=== PATIENT | male | born 1950 | race Two or more races ===

== ENCOUNTER 2020-05-22 21:46 | Inpatient (IN) | payer OTHER ==
[~2020-05-22] VITALS: Ht 167.6 cm; Wt 91.6 kg
[2020-05-22 22:03] VITALS: BP 259/193
[2020-05-22 22:15] VITALS: BP 153/94
[2020-05-22] MEDS ORDERED: cefTRIAXone 1 GM in NS 55 ML IVPB ONE (22:15)
[2020-05-22] MEDS ORDERED: Enoxaparin 80mg Inj SUBQ ONE (22:15)
[2020-05-22] MEDS ORDERED: Azithromycin 500 MG in NS 275 ML IV ONE (22:15)
[2020-05-22] MEDS ORDERED: dexAMETHasone 10mg/ml Inj IV ONE (22:15)
--- NOTE | 2020-05-22 22:18 | Emergency Room Report ---
History of Present Illness General Chief Complaint: Dyspnea/Respdistress Source: Patient Present Illness HPI This is a 69-year-old male with a history of high blood pressure, diabetes and renal failure on hemodialysis. He presents with chief complaint of shortness of breath. He has been sick for the last 4 to 5 days. He has cough and congestion. Also fever and chills and body pain. Cough is nonproductive in nature. Symptom got worse today with increasing shortness of breath. Per EMS he was hypoxic on room air. His pulse ox was mid 80 percentile. He was placed on oxygen and sent here. Exertion and lying flat made it worse. Rest made it better. Denies any nausea vomiting or diarrhea. No sick contact. 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 COVID-19 Screening: Positive COVID-19 COVID-19 Testing Source: outside source Patient History Past Medical History: see triage record, old chart reviewed, DM, HTN, renal disease, dialysis Past Surgical History: none Pertinent Family History: none Social History: Denies: smoking Immunizations: other Reviewed Nursing Documentation: PMH: Agreed; PSxH: Agreed Nursing Documentation-PMH Hx Hypertension: Yes Review of Systems Constitutional: Reports: chills, fever, weakness Eye: Denies: eye pain, blurred vision ENT: Denies: ear pain, nose congestion, throat swelling Respiratory: Reports: cough, shortness of breath, CHAPA Cardiovascular: Denies: chest pain, palpitations Gastrointestinal: Denies: abdominal pain, diarrhea, nausea, vomiting Musculoskeletal: Denies: back pain, joint pain Skin: Denies: rash Neurological: Denies: headache, numbness Endocrine: Denies: increased thirst, increased urine Hematologic/Lymphatic: Denies: easy bruising All Other Systems: negative except mentioned in HPI Physical Exam Vital Signs Date Time Temp Pulse Resp B/P (MAP) Pulse Ox O2 Delivery O2 Flow Rate FiO2 05/22/20 21:53 101.1 110 22 259/193 (215) 90 Non-Rebreather 15.0 Vitals with high blood pressure, fever and hypoxia Sp02 EP Interpretation: reviewed, abnormal General Appearance: alert, moderate distress, other - Ill-appearing Head: normocephalic, atraumatic Eyes: bilateral eye PERRL, bilateral eye EOMI ENT: hearing grossly normal, normal pharynx Neck: full range of motion, supple, no meningismus Respiratory: chest non-tender, respiratory distress, decreased breath sounds, accessory muscle use, rhonchi, wheezing Cardiovascular #1: regular rate, rhythm, no murmur Gastrointestinal: normal bowel sounds, non tender, no mass, no organomegaly, no bruit, non-distended Musculoskeletal: back normal, normal range of motion, gait/station normal Psychiatric: mood/affect normal Procedures Critical Care Time Critical Care Time Critical care is mandated in this patient who presented with acute respiratory failure secondary to Covid pneumonia. Patient require my urgent intervention to attenuate the risks of respiratory collapse which may lead to cardiovascular collapse and . Critical care time is 35 minutes excluding any reportable procedure. Critical care time included evaluation, multiple reevaluation, looking at old charts, interpreting laboratory and diagnostic data, discussing case with patient and family and consultants, and charting. Medical Decision Making Diagnostic Impression: Primary Impression: Pneumonia due to COVID-19 virus Additional Impressions: Acute respiratory failure with hypoxia ACS (acute coronary syndrome) Anemia, chronic renal failure Qualified Codes: N18.5 - Chronic kidney disease, stage 5; D63.1 - Anemia in chronic kidney disease Hyperglycemia due to type 2 diabetes mellitus Qualified Codes: E11.65 - Type 2 diabetes mellitus with hyperglycemia Pancreatitis, acute Qualified Codes: K85.90 - Acute pancreatitis without necrosis or infection, unspecified ER Course This patient presents with hypoxia secondary to Covid pneumonia. Better on oxygen. Antibiotics, steroid and Lovenox given here. Prognosis is guarded because of his medical problem and diabetes. Patient will be admitted to the hospital. I contacted Dr. Seals for admission. EKG Diagnostic Results Troponin ordered: Yes Rate: normal Rhythm: NSR ST Segments: no acute changes Rhythm Strip Diag. Results EP Interpretation: yes Rate: 94 Rhythm: NSR, no PVC's, no ectopy Chest X-Ray Diagnostic Results Chest X-Ray Diagnostic Results : Chest X-Ray Ordered: Yes # of Views/Limited/Complete: 1 View Indication: Shortness of Breath EP Interpretation: Yes Interpretation: no effusion, no pneumothorax, other - Bilateral infiltrates Impression: Other - b/l infiltrates Last Vital Signs Date Time Temp Pulse Resp B/P (MAP) Pulse Ox O2 Delivery O2 Flow Rate FiO2 05/22/20 21:53 101.1 110 22 259/193 (215) 90 Non-Rebreather 15.0 Status: improved Disposition: ADMITTED INPATIENT Condition: Serious Referrals: NON PHYSICIAN (PCP) Forrest Bedolla MD May 22, 2020 22:18
[2020-05-22] MEDS: Albuterol ud Inhalation HHN PRN ×2 (22:28→22:59)
--- NOTE | 2020-05-22 22:41 | Diagnostic Imaging Report ---
EXAM: XR Chest, 1 View CLINICAL HISTORY: SOB TECHNIQUE: Frontal view of the chest. COMPARISON: None FINDINGS: Lungs: There are patchy bilateral infiltrates. Pleural space: There may be trace pleural effusions. There is no evidence of pneumothorax. Heart: The heart size at the upper limits of normal. Mediastinum: Unremarkable. Bones/joints: Unremarkable. IMPRESSION: Patchy bilateral infiltrate, worrisome for atypical pneumonia such as Covid 19.
[2020-05-22 23:35] LABS: CREATININE 22.9 MG/DL (0.55-1.30); POTASSIUM 4.8 MMOL/L (3.5-5.1)
[2020-05-22 23:55] LABS: ALBUMIN/GLOBULIN RATIO 0.7 (1.0-2.7); BILIRUBIN,TOTAL 0.6 MG/DL (0.2-1.0); CKMB 15.2 NG/ML (0.0-3.6)
[2020-05-22 23:57] LABS: BASOPHILS % (AUTO) 0.2 % (0.0-2.0); EOSINOPHILS % (AUTO) 0.1 % (0.0-3.0); HEMATOCRIT 27.6 % (42.0-52.0); HEMOGLOBIN 10.5 G/DL (14.2-18.0); LYMPHOCYTES % (AUTO) 10.5 % (20.0-45.0); MEAN CORPUSCULAR VOLUME 87 FL (80-99); MONOCYTES % (AUTO) 5.5 % (1.0-10.0); NEUTROPHILS % (AUTO) 83.7 % (45.0-75.0); PLATELET COUNT 197 K/UL (150-450); RED BLOOD COUNT 3.19 M/UL (4.70-6.10); RED CELL DISTRIBUTION WIDTH 12.8 % (11.6-14.8); WHITE BLOOD COUNT 7.5 K/UL (4.8-10.8)
[2020-05-23] VITALS (8 sets, daily range): BP systolic 93–161; BP diastolic 55–71
[2020-05-23 00:01] LABS: INR 1.2 (0.9-1.1)
[2020-05-23 00:23] LABS: APPEARANCE,URINE SLIGHTLY CLOUDY; BILIRUBIN, URINE NEGATIVE (NEGATIVE); COLOR,URINE PALE YELLOW; GLUCOSE, URINE (UA) 3+ (NEGATIVE); KETONES,URINE NEGATIVE (NEGATIVE); LEUKOCYTE ESTERASE ,URINE NEGATIVE (NEGATIVE); NITRITE,URINE NEGATIVE (NEGATIVE); PH,URINE 7 (4.5-8.0); PROTEIN,URINE 4+ (NEGATIVE); UROBILINOGEN,URINE NORMAL MG/DL (0.0-1.0)
[2020-05-23] MEDS ORDERED: Albuterol ud Inhalation HHN SCH (03:00)
--- NOTE | 2020-05-23 09:26 | Consultation ---
Consult Note Consult Note I am asked to eval and arrange for dialysis for the patient at the request of Dr Warner Chief Complaint: Dyspnea/Respdistress This is a 69-year-old male with a history of high blood pressure, diabetes and renal failure on hemodialysis. He presents with chief complaint of shortness of breath. He has been sick for the last 4 to 5 days. He has cough and congestion. Also fever and chills and body pain. Cough is nonproductive in nature. Symptom got worse today with increasing shortness of breath. Per EMS he was hypoxic on room air. His pulse ox was mid 80 percentile. He was placed on oxygen and sent here. Exertion and lying flat made it worse. Rest made it better. Denies any nausea vomiting or diarrhea. No sick contact. 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 COVID-19 Screening: Positive COVID-19 COVID-19 Testing Source: outside source Past Medical History: see triage record, old chart reviewed, DM, HTN, renal disease, dialysis Past Surgical History: none Pertinent Family History: none Social History: Denies: smoking Immunizations: other Reviewed Nursing Documentation: PMH: Agreed; PSxH: Agreed Hx Hypertension: Yes Vital Signs Date Time Temp Pulse Resp B/P (MAP) Pulse Ox O2 Delivery O2 Flow Rate FiO2 05/22/20 21:53 101.1 110 22 259/193 (215) 90 Non-Rebreather 15.0 Vitals with high blood pressure, fever and hypoxia PHYSICAL EXAMINATION: VITAL SIGNS: Temperature 98.9, pulse 62, blood pressure 131/65. Oxygen by nonrebreathing mask 15 L/min. HEART: Normal rate. LUNGS: Slightly decreased sounds. ABDOMEN: Soft, nontender. EXTREMITIES: No edema. Has AV graft in the left arm. NEUROLOGIC: He is awake, responsive. LABORATORY AND DIAGNOSTIC DATA: WBC 7.5, hemoglobin 10.5, hematocrit 27.6, platelets are 197. Lymphocyte is low, 10.5%. Troponin is 0.138. Sodium 131, potassium 4.8, chloride 89, bicarb 21, BUN 134, creatinine 22.9, glucose is 226, bilirubin 0.6, LDH 851, CK-MB 2143. Albumin is 3. Chest x-ray showed bilateral infiltrates may indicate atypical pneumonia such as COVID. COVID-19 test assay was positive. . Assessment/Plan Imp: Patient is being admitted with COVID-19 pneumonia Has acute respiratory distress and hypoxia End-stage renal disease missed last 2 dialysis Anemia of chronic kidney disease Pancreatitis Hyperglycemia Sugg: Hemodialysis today Renal diet Protonix, Renvela Nitropaste, aspirin Sliding scale insulin, Starlix Per orders Per consultants Taran Spears MD May 23, 2020 09:26
[2020-05-23] MEDS ORDERED: Acetaminophen 500mg (ES) tab ORAL PRN ×2 (10:15→23:45)
[2020-05-23 11:09] LABS: HEMATOCRIT 29.4 % (42.0-52.0); HEMOGLOBIN 10.7 G/DL (14.2-18.0); MEAN CORPUSCULAR VOLUME 88 FL (80-99); PLATELET COUNT 201 K/UL (150-450); RED BLOOD COUNT 3.33 M/UL (4.70-6.10); RED CELL DISTRIBUTION WIDTH 13.7 % (11.6-14.8); WHITE BLOOD COUNT 7.9 K/UL (4.8-10.8)
[2020-05-23 11:27] LABS: ALANINE AMINOTRANSFERASE 72 U/L (12-78); ALBUMIN 2.9 G/DL (3.4-5.0); ALBUMIN/GLOBULIN RATIO 0.6 (1.0-2.7); ALKALINE PHOSPHATASE 76 U/L (46-116); ANION GAP 22 mmol/L (5-15); ASPARTATE AMINO TRANSFERASE 112 U/L (15-37); BILIRUBIN,TOTAL 0.6 MG/DL (0.2-1.0); BLOOD UREA NITROGEN 146 mg/dL (7-18); CALCIUM 8.1 MG/DL (8.5-10.1); CARBON DIOXIDE 19 MMOL/L (21-32); CHLORIDE 88 MMOL/L (98-107); CHOLESTEROL 167 MG/DL (< 200); CREATININE 23.6 MG/DL (0.55-1.30); GAMMA GLUTAMYL TRANSPEPTIDASE 67 U/L (5-85); HDL CHOLESTEROL 21 MG/DL (40-60); PHOSPHORUS 10.3 MG/DL (2.5-4.9); POTASSIUM 5.5 MMOL/L (3.5-5.1); SODIUM 129 MMOL/L (136-145); TRIGLYCERIDES 437 MG/DL (30-150)
[2020-05-23 12:50] LABS: % IRON SATURATION 21 % (15-50); IRON 31 ug/dL (50-175); TOTAL IRON BINDING CAPACITY 148 ug/dL (250-450)
[2020-05-23] MEDS ORDERED: dexAMETHasone 10mg/ml Inj IV SCH (14:00)
[2020-05-23] MEDS ORDERED: HydrALAZINE 25mg tab ORAL PRN (14:23)
[2020-05-23] MEDS ORDERED: Metoclopramide 10mg/2ml Inj IVP PRN (14:24)
[2020-05-23] MEDS ORDERED: Sodium Polystyrene Sulfonate 15gm Powder ORAL SCH (14:30)
[2020-05-23] MEDS ORDERED: Varibar Nectar 240ml MC PRN (14:45)
[2020-05-23] MEDS ORDERED: Varibar Honey 250ml MC PRN (14:45)
[2020-05-23] MEDS ORDERED: Varibar Thin Liquid powder 148gm MC PRN (14:45)
[2020-05-23] MEDS ORDERED: Varibar Pudding 230ml MC PRN (14:45)
[2020-05-23] MEDS: Nitroglycerin Patch 0.4mg TDERMAL SCH (15:01)
[2020-05-23] MEDS: Aspirin Baby 81mg ORAL SCH (15:01)
--- NOTE | 2020-05-23 16:00 | Consultation ---
DATE OF CONSULTATION: 05/23/2020 INFECTIOUS DISEASE CONSULT PRIMARY ATTENDING PHYSICIAN: Estela Seals MD REASON FOR CONSULT: Sepsis, COVID-19 pneumonia. HISTORY OF PRESENT ILLNESS: This is a 69-year-old male admitted last night from home. The patient has shortness of breath, cough, congestion for 4 to 5 days, subjective fever, body pain, had decrease in O2 saturation to 80s, had fever of 101 in the ER, heart rate of 110 and was tachypneic. PAST MEDICAL HISTORY: Significant for diabetes mellitus, hypertension, anemia, end-stage renal disease, on hemodialysis. PAST SURGICAL HISTORY: Left arm AV graft. ALLERGIES: No known drug allergies. MEDICATIONS: Tylenol and albuterol. Got a dose of ceftriaxone and azithromycin and dexamethasone in the ER. SOCIAL HISTORY: Single. No history of smoking. The patient is a relatively poor historian. PHYSICAL EXAMINATION: VITAL SIGNS: Temperature 98.9, pulse 62, blood pressure 131/65. Oxygen by nonrebreathing mask 15 L/min. HEART: Normal rate. LUNGS: Slightly decreased sounds. ABDOMEN: Soft, nontender. EXTREMITIES: No edema. Has AV graft in the left arm. NEUROLOGIC: He is awake, responsive. LABORATORY AND DIAGNOSTIC DATA: WBC 7.5, hemoglobin 10.5, hematocrit 27.6, platelets are 197. Lymphocyte is low, 10.5%. Troponin is 0.138. Sodium 131, potassium 4.8, chloride 89, bicarb 21, BUN 134, creatinine 22.9, glucose is 226, bilirubin 0.6, LDH 851, CK-MB 2143. Albumin is 3. Chest x-ray showed bilateral infiltrates may indicate atypical pneumonia such as COVID. COVID-19 test assay was positive. IMPRESSION: Sepsis with tachycardia, tachypnea, and fever. Had COVID-19 disease, hypoxemic respiratory failure, end-stage renal disease, on hemodialysis, diabetes, hyperglycemia, anemia, lymphocytopenia, hypertension. RECOMMENDATION: Continue with dexamethasone. The patient is not eligible for remdesivir because of renal failure. Seems also to have pancreatitis. Lipase level is 1362. At the end of my exam, I thank Dr. Seals for involving me in the care of this patient. Kyaw Andrews M.D. DR: SOM JOB#: [id number] CC: STEFFI
[2020-05-23] MEDS: NovoLOG Insulin Flexpen SUBQ SCH ×2 (16:52→20:27)
[2020-05-23] MEDS: Docusate 100mg cap ORAL SCH (17:33)
--- NOTE | 2020-05-23 18:15 | Consultation ---
DATE OF CONSULTATION: 05/23/2020 PULMONARY CONSULTATION CONSULTING PHYSICIAN: Clyde Griffin MD HISTORY OF PRESENT ILLNESS: This is a 69-year-old male with a history of ESRD, on dialysis. He has missed dialysis for approximately 5 days. He is known hypertensive and is also diabetic. The patient came to the hospital with cough and shortness of breath. He was found to be markedly hypoxic and he was placed on supplemental oxygen. Currently on my assessment, he is on non-rebreather mask. Upon review of his additional testing, he has also tested positive for COVID-19 pneumonia. PAST MEDICAL HISTORY: 1. ESRD, on dialysis. 2. Hypertension. 3. Diabetes mellitus. HOME MEDICATIONS: Reviewed and reconciled in the chart. REVIEW OF SYSTEMS: Denies any headaches, hematemesis, melena, hematochezia, night sweats, or weight loss. PHYSICAL EXAMINATION: GENERAL: Reveals a 69-year-old male. VITAL SIGNS: Blood pressure 130/60, heart rate 64, respirations 20, O2 saturation 97% on non-rebreather mask. HEENT: Unremarkable. CHEST: Showed decreased breath sounds bilaterally with normal heart sounds. ABDOMEN: Soft. EXTREMITIES: There is no edema. LABORATORY AND DIAGNOSTIC DATA: Lab testing shows hemoglobin 10.7. Creatinine is noted to be 22. Ferritin 1062. AST 127. LDH 851. Lipase 1362. ABG, pH 7.34, pCO2 of 30, and pO2 of 88. Coags show D-dimer of 0.97. Urinalysis is negative. Imaging study of chest was obtained, which shows patchy bilateral infiltrates. IMPRESSION: 1. COVID pneumonia. 2. Pulmonary edema. 3. ESRD, on dialysis. 4. Hypertension. 5. Diabetes mellitus. 6. Elevated inflammatory markers. 7. Pancreatitis. DISCUSSION: Admit to the hospital. The patient needs dialysis, which is being arranged. He will benefit from Decadron, which I will order. Defer use of remdesivir to ID specialist. Agree with broad-spectrum antibiotics. DVT prophylaxis with Lovenox/subcu heparin. Keep NPO due to elevated lipase. We will follow carefully. Clyde Griffin M.D. DR: Soila JOB#: [id number] CC:
[2020-05-23] MEDS: Heparin 5000 units/ml inj SUBQ SCH (20:47)
--- NOTE | 2020-05-23 21:20 | Cardiac Electrophysiology PN ---
Subjective Subjective [id number] Objective Last 24 Hour Vital Signs Date Time Temp Pulse Resp B/P (MAP) Pulse Ox O2 Delivery O2 Flow Rate FiO2 05/23/20 16:00 78 05/23/20 16:00 97.7 60 22 132/71 (91) 96 05/23/20 15:01 130/68 05/23/20 12:00 72 05/23/20 12:00 96.8 81 26 130/68 (88) 96 05/23/20 09:00 Non-Rebreather 15.0 05/23/20 08:49 Non-Rebreather 15.0 05/23/20 07:56 98.9 62 23 131/65 97 Non-Rebreather 15.0 100 05/23/20 07:17 98.9 62 23 131/65 97 Non-Rebreather 15.0 100 05/23/20 05:01 98.9 88 31 132/55 100 Non-Rebreather 15.0 100 05/23/20 03:14 98.9 106 28 148/66 98 Non-Rebreather 15.0 100 05/23/20 01:30 89 25 138/64 98 Non-Rebreather 15.0 05/23/20 00:15 99.1 94 29 118/65 100 Non-Rebreather 15.0 100 05/22/20 22:59 99.1 05/22/20 22:43 95 3 97 Non-Rebreather 15.0 100 94 29 96 05/22/20 22:37 97 34 100 Non-Rebreather 15.0 100 93 31 97 05/22/20 22:29 97 34 100 Non-Rebreather 15.0 100 91 30 100 05/22/20 22:15 101.1 69 28 153/94 99 Non-Rebreather 15.0 05/22/20 22:03 110 22 Non-Rebreather 15.0 05/22/20 22:03 101.1 112 22 259/193 90 Non-Rebreather 15.0 05/22/20 21:53 101.1 110 22 259/193 (215) 90 Non-Rebreather 15.0 Intake and Output 05/22/20 05/23/20 19:00 07:00 Intake Total 0 ml Balance 0 ml Intake Oral 0 ml Laboratory Tests Test 05/22/20 22:30 05/22/20 23:50 12/26/20 10:10 05/23/20 10:35 White Blood Count 7.5 K/UL (4.8-10.8) 7.9 K/UL (4.8-10.8) Red Blood Count 3.19 M/UL (4.70-6.10) L 3.33 M/UL (4.70-6.10) L Hemoglobin 10.5 G/DL (14.2-18.0) L 10.7 G/DL (14.2-18.0) L Hematocrit 27.6 % (42.0-52.0) L 29.4 % (42.0-52.0) L Mean Corpuscular Volume 87 FL (80-99) 88 FL (80-99) Mean Corpuscular Hemoglobin 32.8 PG (27.0-31.0) H 32.2 PG (27.0-31.0) H Mean Corpuscular Hemoglobin Concent 37.9 G/DL (32.0-36.0) H 36.5 G/DL (32.0-36.0) H Red Cell Distribution Width 12.8 % (11.6-14.8) 13.7 % (11.6-14.8) Platelet Count 197 K/UL (150-450) 201 K/UL (150-450) Mean Platelet Volume 7.5 FL (6.5-10.1) 7.6 FL (6.5-10.1) Neutrophils (%) (Auto) 83.7 % (45.0-75.0) H % (45.0-75.0) Lymphocytes (%) (Auto) 10.5 % (20.0-45.0) L % (20.0-45.0) Monocytes (%) (Auto) 5.5 % (1.0-10.0) % (1.0-10.0) Eosinophils (%) (Auto) 0.1 % (0.0-3.0) % (0.0-3.0) Basophils (%) (Auto) 0.2 % (0.0-2.0) % (0.0-2.0) Prothrombin Time 13.2 SEC (9.30-11.50) H Prothromb Time International Ratio 1.2 (0.9-1.1) H Activated Partial Thromboplast Time 34 SEC (23-33) H D-Dimer 0.97 mg/L FEU (0.00-0.49) H Sodium Level 131 MMOL/L (136-145) L 129 MMOL/L (136-145) L Potassium Level 4.8 MMOL/L (3.5-5.1) 5.5 MMOL/L (3.5-5.1) H Chloride Level 89 MMOL/L (98-107) L 88 MMOL/L (98-107) L Carbon Dioxide Level 21 MMOL/L (21-32) 19 MMOL/L (21-32) L Anion Gap 21 mmol/L (5-15) H 22 mmol/L (5-15) H Blood Urea Nitrogen 134 mg/dL (7-18) H 146 mg/dL (7-18) H Creatinine 22.9 MG/DL (0.55-1.30) H 23.6 MG/DL (0.55-1.30) H Estimat Glomerular Filtration Rate 2.0 mL/min (>60) 1.9 mL/min (>60) Glucose Level 226 MG/DL (74-106) H 449 MG/DL (74-106) #H Lactic Acid Level < 0.30 mmol/L (0.4-2.0) L 1.90 mmol/L (0.4-2.0) Calcium Level 8.0 MG/DL (8.5-10.1) L 8.1 MG/DL (8.5-10.1) L Ferritin 1062 NG/ML (8-388) H Total Bilirubin 0.6 MG/DL (0.2-1.0) 0.6 MG/DL (0.2-1.0) Aspartate Amino Transf (AST/SGOT) 127 U/L (15-37) H 112 U/L (15-37) H Alanine Aminotransferase (ALT/SGPT) 72 U/L (12-78) 72 U/L (12-78) Alkaline Phosphatase 71 U/L (46-116) 76 U/L (46-116) Lactate Dehydrogenase 851 U/L (81-234) H Total Creatine Kinase 2143 U/L (26-308) H Creatine Kinase MB 15.2 NG/ML (0.0-3.6) H Creatine Kinase MB Relative Index 0.7 Troponin I 0.138 ng/mL (0.000-0.056) 0.469 ng/mL (0.000-0.056) C-Reactive Protein, Quantitative 29.1 mg/dL (0.00-0.90) H 36.9 mg/dL (0.00-0.90) H Pro-B-Type Natriuretic Peptide 1804 pg/mL (0-125) H 3172 pg/mL (0-125) H Total Protein 7.2 G/DL (6.4-8.2) 7.6 G/DL (6.4-8.2) Albumin 3.0 G/DL (3.4-5.0) L 2.9 G/DL (3.4-5.0) L Globulin 4.2 g/dL 4.7 g/dL Albumin/Globulin Ratio 0.7 (1.0-2.7) L 0.6 (1.0-2.7) L Lipase 1362 U/L (73-393) H 992 U/L (73-393) H Urine Color Pale yellow Urine Appearance Slightly cloudy Urine pH 7 (4.5-8.0) Urine Specific [place] 1.010 (1.005-1.035) Urine Protein 4+ (NEGATIVE) H Urine Glucose (UA) 3+ (NEGATIVE) H Urine Ketones Negative (NEGATIVE) Urine Blood 4+ (NEGATIVE) H Urine Nitrite Negative (NEGATIVE) Urine Bilirubin Negative (NEGATIVE) Urine Urobilinogen Normal MG/DL (0.0-1.0) Urine Leukocyte Esterase Negative (NEGATIVE) Urine RBC 0-2 /HPF (0 - 0) H Urine WBC 0-2 /HPF (0 - 0) Urine Squamous Epithelial Cells Occasional /LPF Urine Bacteria Occasional /HPF (NONE) Arterial Blood pH 7.341 (7.350-7.450) Arterial Blood Partial Pressure CO2 30.5 mmHg (35.0-45.0) L Arterial Blood Partial Pressure O2 88.5 mmHg (75.0-100.0) Arterial Blood HCO3 16.1 mmol/L (22.0-26.0) *L Arterial Blood Oxygen Saturation 94.7 % (95-100) L Arterial Blood Base Excess -8.5 (-2-2) L Micheal Test Positive Differential Total Cells Counted 100 Neutrophils % (Manual) 88 % (45-75) H Lymphocytes % (Manual) 7 % (20-45) L Monocytes % (Manual) 5 % (1-10) Eosinophils % (Manual) 0 % (0-3) Basophils % (Manual) 0 % (0-2) Band Neutrophils 0 % (0-8) Platelet Estimate Adequate Platelet Morphology Normal Red Blood Cell Morphology Normal Uric Acid 10.0 MG/DL (2.6-7.2) H Phosphorus Level 10.3 MG/DL (2.5-4.9) H Magnesium Level 2.7 MG/DL (1.8-2.4) H Iron Level 31 ug/dL (50-175) L Total Iron Binding Capacity 148 ug/dL (250-450) L Percent Iron Saturation 21 % (15-50) Unsaturated Iron Binding 117 ug/dL (112-346) Gamma Glutamyl Transpeptidase 67 U/L (5-85) Triglycerides Level 437 MG/DL (30-150) H Cholesterol Level 167 MG/DL (< 200) LDL Cholesterol 75 mg/dL (<100) HDL Cholesterol 21 MG/DL (40-60) L Cholesterol/HDL Ratio 8.0 (3.3-4.4) H Vitamin B12 Level > 2000 PG/ML (193-986) H Folate 12.4 NG/ML (8.6-58.9) Thyroid Stimulating Hormone (TSH) 0.389 uiU/mL (0.358-3.740) Hepatitis B Surface Antigen Pending Test 05/23/20 16:45 POC Whole Blood Glucose 414 MG/DL (74-106) H Microbiology Date/Time Source Procedure Growth Status 05/23/20 02:40 Rectum Received 05/22/20 22:30 Nasopharynx SARS-CoV-2 RdRp Gene Assay - Final Complete Rhett Nayak MD May 23, 2020 21:20
--- NOTE | 2020-05-23 22:15 | Consultation ---
DATE OF CONSULTATION: 05/23/2020 CARDIOLOGY CONSULTATION REFERRING PHYSICIAN: Estela Seals M.D. REASON FOR CONSULTATION: Shortness of breath and tachycardia, and the patient is with COVID pneumonia. HISTORY OF PRESENT ILLNESS: The patient is a 69-year-old man with history of hypertension and end-stage renal disease, on hemodialysis, missed dialysis for about 5 days. The patient is also diabetic and hypertensive and came to the emergency room with shortness of breath and cough and was found to be profoundly hypoxic. The patient was found to be tested positive for COVID-19 and was admitted. Cardiology consultation was obtained for further evaluation. REVIEW OF SYSTEMS: Negative other than what is mentioned in history of present illness. PAST MEDICAL HISTORY: As mentioned above. FAMILY HISTORY: Noncontributory MEDICATION: Per reconciliation. SOCIAL HISTORY: He lives at home. Does not smoke or drink alcohol. PHYSICAL EXAMINATION: VITAL SIGNS: Blood pressure 130/60, pulse 64, respirations 20, temperature 98, and saturation 97%on nonrebreather facemask. HEAD AND NECK: No JVD. LUNGS: Coarse rhonchi. CARDIOVASCULAR: Regular S1 and S2 with no gallop. ABDOMEN: Soft. EXTREMITIES: No pitting edema. LABORATORY AND DIAGNOSTIC DATA: His labs show white count of 7.9, hematocrit 10.7, hematocrit 29.5, platelet count of 201. Sodium 129, potassium 5.5, BUN 146, creatinine , and glucose of 449. Lactic acid less than 0.38. Troponin is 0.469. ASSESSMENT AND PLAN: 1. Troponin elevation, likely due to renal failure in this patient who is on hemodialysis. The EKG shows sinus rhythm at a rate of [address]-T wave abnormalities. The patient is already on aspirin and low-dose beta-rafael to his medical regimen. 2. Hypertension. Add low-dose beta-rafael. The patient is already on hemodialysis. 3. End-stage renal disease, on hemodialysis. 4. Diabetes, on insulin. Blood glucose is not controlled, in the 400. 5. COVID pneumonia, on dexamethasone. Thank you very much for allowing me to participate in the care of this patient. Please do not hesitate to contact me for any questions regarding my evaluation. Rhett Nayak M.D. DR: TAMELA JOB#: [id number] CC:
[2020-05-24] VITALS: BP_SYST 114; BP_SYST 125; BP_DIAS 62; BP_DIAS 73
[2020-05-24] MEDS ORDERED: Levemir Flexpen SUBQ SCH
--- NOTE | 2020-05-24 01:30 | History and Physical Report ---
DATE OF ADMISSION: 05/22/2020 HISTORY OF PRESENT ILLNESS: Patient comes in with end-stage renal disease, history of diabetes, and hypertension with hypoxia. He was on 100% non-rebreather. Troponin was also borderline elevated. Chest x-ray showed bilateral infiltrate. Patient is admitted for COVID positive pneumonia, hypoxia. Patient basically had shortness of breath for the past 5 days, was complaining of cough, congestion. Patient also had fever, chills, and myalgias as well. Patient's shortness of breath became worse and came in with hypoxia, was placed on oxygen. Patient denies nausea, vomiting, or diarrhea. Denies loss of taste. PAST MEDICAL HISTORY: Diabetes, hypertension, end-stage renal disease, on hemodialysis. PAST SURGICAL HISTORY: Related to hemodialysis. FAMILY HISTORY: Does have history of diabetes, hypertension. SOCIAL HISTORY: Denies history of smoking. Denies history of alcohol or illicit drugs. REVIEW OF SYSTEMS: HEENT: Denies headaches. RESPIRATORY: Reports shortness of breath and cough for 5 days. CARDIOVASCULAR: Denies chest pain. GASTROINTESTINAL: Denies nausea, vomiting, or diarrhea. EXTREMITIES: Denies pain. CENTRAL NERVOUS SYSTEM: Denies change in speech pattern. Feels weak. ALLERGIES: No known allergies. MEDICATIONS: Protonix, , docusate. PHYSICAL EXAMINATION: VITAL SIGNS: Temperature is 98.9, pulse is 62, blood pressure is 131/65. HEENT: PERRLA. NECK: Supple. No lymphadenopathy. CHEST: Clear to auscultation. CARDIOVASCULAR: Regular rate and rhythm. No murmurs or extra sounds. GASTROINTESTINAL: Soft, nontender, nondistended. No organomegaly. CHEST: Bibasilar rhonchi. ABDOMEN: Soft, nontender. No organomegaly. EXTREMITIES: No edema. NEUROLOGIC: Has generalized weakness. Reflexes in both sides. LABORATORY AND DIAGNOSTIC DATA: Chest x-ray shows bilateral infiltrates. WBC of 7.5, hemoglobin 10.5, platelets of 197. Sodium 129, potassium 5.5, BUN of 146, creatinine of 23.6, glucose of 449. Troponin of 0.469. Lipase is 992. ASSESSMENT AND PLAN: COVID positive pneumonia, hypoxia, end-stage renal disease on hemodialysis, hypertension, diabetes. Patient has also hyperglycemia, elevated troponin, part of it could be renal leak. I have asked Dr. Griffin, Dr. Spears, Dr. Nayak, Dr. Kyaw Andrews, Dr. Feliciano Lee to see the patient to help with the above-mentioned abnormalities and abnormal findings and abnormal laboratory findings as well as abnormal imaging. Antibiotics per Dr. Kyaw Andrews. Estela Seals M.D. DR: ELANA JOB#: [id number] CC:
--- NOTE | 2020-05-24 01:44 | Consultation ---
DATE OF CONSULTATION: 05/23/2020 ENDOCRINOLOGY CONSULTATION CONSULTING PHYSICIAN: Dez Willard MD REFERRING PHYSICIAN: Estela Seals MD REASON FOR CONSULTATION: I was asked to see this 69-year-old male by Dr. Estela Seals in Endocrinology consultation for management of type 2 diabetes mellitus out of control. Patient has history of end-stage renal disease on dialysis . FAMILY HISTORY: Unremarkable. PERSONAL HISTORY: Negative for tobacco, alcohol, or drug abuse. REVIEW OF SYSTEMS: A 14-point review unremarkable. PHYSICAL EXAMINATION: GENERAL: Patient is in no acute distress. VITAL SIGNS: Blood pressure is 114/62, pulse 92, respirations . HEAD AND NECK: Unremarkable. LUNGS: breath sounds. HEART: Distant. ABDOMEN: Soft. Bowel sounds present. EXTREMITIES: No edema. NEUROLOGICAL: Cranial nerves II through XII are intact. Toes are downgoing to plantar stimulation. LABORATORY DATA: Glucose . BNP . ASSESSMENT: 1. Diabetes mellitus, type 2, out of control. 2. End-stage renal disease, on dialysis. 3. . Dr. Nayak per Nephrology. The patient is started on Levemir insulin 10 units q.12h., sliding scale, NovoLog q.i.d. before meals and at bedtime. Hemoglobin A1c will be drawn in the a.m. Renal failure will be followed by Nephrology it security consultant. Dez Willard M.D. DR: JAYDEN JOB#: [id number] CC:
[2020-05-24 04:00] VITALS: BP 130/70
[2020-05-24] MEDS: NovoLOG Insulin Flexpen SUBQ SCH ×4 (06:07→22:12)
[2020-05-24 08:06] VITALS: BP 128/73
[2020-05-24] MEDS: Docusate 100mg cap ORAL SCH ×3 (08:29→17:16)
[2020-05-24] MEDS: Aspirin Baby 81mg ORAL SCH (08:29)
[2020-05-24] MEDS: Levemir Flexpen SUBQ SCH ×2 (08:31→21:56)
[2020-05-24] MEDS: Heparin 5000 units/ml inj SUBQ SCH ×2 (08:31→21:55)
[2020-05-24] MEDS: dexAMETHasone 10mg/ml Inj IV SCH (08:59)
[2020-05-24 09:04] LABS: HEMATOCRIT 28.7 % (42.0-52.0); HEMOGLOBIN 10.5 G/DL (14.2-18.0); MEAN CORPUSCULAR VOLUME 87 FL (80-99); PLATELET COUNT 250 K/UL (150-450); RED BLOOD COUNT 3.28 M/UL (4.70-6.10); RED CELL DISTRIBUTION WIDTH 13.5 % (11.6-14.8); WHITE BLOOD COUNT 13.2 K/UL (4.8-10.8)
[2020-05-24 09:29] LABS: PHOSPHORUS 8.4 MG/DL (2.5-4.9)
[2020-05-24 09:56] LABS: ALANINE AMINOTRANSFERASE 70 U/L (12-78); ASPARTATE AMINO TRANSFERASE 106 U/L (15-37); BILIRUBIN,TOTAL 0.7 MG/DL (0.2-1.0); BLOOD UREA NITROGEN 97 mg/dL (7-18); CALCIUM 8.7 MG/DL (8.5-10.1); CARBON DIOXIDE 23 MMOL/L (21-32); CHLORIDE 96 MMOL/L (98-107); CREATININE 16.1 MG/DL (0.55-1.30); POTASSIUM 4.3 MMOL/L (3.5-5.1); SODIUM 141 MMOL/L (136-145)
[2020-05-24 09:57] LABS: ALKALINE PHOSPHATASE 82 U/L (46-116)
--- NOTE | 2020-05-24 10:00 | Pulmonology Progress Note ---
Subjective Interval Events: None new; S/p HD Constitutional: Reports: no symptoms HEENT: Repors: no symptoms Respiratory: Reports: no symptoms Cardiovascular: Reports: no symptoms Gastrointestinal/Abdominal: Reports: no symptoms Genitourinary: Reports: no symptoms Neurologic: Reports: no symptoms Allergies: Coded Allergies: No Known Allergies (Unverified , 05/22/20) Objective Last 24 Hour Vital Signs Date Time Temp Pulse Resp B/P (MAP) Pulse Ox O2 Delivery O2 Flow Rate FiO2 05/24/20 08:35 116 05/24/20 08:29 118 128/73 05/24/20 08:10 Non-Rebreather 15.0 05/24/20 08:06 96.7 118 20 128/73 (91) 96 05/24/20 04:00 115 05/24/20 04:00 97.6 90 20 130/70 (90) 97 05/24/20 00:00 97.0 100 20 125/73 (90) 95 05/24/20 00:00 109 05/23/20 23:52 Non-Rebreather 15.0 05/23/20 20:00 90 05/23/20 20:00 97.7 92 20 114/62 (79) 95 05/23/20 16:00 78 05/23/20 16:00 97.7 60 22 132/71 (91) 96 05/23/20 15:01 130/68 05/23/20 12:00 72 05/23/20 12:00 96.8 81 26 130/68 (88) 96 Intake and Output 05/23/20 05/24/20 19:00 07:00 Intake Total 120 ml Output Total 2000 ml Balance 120 ml -2000 ml Intake Oral 120 ml Output Hemodialysis UF 2000 ml General Appearance: no acute distress HEENT: normocephalic Respiratory: chest wall non-tender, decreased breath sounds Cardiovascular: normal peripheral pulses, normal rate Abdomen: normal bowel sounds Microbiology Date/Time Source Procedure Growth Status 05/23/20 02:40 Rectum Received 05/22/20 22:30 Nasopharynx SARS-CoV-2 RdRp Gene Assay - Final Complete 05/22/20 22:30 Blood Blood Culture - Preliminary NO GROWTH AFTER 24 HOURS Resulted 05/22/20 22:30 Blood Blood Culture - Preliminary NO GROWTH AFTER 24 HOURS Resulted Laboratory Tests 12/26/20 10:10: Arterial Blood pH 7.341L, Arterial Blood Partial Pressure CO2 30.5L, Arterial Blood Partial Pressure O2 88.5, Arterial Blood HCO3 16.1*L, Arterial Blood Oxygen Saturation 94.7L, Arterial Blood Base Excess -8.5L, Micheal Test Positive 05/23/20 10:35: White Blood Count 7.9, Red Blood Count 3.33L, Hemoglobin 10.7L, Hematocrit 29.4L , Mean Corpuscular Volume 88, Mean Corpuscular Hemoglobin 32.2H, Mean Corpuscular Hemoglobin Concent 36.5H, Red Cell Distribution Width 13.7, Platelet Count 201, Mean Platelet Volume 7.6, Neutrophils (%) (Auto) , Lymphocytes (%) (Auto) , Monocytes (%) (Auto) , Eosinophils (%) (Auto) , Basophils (%) (Auto) , Differential Total Cells Counted 100, Neutrophils % (Manual) 88H, Lymphocytes % (Manual) 7L, Monocytes % (Manual) 5, Eosinophils % (Manual) 0, Basophils % (Manual) 0, Band Neutrophils 0, Platelet Estimate Adequate, Platelet Morphology Normal, Red Blood Cell Morphology Normal, Sodium Level 129L, Potassium Level 5.5H, Chloride Level 88L, Carbon Dioxide Level 19L, Anion Gap 22H, Blood Urea Nitrogen 146H, Creatinine 23.6H, Estimat Glomerular Filtration Rate 1.9, Glucose Level 449#H, Lactic Acid Level 1.90, Uric Acid 10.0H, Calcium Level 8.1L, Phosphorus Level 10.3H, Magnesium Level 2.7H, Iron Level 31L, Total Iron Binding Capacity 148L, Percent Iron Saturation 21, Unsaturated Iron Binding 117, Total Bilirubin 0.6, Gamma Glutamyl Transpeptidase 67, Aspartate Amino Transf (AST/SGOT) 112H, Alanine Aminotransferase (ALT/SGPT) 72, Alkaline Phosphatase 76, Troponin I 0.469H, C-Reactive Protein, Quantitative 36.9H, Pro-B-Type Natriuretic Peptide 3172H, Total Protein 7.6, Albumin 2.9L, Globulin 4.7, Albumin/Globulin Ratio 0.6L, Triglycerides Level 437H, Cholesterol Level 167, LDL Cholesterol 75, HDL Cholesterol 21L, Cholesterol/HDL Ratio 8.0H, Lipase 992H , Vitamin B12 Level > 2000H, Folate 12.4, Thyroid Stimulating Hormone (TSH) 0.389, Hepatitis B Surface Antigen [Pending] 05/23/20 16:45: POC Whole Blood Glucose 414H 05/24/20 06:55: White Blood Count 13.2#H, Red Blood Count 3.28L, Hemoglobin 10.5L, Hematocrit 28.7L, Mean Corpuscular Volume 87, Mean Corpuscular Hemoglobin 32.0H, Mean Corpuscular Hemoglobin Concent 36.5H, Red Cell Distribution Width 13.5, Platelet Count 250, Mean Platelet Volume 7.5, Neutrophils (%) (Auto) , Lymphocytes (%) (Auto) , Monocytes (%) (Auto) , Eosinophils (%) (Auto) , Basophils (%) (Auto) , Neutrophils % (Manual) [Pending], Lymphocytes % (Manual) [Pending], Platelet Estimate [Pending], Platelet Morphology [Pending], Sodium Level 141#, Potassium Level 4.3, Chloride Level 96L, Carbon Dioxide Level 23, Blood Urea Nitrogen 97H, Creatinine 16.1H, Estimat Glomerular Filtration Rate 3.0, Glucose Level 284#H, Calcium Level 8.7, Phosphorus Level 8.4H, Magnesium Level 2.4, Total Bilirubin 0.7, Aspartate Amino Transf (AST/SGOT) 106H, Alanine Aminotransferase (ALT/SGPT) 70, Alkaline Phosphatase 82, Troponin I 0.684H, Total Protein 6.7, Albumin 3.0L , Globulin 3.7, Hemoglobin A1c 7.1H Current Medications Medications (Trade) Dose Ordered Sig/Claude Route PRN Reason Start Time Stop Time Status Last Admin Dose Admin Acetaminophen (Tylenol) 500 mg Q4H PRN ORAL Mild Pain (Pain Scale 1-3) 05/23/20 23:45 06/22/20 23:44 Aspirin (ASA) 81 mg DAILY ORAL 05/23/20 15:00 07/07/20 14:59 05/24/20 08:29 Barium Sulfate (Varibar Honey) 250 ml NOW PRN MC RAD 05/23/20 14:45 05/26/20 14:37 Barium Sulfate (Varibar [place]) 240 ml NOW PRN MC RAD 05/23/20 14:45 05/26/20 14:37 Barium Sulfate (Varibar Pudding) 230 ml NOW PRN MC RAD 05/23/20 14:45 05/26/20 14:37 Barium Sulfate (Varibar Thin Liquid powder) 148 gm NOW PRN MC RAD 05/23/20 14:45 05/26/20 14:37 Dexamethasone Sodium Phosphate (Decadron 10mg/ ml Inj) 6 mg DAILY IV 05/24/20 09:00 08/22/20 08:59 05/24/20 08:59 Dextrose (Dextrose 50%) 25 ml Q30M PRN IV Hypoglycemia 05/24/20 00:15 08/22/20 00:14 Dextrose (Dextrose 50%) 50 ml Q30M PRN IV Hypoglycemia 05/24/20 00:15 08/22/20 00:14 Docusate Sodium (Colace) 100 mg THREE TIMES A DAY ORAL 05/23/20 18:00 06/22/20 17:59 05/24/20 08:29 Heparin Sodium (Porcine) (Heparin 5000 units/ml) 5,000 units EVERY 12 HOURS SUBQ 05/23/20 21:00 07/07/20 20:59 05/24/20 08:31 Hydralazine HCl (Apresoline) 25 mg Q4H PRN ORAL BP over 160 systolic 05/23/20 14:23 08/21/20 14:22 Insulin Aspart (NovoLOG) BEFORE MEALS AND HS SUBQ 05/24/20 06:30 08/22/20 06:29 05/24/20 06:07 Insulin Detemir (Levemir) 10 units EVERY 12 HOURS SUBQ 05/24/20 09:00 08/22/20 09:00 05/24/20 08:31 Metoclopramide HCl (Reglan) 10 mg Q6H PRN IVP Nausea & Vomiting 05/23/20 14:24 06/22/20 14:23 Metoprolol Tartrate (Lopressor) 25 mg EVERY 12 HOURS ORAL 05/24/20 09:00 08/22/20 08:59 05/24/20 08:29 Nateglinide (Starlix) 120 mg TIAC ORAL 05/23/20 16:30 06/22/20 16:29 05/24/20 06:06 Nitroglycerin (Ntg) 1 patch Q24H TDERMAL 05/23/20 15:00 06/22/20 14:59 05/23/20 15:01 Pantoprazole (Protonix) 40 mg EVERY 12 HOURS ORAL 05/23/20 21:00 06/22/20 20:59 05/24/20 08:29 Pioglitazone HCl (Actos) 15 mg ACBREAKFAST ORAL 05/24/20 06:30 06/23/20 06:29 05/24/20 06:06 Sevelamer Carbonate (Renvela) 1,600 mg THREE TIMES A DAY ORAL 05/23/20 18:00 08/21/20 17:59 05/24/20 08:29 Assessment/Plan Assessment/Plan IMPRESSION: 1. COVID pneumonia. 2. Pulmonary edema. 3. ESRD, on dialysis. 4. Hypertension. 5. Diabetes mellitus. 6. Elevated inflammatory markers. 7. Pancreatitis. DISCUSSION: S/p HD Continue Decadron Agree with broad-spectrum antibiotics. DVT prophylaxis with Lovenox/subcu heparin. Keep NPO due to elevated lipase. We will follow carefully. Jocelyn Gonzales Omar Syed MD May 24, 2020 10:00
[2020-05-24 12:08] VITALS: BP 127/61
[2020-05-24] MEDS: Nitroglycerin Patch 0.4mg TDERMAL SCH (14:24)
--- NOTE | 2020-05-24 14:39 | Nephrology Progress Note ---
Assessment/Plan Problem List: (1) ESRD (end stage renal disease) on dialysis (2) Pneumonia due to COVID-19 virus (3) Acute respiratory failure with hypoxia (4) Hyperglycemia due to type 2 diabetes mellitus (5) Anemia, chronic renal failure (6) Pancreatitis, acute Assessment Patient is being admitted with COVID-19 pneumonia Has acute respiratory distress and hypoxia End-stage renal disease missed last 2 dialysis Anemia of chronic kidney disease Pancreatitis Hyperglycemia Plan May 24: Patient dialyzed yesterday. We will order dialysis tomorrow. Will adjust phosphate binders. Medication list and labs reviewed. Continue per consultants. Monitor lipase level and check vitamin D level Previously: Hemodialysis today Renal diet Protonix, Renvela Nitropaste, aspirin Sliding scale insulin, Starlix Per orders Per consultants Subjective ROS Limited/Unobtainable: No Constitutional: Reports: malaise, weakness Objective Objective Last 24 Hour Vital Signs Date Time Temp Pulse Resp B/P (MAP) Pulse Ox O2 Delivery O2 Flow Rate FiO2 05/24/20 14:24 127/61 05/24/20 12:08 98.1 108 19 127/61 (83) 98 05/24/20 12:00 106 05/24/20 08:35 116 05/24/20 08:29 118 128/73 05/24/20 08:10 Non-Rebreather 15.0 05/24/20 08:06 96.7 118 20 128/73 (91) 96 05/24/20 04:00 115 05/24/20 04:00 97.6 90 20 130/70 (90) 97 05/24/20 00:00 97.0 100 20 125/73 (90) 95 05/24/20 00:00 109 05/23/20 23:52 Non-Rebreather 15.0 05/23/20 20:00 90 05/23/20 20:00 97.7 92 20 114/62 (79) 95 05/23/20 16:00 78 05/23/20 16:00 97.7 60 22 132/71 (91) 96 05/23/20 15:01 130/68 Intake and Output 05/23/20 05/24/20 19:00 07:00 Intake Total 120 ml Output Total 2000 ml Balance 120 ml -2000 ml Intake Oral 120 ml Output Hemodialysis UF 2000 ml Current Medications Medications (Trade) Dose Ordered Sig/Claude Route PRN Reason Start Time Stop Time Status Last Admin Dose Admin Acetaminophen (Tylenol) 500 mg Q4H PRN ORAL Mild Pain (Pain Scale 1-3) 05/23/20 23:45 06/22/20 23:44 Aspirin (ASA) 81 mg DAILY ORAL 05/23/20 15:00 07/07/20 14:59 05/24/20 08:29 Barium Sulfate (Varibar Honey) 250 ml NOW PRN RAD 05/23/20 14:45 05/26/20 14:37 Barium Sulfate (Varibar [place]) 240 ml NOW PRN RAD 05/23/20 14:45 05/26/20 14:37 Barium Sulfate (Varibar Pudding) 230 ml NOW PRN RAD 05/23/20 14:45 05/26/20 14:37 Barium Sulfate (Varibar Thin Liquid powder) 148 gm NOW PRN RAD 05/23/20 14:45 05/26/20 14:37 Dexamethasone Sodium Phosphate (Decadron 10mg/ ml Inj) 6 mg DAILY IV 05/24/20 09:00 08/22/20 08:59 05/24/20 08:59 Dextrose (Dextrose 50%) 25 ml Q30M PRN IV Hypoglycemia 05/24/20 00:15 08/22/20 00:14 Dextrose (Dextrose 50%) 50 ml Q30M PRN IV Hypoglycemia 05/24/20 00:15 08/22/20 00:14 Docusate Sodium (Colace) 100 mg THREE TIMES A DAY ORAL 05/23/20 18:00 06/22/20 17:59 05/24/20 14:23 Heparin Sodium (Porcine) (Heparin 5000 units/ml) 5,000 units EVERY 12 HOURS SUBQ 05/23/20 21:00 07/07/20 20:59 05/24/20 08:31 Hydralazine HCl (Apresoline) 25 mg Q4H PRN ORAL BP over 160 systolic 05/23/20 14:23 08/21/20 14:22 Insulin Aspart (NovoLOG) BEFORE MEALS AND HS SUBQ 05/24/20 06:30 08/22/20 06:29 05/24/20 12:01 Insulin Detemir (Levemir) 10 units EVERY 12 HOURS SUBQ 05/24/20 09:00 08/22/20 09:00 05/24/20 08:31 Metoclopramide HCl (Reglan) 10 mg Q6H PRN IVP Nausea & Vomiting 05/23/20 14:24 06/22/20 14:23 Metoprolol Tartrate (Lopressor) 25 mg EVERY 12 HOURS ORAL 05/24/20 09:00 08/22/20 08:59 05/24/20 08:29 Nateglinide (Starlix) 120 mg TIAC ORAL 05/23/20 16:30 06/22/20 16:29 05/24/20 11:56 Nitroglycerin (Ntg) 1 patch Q24H TDERMAL 05/23/20 15:00 06/22/20 14:59 05/24/20 14:24 Pantoprazole (Protonix) 40 mg EVERY 12 HOURS ORAL 05/23/20 21:00 06/22/20 20:59 05/24/20 08:29 Pioglitazone HCl (Actos) 15 mg ACBREAKFAST ORAL 05/24/20 06:30 06/23/20 06:29 05/24/20 06:06 Sevelamer Carbonate (Renvela) 2,400 mg THREE TIMES A DAY ORAL 05/24/20 18:00 08/21/20 17:59 Laboratory Tests 05/23/20 16:45: POC Whole Blood Glucose 414H 05/24/20 06:55: White Blood Count 13.2#H, Red Blood Count 3.28L, Hemoglobin 10.5L, Hematocrit 28.7L, Mean Corpuscular Volume 87, Mean Corpuscular Hemoglobin 32.0H, Mean Corpuscular Hemoglobin Concent 36.5H, Red Cell Distribution Width 13.5, Platelet Count 250, Mean Platelet Volume 7.5, Neutrophils (%) (Auto) , Lymphocytes (%) (Auto) , Monocytes (%) (Auto) , Eosinophils (%) (Auto) , Basophils (%) (Auto) , Differential Total Cells Counted 100, Neutrophils % (Manual) 93H, Lymphocytes % (Manual) 5L, Monocytes % (Manual) 2, Eosinophils % (Manual) 0, Basophils % (Manual) 0, Band Neutrophils 0, Platelet Estimate Adequate, Platelet Morphology Normal, Hypochromasia 1+, Sodium Level 141#, Potassium Level 4.3, Chloride Level 96L, Carbon Dioxide Level 23, Blood Urea Nitrogen 97H, Creatinine 16.1H, Estimat Glomerular Filtration Rate 3.0, Glucose Level 284#H, Hemoglobin A1c 7.1H, Calcium Level 8.7, Phosphorus Level 8.4H, Magnesium Level 2.4, Total Bilirubin 0.7, Aspartate Amino Transf (AST/SGOT) 106H, Alanine Aminotransferase (ALT/SGPT) 70, Alkaline Phosphatase 82, Troponin I 0.684H, Total Protein 6.7, Albumin 3.0L, Globulin 3.7 05/24/20 11:59: POC Whole Blood Glucose 270H Height (Feet): 5 Height (Inches): 6.00 Weight (Pounds): 202 General Appearance: no apparent distress, lethargic Cardiovascular: tachycardia Respiratory/Chest: decreased breath sounds Abdomen: distended Taran Spears MD May 24, 2020 14:39
[2020-05-24 16:00] VITALS: BP 128/80
[2020-05-24 20:00] VITALS: BP 121/71
--- NOTE | 2020-05-24 22:02 | General Progress Note ---
Subjective ROS Limited/Unobtainable: Yes Allergies: Coded Allergies: No Known Allergies (Unverified , 05/22/20) Objective Last 24 Hour Vital Signs Date Time Temp Pulse Resp B/P (MAP) Pulse Ox O2 Delivery O2 Flow Rate FiO2 05/24/20 21:50 110 132/78 05/24/20 20:00 102 05/24/20 16:00 97.8 107 18 128/80 (96) 97 05/24/20 16:00 112 05/24/20 14:24 127/61 05/24/20 12:08 98.1 108 19 127/61 (83) 98 05/24/20 12:00 106 05/24/20 08:35 116 05/24/20 08:29 118 128/73 05/24/20 08:10 Non-Rebreather 15.0 05/24/20 08:06 96.7 118 20 128/73 (91) 96 05/24/20 04:00 115 05/24/20 04:00 97.6 90 20 130/70 (90) 97 05/24/20 00:00 97.0 100 20 125/73 (90) 95 05/24/20 00:00 109 05/23/20 23:52 Non-Rebreather 15.0 Intake and Output 05/23/20 05/24/20 19:00 07:00 Intake Total 120 ml Output Total 2000 ml Balance 120 ml -2000 ml Intake Oral 120 ml Hemodialysis UF 2000 ml Laboratory Tests 05/24/20 06:55: White Blood Count 13.2#H, Red Blood Count 3.28L, Hemoglobin 10.5L, Hematocrit 28.7L, Mean Corpuscular Volume 87, Mean Corpuscular Hemoglobin 32.0H, Mean Corpuscular Hemoglobin Concent 36.5H, Red Cell Distribution Width 13.5, Platelet Count 250, Mean Platelet Volume 7.5, Neutrophils (%) (Auto) , Lymphocytes (%) (Auto) , Monocytes (%) (Auto) , Eosinophils (%) (Auto) , Basophils (%) (Auto) , Differential Total Cells Counted 100, Neutrophils % (Manual) 93H, Lymphocytes % (Manual) 5L, Monocytes % (Manual) 2, Eosinophils % (Manual) 0, Basophils % (Manual) 0, Band Neutrophils 0, Platelet Estimate Adequate, Platelet Morphology Normal, Hypochromasia 1+, Sodium Level 141#, Potassium Level 4.3, Chloride Level 96L, Carbon Dioxide Level 23, Blood Urea Nitrogen 97H, Creatinine 16.1H, Estimat Glomerular Filtration Rate 3.0, Glucose Level 284#H, Hemoglobin A1c 7.1H, Calcium Level 8.7, Phosphorus Level 8.4H, Magnesium Level 2.4, Total Bilirubin 0.7, Aspartate Amino Transf (AST/SGOT) 106H, Alanine Aminotransferase (ALT/SGPT) 70, Alkaline Phosphatase 82, Troponin I 0.684H, Total Protein 6.7, Albumin 3.0L, Globulin 3.7 05/24/20 11:59: POC Whole Blood Glucose 270H 05/24/20 17:22: POC Whole Blood Glucose 297H Height (Feet): 5 Height (Inches): 6.00 Weight (Pounds): 202 Assessment/Plan Problem List: (1) Anemia, chronic renal failure ICD Codes: N18.9 - Chronic kidney disease, unspecified; D63.1 - Anemia in chronic kidney disease SNOMED: 61025174, [id number] Qualifiers: Qualified Codes: N18.5 - Chronic kidney disease, stage 5; D63.1 - Anemia in chronic kidney disease (2) Hyperglycemia due to type 2 diabetes mellitus ICD Codes: E11.65 - Type 2 diabetes mellitus with hyperglycemia SNOMED: 839382851157682, [id number] Qualifiers: Qualified Codes: E11.65 - Type 2 diabetes mellitus with hyperglycemia (3) ESRD (end stage renal disease) on dialysis ICD Codes: N18.6 - End stage renal disease; Z99.2 - Dependence on renal dialysis SNOMED: 861736119 (4) Acute respiratory failure with hypoxia ICD Codes: J96.01 - Acute respiratory failure with hypoxia; J12.89 - Other viral pneumonia SNOMED: 86399563, 930883593 (5) Pneumonia due to COVID-19 virus ICD Codes: U07.1 - COVID-19; J12.89 - Other viral pneumonia SNOMED: 677854345888815769 Status: progressing Assessment/Plan: covid pneumonia afebril supportive care oxygen Estela Seals MD May 24, 2020 22:02
[2020-05-25] VITALS: BP 117/67
[2020-05-25 04:00] VITALS: BP 143/68
[2020-05-25] MEDS: NovoLOG Insulin Flexpen SUBQ SCH ×4 (06:26→21:30)
[2020-05-25 07:45] LABS: HEMATOCRIT 31.2 % (42.0-52.0); HEMOGLOBIN 10.5 G/DL (14.2-18.0); MEAN CORPUSCULAR VOLUME 95 FL (80-99); PLATELET COUNT 244 K/UL (150-450); RED CELL DISTRIBUTION WIDTH 12.9 % (11.6-14.8)
[2020-05-25 07:55] VITALS: BP 127/81
[2020-05-25] MEDS: Heparin 5000 units/ml inj SUBQ SCH ×2 (09:00→21:27)
[2020-05-25] MEDS: Docusate 100mg cap ORAL SCH ×3 (09:29→17:28)
[2020-05-25] MEDS: Aspirin Baby 81mg ORAL SCH (09:29)
[2020-05-25] MEDS: dexAMETHasone 10mg/ml Inj IV SCH (09:29)
[2020-05-25] MEDS: Levemir Flexpen SUBQ SCH ×2 (09:30→21:31)
[2020-05-25 09:37] LABS: ALBUMIN 2.9 G/DL (3.4-5.0); ALBUMIN/GLOBULIN RATIO 0.6 (1.0-2.7); BILIRUBIN,TOTAL 0.6 MG/DL (0.2-1.0); CALCIUM 9.7 MG/DL (8.5-10.1); CREATININE 18.9 MG/DL (0.55-1.30); PHOSPHORUS 10.2 MG/DL (2.5-4.9); POTASSIUM 4.7 MMOL/L (3.5-5.1)
--- NOTE | 2020-05-25 11:43 | Nephrology Progress Note ---
Assessment/Plan Problem List: (1) ESRD (end stage renal disease) on dialysis (2) Pneumonia due to COVID-19 virus (3) Acute respiratory failure with hypoxia (4) Hyperglycemia due to type 2 diabetes mellitus (5) Anemia, chronic renal failure (6) Pancreatitis, acute Assessment Patient is being admitted with COVID-19 pneumonia Has acute respiratory distress and hypoxia End-stage renal disease missed last 2 dialysis Anemia of chronic kidney disease Pancreatitis Hyperglycemia Plan May 25: Patient due for dialysis today. Labs reviewed. Medication list re viewed continue per consultants. Vitamin D level pending. May 24: Patient dialyzed yesterday. We will order dialysis tomorrow. Will adjust phosphate binders. Medication list and labs reviewed. Continue per consultants. Monitor lipase level and check vitamin D level Previously: Hemodialysis today Renal diet Protonix, Renvela Nitropaste, aspirin Sliding scale insulin, Starlix Per orders Per consultants Subjective ROS Limited/Unobtainable: No Constitutional: Reports: malaise, weakness Objective Objective Last 24 Hour Vital Signs Date Time Temp Pulse Resp B/P (MAP) Pulse Ox O2 Delivery O2 Flow Rate FiO2 05/25/20 08:00 99 05/25/20 07:55 98.7 101 19 127/81 (96) 95 05/25/20 07:32 Non-Rebreather 15.0 05/25/20 04:00 98.7 103 22 143/68 (93) 93 05/25/20 04:00 100 05/25/20 00:00 98.4 92 20 117/67 (84) 05/24/20 23:56 100 05/24/20 21:50 110 132/78 05/24/20 21:00 Non-Rebreather 15.0 05/24/20 20:00 102 05/24/20 20:00 97.9 101 20 121/71 (88) 94 05/24/20 16:00 97.8 107 18 128/80 (96) 97 05/24/20 16:00 112 05/24/20 14:24 127/61 05/24/20 12:08 98.1 108 19 127/61 (83) 98 05/24/20 12:00 106 Intake and Output 05/24/20 05/25/20 19:00 07:00 Intake Total 120 ml Output Total 1200 ml Balance -1080 ml Intake Oral 120 ml Output Urine Total 1200 ml # Voids 3 1 Laboratory Tests 05/24/20 11:59: POC Whole Blood Glucose 270H 05/24/20 17:22: POC Whole Blood Glucose 297H 05/24/20 21:53: POC Whole Blood Glucose [Pending] 05/25/20 06:01: White Blood Count 11.0H, Red Blood Count 3.30L, Hemoglobin 10.5L, Hematocrit 31.2L, Mean Corpuscular Volume 95#, Mean Corpuscular Hemoglobin 31.8H, Mean C orpuscular Hemoglobin Concent 33.6, Red Cell Distribution Width 12.9, Platelet Count 244, Mean Platelet Volume 7.1, Neutrophils (%) (Auto) , Lymphocytes (%) (Auto) , Monocytes (%) (Auto) , Eosinophils (%) (Auto) , Basophils (%) (Auto) , Differential Total Cells Counted 100, Neutrophils % (Manual) 88H, Lymphocytes % (Manual) 8L, Monocytes % (Manual) 4, Eosinophils % (Manual) 0, Basophils % (Manual) 0, Band Neutrophils 0, Nucleated Red Blood Cells 1, Platelet Estimate Adequate, Platelet Morphology Normal, Hypochromasia 1+, Sodium Level 143, Potassium Level 4.7, Chloride Level 96L, Carbon Dioxide Level 24, Anion Gap 23H, Blood Urea Nitrogen 145H, Creatinine 18.9H, Estimat Glomerular Filtration Rate 2.5, Glucose Level 324H, Calcium Level 9.7, Phosphorus Level 10.2H, Magnesium Level 3.0H, Total Bilirubin 0.6, Aspartate Amino Transf (AST/SGOT) 89H, Alanine Aminotransferase (ALT/SGPT) 71, Alkaline Phosphatase 99, Troponin I 0.401H, C- Reactive Protein, Quantitative 25.6H, Pro-B-Type Natriuretic Peptide 9023H, Total Protein 7.4, Albumin 2.9L, Globulin 4.5, Albumin/Globulin Ratio 0.6L, Lipase 947H, Vitamin D 25-Hydroxy [Pending], 25-Hydroxy Vitamin D2 [Pending], 25-Hydroxy Vitamin D3 [Pending] 05/25/20 06:17: POC Whole Blood Glucose [Pending] 05/25/20 11:22: POC Whole Blood Glucose 279H Height (Feet): 5 Height (Inches): 6.00 Weight (Pounds): 202 General Appearance: no apparent distress Cardiovascular: tachycardia Respiratory/Chest: decreased breath sounds Abdomen: distended Taran Spears MD May 25, 2020 11:43
--- NOTE | 2020-05-25 11:57 | Infectious Diseases Prog Note ---
Assessment/Plan Assessment/Plan IMPRESSION: Sepsis with tachycardia, tachypnea, and fever. COVID-19 pneumonia Hypoxemic respiratory failure, End-stage renal disease, on hemodialysis, Diabetes with hyperglycemia, Anemia, l Lymphocytopenia, Hypertension. Pancreatitis RECOMMENDATION: Continue with dexamethasone. Supportive care f/u lipase level Subjective ROS Limited/Unobtainable: Yes Constitutional: Denies: fever Allergies: Coded Allergies: No Known Allergies (Unverified , 05/22/20) Objective Last 24 Hour Vital Signs Date Time Temp Pulse Resp B/P (MAP) Pulse Ox O2 Delivery O2 Flow Rate FiO2 05/25/20 08:00 99 05/25/20 07:55 98.7 101 19 127/81 (96) 95 05/25/20 07:32 Non-Rebreather 15.0 05/25/20 04:00 98.7 103 22 143/68 (93) 93 05/25/20 04:00 100 05/25/20 00:00 98.4 92 20 117/67 (84) 05/24/20 23:56 100 05/24/20 21:50 110 132/78 05/24/20 21:00 Non-Rebreather 15.0 05/24/20 20:00 102 05/24/20 20:00 97.9 101 20 121/71 (88) 94 05/24/20 16:00 97.8 107 18 128/80 (96) 97 05/24/20 16:00 112 05/24/20 14:24 127/61 05/24/20 12:08 98.1 108 19 127/61 (83) 98 05/24/20 12:00 106 Height (Feet): 5 Height (Inches): 6.00 Weight (Pounds): 202 HEENT: mucous membranes moist Respiratory/Chest: other - oxygen by NRB mask Cardiovascular: tachycardia Abdomen: soft, non tender Extremities: no edema Neurologic/Psychiatric: alert Microbiology Date/Time Source Procedure Growth Status 05/23/20 02:40 Rectum VRE Culture - Final NO VANCOMYCIN RESISTANT ENTEROCOCCUS ... Complete 05/22/20 22:30 Nasopharynx SARS-CoV-2 RdRp Gene Assay - Final Complete 05/22/20 22:30 Blood Blood Culture - Preliminary NO GROWTH AFTER 24 HOURS Resulted 05/22/20 22:30 Blood Blood Culture - Preliminary NO GROWTH AFTER 24 HOURS Resulted Laboratory Tests Test 05/24/20 11:59 05/24/20 17:22 05/24/20 21:53 05/25/20 06:01 POC Whole Blood Glucose 270 MG/DL (74-106) H 297 MG/DL (74-106) H Pending White Blood Count 11.0 K/UL (4.8-10.8) H Red Blood Count 3.30 M/UL (4.70-6.10) L Hemoglobin 10.5 G/DL (14.2-18.0) L Hematocrit 31.2 % (42.0-52.0) L Mean Corpuscular Volume 95 FL (80-99) # Mean Corpuscular Hemoglobin 31.8 PG (27.0-31.0) H Mean Corpuscular Hemoglobin Concent 33.6 G/DL (32.0-36.0) Red Cell Distribution Width 12.9 % (11.6-14.8) Platelet Count 244 K/UL (150-450) Mean Platelet Volume 7.1 FL (6.5-10.1) Neutrophils (%) (Auto) % (45.0-75.0) Lymphocytes (%) (Auto) % (20.0-45.0) Monocytes (%) (Auto) % (1.0-10.0) Eosinophils (%) (Auto) % (0.0-3.0) Basophils (%) (Auto) % (0.0-2.0) Differential Total Cells Counted 100 Neutrophils % (Manual) 88 % (45-75) H Lymphocytes % (Manual) 8 % (20-45) L Monocytes % (Manual) 4 % (1-10) Eosinophils % (Manual) 0 % (0-3) Basophils % (Manual) 0 % (0-2) Band Neutrophils 0 % (0-8) Nucleated Red Blood Cells 1 /100 WBC Platelet Estimate Adequate Platelet Morphology Normal Hypochromasia 1+ Sodium Level 143 MMOL/L (136-145) Potassium Level 4.7 MMOL/L (3.5-5.1) Chloride Level 96 MMOL/L (98-107) L Carbon Dioxide Level 24 MMOL/L (21-32) Anion Gap 23 mmol/L (5-15) H Blood Urea Nitrogen 145 mg/dL (7-18) H Creatinine 18.9 MG/DL (0.55-1.30) H Estimat Glomerular Filtration Rate 2.5 mL/min (>60) Glucose Level 324 MG/DL (74-106) H Calcium Level 9.7 MG/DL (8.5-10.1) Phosphorus Level 10.2 MG/DL (2.5-4.9) H Magnesium Level 3.0 MG/DL (1.8-2.4) H Total Bilirubin 0.6 MG/DL (0.2-1.0) Aspartate Amino Transf (AST/SGOT) 89 U/L (15-37) H Alanine Aminotransferase (ALT/SGPT) 71 U/L (12-78) Alkaline Phosphatase 99 U/L (46-116) Troponin I 0.401 ng/mL (0.000-0.056) C-Reactive Protein, Quantitative 25.6 mg/dL (0.00-0.90) H Pro-B-Type Natriuretic Peptide 9023 pg/mL (0-125) H Total Protein 7.4 G/DL (6.4-8.2) Albumin 2.9 G/DL (3.4-5.0) L Globulin 4.5 g/dL Albumin/Globulin Ratio 0.6 (1.0-2.7) L Lipase 947 U/L (73-393) H Vitamin D 25-Hydroxy Pending 25-Hydroxy Vitamin D2 Pending 25-Hydroxy Vitamin D3 Pending Test 05/25/20 06:17 05/25/20 11:22 POC Whole Blood Glucose Pending 279 MG/DL (74-106) H Current Medications Medications (Trade) Dose Ordered Sig/Claude Route PRN Reason Start Time Stop Time Status Last Admin Dose Admin Acetaminophen (Tylenol) 500 mg Q4H PRN ORAL Mild Pain (Pain Scale 1-3) 05/23/20 23:45 06/22/20 23:44 Aspirin (ASA) 81 mg DAILY ORAL 05/23/20 15:00 07/07/20 14:59 05/25/20 09:29 Barium Sulfate (Varibar Honey) 250 ml NOW PRN RAD 05/23/20 14:45 05/26/20 14:37 Barium Sulfate (Varibar [place]) 240 ml NOW PRN RAD 05/23/20 14:45 05/26/20 14:37 Barium Sulfate (Varibar [place]ud[place]) 230 ml NOW PRN RAD 05/23/20 14:45 05/26/20 14:37 Barium Sulfate (Varibar Thin Liquid powder) 148 gm NOW PRN RAD 05/23/20 14:45 05/26/20 14:37 Dexamethasone Sodium Phosphate (Decadron 10mg/ ml Inj) 6 mg DAILY IV 05/24/20 09:00 08/22/20 08:59 05/25/20 09:29 Dextrose (Dextrose 50%) 25 ml Q30M PRN IV Hypoglycemia 05/24/20 00:15 08/22/20 00:14 Dextrose (Dextrose 50%) 50 ml Q30M PRN IV Hypoglycemia 05/24/20 00:15 08/22/20 00:14 Docusate Sodium (Colace) 100 mg THREE TIMES A DAY ORAL 05/23/20 18:00 06/22/20 17:59 05/25/20 09:29 Ergocalciferol (Drisdol) 50,000 intlu QWEEK ORAL 05/25/20 13:00 06/24/20 12:59 Heparin Sodium (Porcine) (Heparin 5000 units/ml) 5,000 units EVERY 12 HOURS SUBQ 05/23/20 21:00 07/07/20 20:59 05/24/20 21:55 Hydralazine HCl (Apresoline) 25 mg Q4H PRN ORAL BP over 160 systolic 05/23/20 14:23 08/21/20 14:22 Insulin Aspart (NovoLOG) BEFORE MEALS AND HS SUBQ 05/24/20 06:30 08/22/20 06:29 05/25/20 06:26 Insulin Detemir (Levemir) 10 units EVERY 12 HOURS SUBQ 05/24/20 09:00 08/22/20 09:00 05/25/20 09:30 Metoclopramide HCl (Reglan) 10 mg Q6H PRN IVP Nausea & Vomiting 05/23/20 14:24 06/22/20 14:23 Metoprolol Tartrate (Lopressor) 25 mg EVERY 12 HOURS ORAL 05/24/20 09:00 08/22/20 08:59 05/24/20 21:50 Nateglinide (Starlix) 120 mg TIAC ORAL 05/23/20 16:30 06/22/20 16:29 05/25/20 06:17 Nitroglycerin (Ntg) 1 patch Q24H TDERMAL 05/23/20 15:00 06/22/20 14:59 05/24/20 14:24 Pantoprazole (Protonix) 40 mg EVERY 12 HOURS ORAL 05/23/20 21:00 06/22/20 20:59 05/25/20 09:29 Pioglitazone HCl (Actos) 15 mg ACBREAKFAST ORAL 05/24/20 06:30 06/23/20 06:29 05/25/20 06:17 Sevelamer Carbonate (Renvela) 2,400 mg THREE TIMES A DAY ORAL 05/24/20 18:00 08/21/20 17:59 05/25/20 09:29 Kyaw Andrews MD May 25, 2020 11:56
[2020-05-25 12:00] VITALS: BP 129/61
--- NOTE | 2020-05-25 12:00 | Pulmonology Progress Note ---
Subjective ROS Limited/Unobtainable: Yes Interval Events: due for dialysis today HEENT: Repors: no symptoms Respiratory: Reports: no symptoms Cardiovascular: Reports: no symptoms Gastrointestinal/Abdominal: Reports: no symptoms Genitourinary: Reports: no symptoms Neurologic: Reports: no symptoms Allergies: Coded Allergies: No Known Allergies (Unverified , 05/22/20) Objective Last 24 Hour Vital Signs Date Time Temp Pulse Resp B/P (MAP) Pulse Ox O2 Delivery O2 Flow Rate FiO2 05/25/20 08:00 99 05/25/20 07:55 98.7 101 19 127/81 (96) 95 05/25/20 07:32 Non-Rebreather 15.0 05/25/20 04:00 98.7 103 22 143/68 (93) 93 05/25/20 04:00 100 05/25/20 00:00 98.4 92 20 117/67 (84) 05/24/20 23:56 100 05/24/20 21:50 110 132/78 05/24/20 21:00 Non-Rebreather 15.0 05/24/20 20:00 102 05/24/20 20:00 97.9 101 20 121/71 (88) 94 05/24/20 16:00 97.8 107 18 128/80 (96) 97 05/24/20 16:00 112 05/24/20 14:24 127/61 05/24/20 12:08 98.1 108 19 127/61 (83) 98 05/24/20 12:00 106 Intake and Output 05/24/20 05/25/20 19:00 07:00 Intake Total 120 ml Output Total 1200 ml Balance -1080 ml Intake Oral 120 ml Output Urine Total 1200 ml # Voids 3 1 Objective 05/25 saturating 88-93% on 15L NRB; pt appears agitated General Appearance: no acute distress HEENT: normocephalic Respiratory: chest wall non-tender, decreased breath sounds Cardiovascular: normal peripheral pulses, normal rate Abdomen: normal bowel sounds Microbiology Date/Time Source Procedure Growth Status 05/23/20 02:40 Rectum VRE Culture - Final NO VANCOMYCIN RESISTANT ENTEROCOCCUS ... Complete 05/22/20 22:30 Nasopharynx SARS-CoV-2 RdRp Gene Assay - Final Complete 05/22/20 22:30 Blood Blood Culture - Preliminary NO GROWTH AFTER 24 HOURS Resulted 05/22/20 22:30 Blood Blood Culture - Preliminary NO GROWTH AFTER 24 HOURS Resulted Laboratory Tests 05/24/20 11:59: POC Whole Blood Glucose 270H 05/24/20 17:22: POC Whole Blood Glucose 297H 05/24/20 21:53: POC Whole Blood Glucose [Pending] 05/25/20 06:01: White Blood Count 11.0H, Red Blood Count 3.30L, Hemoglobin 10.5L, Hematocrit 31.2L, Mean Corpuscular Volume 95#, Mean Corpuscular Hemoglobin 31.8H, Mean Corpuscular Hemoglobin Concent 33.6, Red Cell Distribution Width 12.9, Platelet Count 244, Mean Platelet Volume 7.1, Neutrophils (%) (Auto) , Lymphocytes (%) (Auto) , Monocytes (%) (Auto) , Eosinophils (%) (Auto) , Basophils (%) (Auto) , Differential Total Cells Counted 100, Neutrophils % (Manual) 88H, Lymphocytes % (Manual) 8L, Monocytes % (Manual) 4, Eosinophils % (Manual) 0, Basophils % (Manual) 0, Band Neutrophils 0, Nucleated Red Blood Cells 1, Platelet Estimate Adequate, Platelet Morphology Normal, Hypochromasia 1+, Sodium Level 143, Potassium Level 4.7, Chloride Level 96L, Carbon Dioxide Level 24, Anion Gap 23H, Blood Urea Nitrogen 145H, Creatinine 18.9H, Estimat Glomerular Filtration Rate 2.5, Glucose Level 324H, Calcium Level 9.7, Phosphorus Level 10.2H, Magnesium Level 3.0H, Total Bilirubin 0.6, Aspartate Amino Transf (AST/SGOT) 89H, Alanine Aminotransferase (ALT/SGPT) 71, Alkaline Phosphatase 99, Troponin I 0.401H, C- Reactive Protein, Quantitative 25.6H, Pro-B-Type Natriuretic Peptide 9023H, Total Protein 7.4, Albumin 2.9L, Globulin 4.5, Albumin/Globulin Ratio 0.6L, Lipase 947H, Vitamin D 25-Hydroxy [Pending], 25-Hydroxy Vitamin D2 [Pending], 25-Hydroxy Vitamin D3 [Pending] 05/25/20 06:17: POC Whole Blood Glucose [Pending] 05/25/20 11:22: POC Whole Blood Glucose 279H Current Medications Medications (Trade) Dose Ordered Sig/Claude Route PRN Reason Start Time Stop Time Status Last Admin Dose Admin Acetaminophen (Tylenol) 500 mg Q4H PRN ORAL Mild Pain (Pain Scale 1-3) 05/23/20 23:45 06/22/20 23:44 Aspirin (ASA) 81 mg DAILY ORAL 05/23/20 15:00 07/07/20 14:59 05/25/20 09:29 Barium Sulfate (Varibar Honey) 250 ml NOW PRN RAD 05/23/20 14:45 05/26/20 14:37 Barium Sulfate (Varibar [place]) 240 ml NOW PRN RAD 05/23/20 14:45 05/26/20 14:37 Barium Sulfate (Varibar Pudding) 230 ml NOW PRN RAD 05/23/20 14:45 05/26/20 14:37 Barium Sulfate (Varibar Thin Liquid powder) 148 gm NOW PRN RAD 05/23/20 14:45 05/26/20 14:37 Dexamethasone Sodium Phosphate (Decadron 10mg/ ml Inj) 6 mg DAILY IV 05/24/20 09:00 08/22/20 08:59 05/25/20 09:29 Dextrose (Dextrose 50%) 25 ml Q30M PRN IV Hypoglycemia 05/24/20 00:15 08/22/20 00:14 Dextrose (Dextrose 50%) 50 ml Q30M PRN IV Hypoglycemia 05/24/20 00:15 08/22/20 00:14 Docusate Sodium (Colace) 100 mg THREE TIMES A DAY ORAL 05/23/20 18:00 06/22/20 17:59 05/25/20 09:29 Ergocalciferol (Drisdol) 50,000 intlu QWEEK ORAL 05/25/20 13:00 06/24/20 12:59 Heparin Sodium (Porcine) (Heparin 5000 units/ml) 5,000 units EVERY 12 HOURS SUBQ 05/23/20 21:00 07/07/20 20:59 05/24/20 21:55 Hydralazine HCl (Apresoline) 25 mg Q4H PRN ORAL BP over 160 systolic 05/23/20 14:23 08/21/20 14:22 Insulin Aspart (NovoLOG) BEFORE MEALS AND HS SUBQ 05/24/20 06:30 08/22/20 06:29 05/25/20 06:26 Insulin Detemir (Levemir) 10 units EVERY 12 HOURS SUBQ 05/24/20 09:00 08/22/20 09:00 05/25/20 09:30 Metoclopramide HCl (Reglan) 10 mg Q6H PRN IVP Nausea & Vomiting 05/23/20 14:24 06/22/20 14:23 Metoprolol Tartrate (Lopressor) 25 mg EVERY 12 HOURS ORAL 05/24/20 09:00 08/22/20 08:59 05/24/20 21:50 Nateglinide (Starlix) 120 mg TIAC ORAL 05/23/20 16:30 06/22/20 16:29 05/25/20 06:17 Nitroglycerin (Ntg) 1 patch Q24H TDERMAL 05/23/20 15:00 06/22/20 14:59 05/24/20 14:24 Pantoprazole (Protonix) 40 mg EVERY 12 HOURS ORAL 05/23/20 21:00 06/22/20 20:59 05/25/20 09:29 Pioglitazone HCl (Actos) 15 mg ACBREAKFAST ORAL 05/24/20 06:30 06/23/20 06:29 05/25/20 06:17 Sevelamer Carbonate (Renvela) 2,400 mg THREE TIMES A DAY ORAL 05/24/20 18:00 08/21/20 17:59 05/25/20 09:29 Assessment/Plan Assessment/Plan 1. COVID pneumonia. - Continue Decadron - On broad-spectrum antibiotics. - currently saturating at 88-93% on 15L NRB - keep saO2 >92% 2. Pulmonary edema. 3. ESRD, on dialysis. 4. Hypertension. 5. Diabetes mellitus. - on glucose-lowering agents - monitor BGs 6. Elevated inflammatory markers. - DVT prophylaxis with Lovenox/subcu heparin. 7. Pancreatitis. - Keep NPO due to elevated lipase. We will follow carefully. The care for this patient was discussed with my supervising physician Time spent for this case was approximately 31 minutes Mario Gutierrez May 25, 2020 12:00
[2020-05-25] MEDS: cefTRIAXone 1 GM in D5W 55 ML IVPB SCH (12:28)
[2020-05-25] MEDS ORDERED: Vitamin D 50,000 units cap ORAL SCH (13:00)
--- NOTE | 2020-05-25 13:18 | Cardiac Electrophysiology PN ---
Assessment/Plan Assessment/Plan 1. Troponin elevation due to renal failure in this patient who is on hemodialysis. The EKG shows sinus rhythm at a rate of [address]-T wave abnormalities. The patient is already on aspirin and metoprolol 25 bid 2. Hypertension. On Lopressor, HD and prn hydralazine 3. End-stage renal disease, on hemodialysis. 4. Diabetes, on insulin. Blood glucose is not controlled, in the 400. 5. COVID pneumonia, on dexamethasone. Subjective Subjective Alert in NAD in covid isolation. HD pending today on 15 liter NRB FM Objective Last 24 Hour Vital Signs Date Time Temp Pulse Resp B/P (MAP) Pulse Ox O2 Delivery O2 Flow Rate FiO2 05/25/20 12:00 104 05/25/20 08:00 99 05/25/20 07:55 98.7 101 19 127/81 (96) 95 05/25/20 07:32 Non-Rebreather 15.0 05/25/20 04:00 98.7 103 22 143/68 (93) 93 05/25/20 04:00 100 05/25/20 00:00 98.4 92 20 117/67 (84) 05/24/20 23:56 100 05/24/20 21:50 110 132/78 05/24/20 21:00 Non-Rebreather 15.0 05/24/20 20:00 102 05/24/20 20:00 97.9 101 20 121/71 (88) 94 05/24/20 16:00 97.8 107 18 128/80 (96) 97 05/24/20 16:00 112 05/24/20 14:24 127/61 Intake and Output 05/24/20 05/25/20 19:00 07:00 Intake Total 120 ml Output Total 1200 ml Balance -1080 ml Intake Oral 120 ml Output Urine Total 1200 ml # Voids 3 1 Laboratory Tests Test 05/24/20 17:22 05/24/20 21:53 05/25/20 06:01 05/25/20 06:17 POC Whole Blood Glucose 297 MG/DL (74-106) H Pending Pending White Blood Count 11.0 K/UL (4.8-10.8) H Red Blood Count 3.30 M/UL (4.70-6.10) L Hemoglobin 10.5 G/DL (14.2-18.0) L Hematocrit 31.2 % (42.0-52.0) L Mean Corpuscular Volume 95 FL (80-99) # Mean Corpuscular Hemoglobin 31.8 PG (27.0-31.0) H Mean Corpuscular Hemoglobin Concent 33.6 G/DL (32.0-36.0) Red Cell Distribution Width 12.9 % (11.6-14.8) Platelet Count 244 K/UL (150-450) Mean Platelet Volume 7.1 FL (6.5-10.1) Neutrophils (%) (Auto) % (45.0-75.0) Lymphocytes (%) (Auto) % (20.0-45.0) Monocytes (%) (Auto) % (1.0-10.0) Eosinophils (%) (Auto) % (0.0-3.0) Basophils (%) (Auto) % (0.0-2.0) Differential Total Cells Counted 100 Neutrophils % (Manual) 88 % (45-75) H Lymphocytes % (Manual) 8 % (20-45) L Monocytes % (Manual) 4 % (1-10) Eosinophils % (Manual) 0 % (0-3) Basophils % (Manual) 0 % (0-2) Band Neutrophils 0 % (0-8) Nucleated Red Blood Cells 1 /100 WBC Platelet Estimate Adequate Platelet Morphology Normal Hypochromasia 1+ Sodium Level 143 MMOL/L (136-145) Potassium Level 4.7 MMOL/L (3.5-5.1) Chloride Level 96 MMOL/L (98-107) L Carbon Dioxide Level 24 MMOL/L (21-32) Anion Gap 23 mmol/L (5-15) H Blood Urea Nitrogen 145 mg/dL (7-18) H Creatinine 18.9 MG/DL (0.55-1.30) H Estimat Glomerular Filtration Rate 2.5 mL/min (>60) Glucose Level 324 MG/DL (74-106) H Calcium Level 9.7 MG/DL (8.5-10.1) Phosphorus Level 10.2 MG/DL (2.5-4.9) H Magnesium Level 3.0 MG/DL (1.8-2.4) H Total Bilirubin 0.6 MG/DL (0.2-1.0) Aspartate Amino Transf (AST/SGOT) 89 U/L (15-37) H Alanine Aminotransferase (ALT/SGPT) 71 U/L (12-78) Alkaline Phosphatase 99 U/L (46-116) Troponin I 0.401 ng/mL (0.000-0.056) C-Reactive Protein, Quantitative 25.6 mg/dL (0.00-0.90) H Pro-B-Type Natriuretic Peptide 9023 pg/mL (0-125) H Total Protein 7.4 G/DL (6.4-8.2) Albumin 2.9 G/DL (3.4-5.0) L Globulin 4.5 g/dL Albumin/Globulin Ratio 0.6 (1.0-2.7) L Lipase 947 U/L (73-393) H Vitamin D 25-Hydroxy Pending 25-Hydroxy Vitamin D2 Pending 25-Hydroxy Vitamin D3 Pending Test 05/25/20 11:22 POC Whole Blood Glucose 279 MG/DL (74-106) H Microbiology Date/Time Source Procedure Growth Status 05/23/20 02:40 Rectum VRE Culture - Final NO VANCOMYCIN RESISTANT ENTEROCOCCUS ... Complete 05/22/20 22:30 Nasopharynx SARS-CoV-2 RdRp Gene Assay - Final Complete 05/22/20 22:30 Blood Blood Culture - Preliminary NO GROWTH AFTER 24 HOURS Resulted 05/22/20 22:30 Blood Blood Culture - Preliminary NO GROWTH AFTER 24 HOURS Resulted Objective HEAD AND NECK: No JVD. LUNGS: Coarse rhonchi. CARDIOVASCULAR: Regular S1 and S2 with no gallop. ABDOMEN: Soft. EXTREMITIES: No pitting edema. Rhett Nayak MD May 25, 2020 13:18
[2020-05-25] MEDS: Nitroglycerin Patch 0.4mg TDERMAL SCH (14:31)
[2020-05-25 16:00] VITALS: BP 131/71
[2020-05-25 20:00] VITALS: BP 124/65
--- NOTE | 2020-05-25 21:23 | General Progress Note ---
Subjective ROS Limited/Unobtainable: Yes Allergies: Coded Allergies: No Known Allergies (Unverified , 05/22/20) Objective Last 24 Hour Vital Signs Date Time Temp Pulse Resp B/P (MAP) Pulse Ox O2 Delivery O2 Flow Rate FiO2 05/25/20 16:00 80 05/25/20 16:00 98.4 100 20 131/71 (91) 95 05/25/20 14:31 129/61 05/25/20 12:00 98.6 101 20 129/61 (83) 95 05/25/20 12:00 104 05/25/20 08:00 99 05/25/20 07:55 98.7 101 19 127/81 (96) 95 05/25/20 07:32 Non-Rebreather 15.0 05/25/20 04:00 98.7 103 22 143/68 (93) 93 05/25/20 04:00 100 05/25/20 00:00 98.4 92 20 117/67 (84) 05/24/20 23:56 100 05/24/20 21:50 110 132/78 Intake and Output 05/24/20 05/25/20 19:00 07:00 Intake Total 120 ml Output Total 1200 ml Balance -1080 ml Intake Oral 120 ml Output Urine Total 1200 ml # Voids 3 1 Laboratory Tests 05/24/20 21:53: POC Whole Blood Glucose [Pending] 05/25/20 06:01: White Blood Count 11.0H, Red Blood Count 3.30L, Hemoglobin 10.5L, Hematocrit 31.2L, Mean Corpuscular Volume 95#, Mean Corpuscular Hemoglobin 31.8H, Mean Liz[place] uscular Hemoglobin Concent 33.6, Red Cell Distribution Width 12.9, Platelet Count 244, Mean Platelet Volume 7.1, Neutrophils (%) (Auto) , Lymphocytes (%) (Auto) , Monocytes (%) (Auto) , Eosinophils (%) (Auto) , Basophils (%) (Auto) , Differential Total Cells Counted 100, Neutrophils % (Manual) 88H, Lymphocytes % (Manual) 8L, Monocytes % (Manual) 4, Eosinophils % (Manual) 0, Basophils % (Manual) 0, Band Neutrophils 0, Nucleated Red Blood Cells 1, Platelet Estimate Adequate, Platelet Morphology Normal, Hypochromasia 1+, Sodium Level 143, Potassium Level 4.7, Chloride Level 96L, Carbon Dioxide Level 24, Anion Gap 23H, Blood Urea Nitrogen 145H, Creatinine 18.9H, Estimat Glomerular Filtration Rate 2.5, Glucose Level 324H, Calcium Level 9.7, Phosphorus Level 10.2H, Magnesium Level 3.0H, Total Bilirubin 0.6, Aspartate Amino Transf (AST/SGOT) 89H, Alanine Aminotransferase (ALT/SGPT) 71, Alkaline Phosphatase 99, Troponin I 0.401H, C- Reactive Protein, Quantitative 25.6H, Pro-B-Type Natriuretic Peptide 9023H, Total Protein 7.4, Albumin 2.9L, Globulin 4.5, Albumin/Globulin Ratio 0.6L, Lipase 947H, Vitamin D 25-Hydroxy [Pending], 25-Hydroxy Vitamin D2 [Pending], 25-Hydroxy Vitamin D3 [Pending] 05/25/20 06:17: POC Whole Blood Glucose [Pending] 05/25/20 11:22: POC Whole Blood Glucose 279H 05/25/20 16:26: POC Whole Blood Glucose 314H 05/25/20 17:01: Arterial Blood pH 7.518H, Arterial Blood Partial Pressure CO2 34.4L, Arterial Blood Partial Pressure O2 59.8L, Arterial Blood HCO3 27.3H, Arterial Blood Oxygen Saturation 89.3*L, Arterial Blood Base Excess 4.5H, Micheal Test Positive 05/25/20 20:15: POC Whole Blood Glucose 251H Height (Feet): 5 Height (Inches): 6.00 Weight (Pounds): 202 Assessment/Plan Problem List: (1) Anemia, chronic renal failure ICD Codes: N18.9 - Chronic kidney disease, unspecified; D63.1 - Anemia in chronic kidney disease SNOMED: 57142677, [id number] Qualifiers: Qualified Codes: N18.5 - Chronic kidney disease, stage 5; D63.1 - Anemia in chronic kidney disease (2) Hyperglycemia due to type 2 diabetes mellitus ICD Codes: E11.65 - Type 2 diabetes mellitus with hyperglycemia SNOMED: 139835767424491, [id number] Qualifiers: Qualified Codes: E11.65 - Type 2 diabetes mellitus with hyperglycemia (3) ESRD (end stage renal disease) on dialysis ICD Codes: N18.6 - End stage renal disease; Z99.2 - Dependence on renal dialysis SNOMED: 287212260 (4) Acute respiratory failure with hypoxia ICD Codes: J96.01 - Acute respiratory failure with hypoxia; J12.89 - Other viral pneumonia SNOMED: 88418651, [id number] (5) Pneumonia due to COVID-19 virus ICD Codes: U07.1 - COVID-19; J12.89 - Other viral pneumonia SNOMED: [id number] Status: progressing Assessment/Plan: covid pneumonia resp insuff no wheezing afebrile supportive care oxygen prn Estela Seals MD May 25, 2020 21:22
--- NOTE | 2020-05-25 23:03 | Psychiatry Consultation ---
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 Has waxing and waning consciousness. Not able to be engaged. Has episodes of agitation. Patient attempts to pull out lines and her oxygen mask. PAST PSYCHIATRIC HISTORY: Dementia. PAST MEDICAL HISTORY: Significant for pneumonia, renal insufficiency. ALLERGIES: No known drug allergies. SUBSTANCE ABUSE HISTORY: No known history of illicit drug use or alcohol. MENTAL STATUS EXAMINATION: Patient is having waxing and waning consciousness. Mood is anxious. Affect is blunted, congruent with mood. Thought process is concrete. Thought content, no suicidal or homicidal ideation. Cognition is impaired. Insight and judgment is impaired. ASSESSMENT: [place] I Acute metabolic encephalopathy. Dementia. [place] II Deferred. [place] III As above. [place] IV Low. [place] V 20. PLAN: 1. We will start patient on Haldol p.r.n. 2. Bilateral soft restraints. Allergies: Coded Allergies: No Known Allergies (Unverified , 05/22/20) Objective Data Height (Feet): 5 Height (Inches): 6.00 Weight (Pounds): 202 Mel Clarke MD May 25, 2020 23:03
[2020-05-26] VITALS: BP 132/67
[2020-05-26 04:00] VITALS: BP 140/70
[2020-05-26 04:20] LABS: HEMATOCRIT 29.2 % (42.0-52.0); HEMOGLOBIN 10.5 G/DL (14.2-18.0); MEAN CORPUSCULAR VOLUME 91 FL (80-99); PLATELET COUNT 232 K/UL (150-450); RED BLOOD COUNT 3.21 M/UL (4.70-6.10); WHITE BLOOD COUNT 13.4 K/UL (4.8-10.8)
[2020-05-26 04:39] LABS: ALBUMIN 2.6 G/DL (3.4-5.0); ALBUMIN/GLOBULIN RATIO 0.6 (1.0-2.7); BILIRUBIN,TOTAL 0.7 MG/DL (0.2-1.0); CALCIUM 9.4 MG/DL (8.5-10.1); CREATININE 11.7 MG/DL (0.55-1.30); PHOSPHORUS 8.8 MG/DL (2.5-4.9); POTASSIUM 4.4 MMOL/L (3.5-5.1)
[2020-05-26] MEDS: NovoLOG Insulin Flexpen SUBQ SCH ×4 (05:25→20:52)
[2020-05-26 08:00] VITALS: BP 140/74
[2020-05-26] MEDS: Docusate 100mg cap ORAL SCH ×3 (09:35→17:34)
[2020-05-26] MEDS: dexAMETHasone 10mg/ml Inj IV SCH (09:36)
[2020-05-26] MEDS: Aspirin Baby 81mg ORAL SCH (09:36)
[2020-05-26] MEDS: Heparin 5000 units/ml inj SUBQ SCH ×2 (09:37→20:50)
[2020-05-26] MEDS: Levemir Flexpen SUBQ SCH ×2 (09:38→20:51)
--- NOTE | 2020-05-26 10:01 | Infectious Diseases Prog Note ---
Assessment/Plan Assessment/Plan IMPRESSION: Sepsis with tachycardia, tachypnea, and fever. COVID-19 pneumonia Hypoxemic respiratory failure, End-stage renal disease, on hemodialysis, Diabetes with hyperglycemia, Anemia, l Lymphocytopenia, Hypertension. Pancreatitis RECOMMENDATION: Continue with dexamethasone. Continue Rocephin Subjective ROS Limited/Unobtainable: Yes Constitutional: Denies: fever Neurologic: Reports: confusion, other - on restraint Allergies: Coded Allergies: No Known Allergies (Unverified , 05/22/20) Objective Last 24 Hour Vital Signs Date Time Temp Pulse Resp B/P (MAP) Pulse Ox O2 Delivery O2 Flow Rate FiO2 05/26/20 09:36 92 140/74 05/26/20 08:00 97.7 92 20 140/74 (96) 94 05/26/20 04:00 87 05/26/20 04:00 98.8 102 20 140/70 (93) 93 05/26/20 00:00 98.5 111 20 132/67 (88) 92 05/26/20 00:00 108 05/25/20 21:28 103 124/65 05/25/20 21:00 Non-Rebreather 15.0 05/25/20 20:00 84 05/25/20 20:00 98.1 103 22 124/65 (84) 90 05/25/20 16:00 80 05/25/20 16:00 98.4 100 20 131/71 (91) 95 05/25/20 14:31 129/61 05/25/20 12:00 98.6 101 20 129/61 (83) 95 05/25/20 12:00 104 Height (Feet): 5 Height (Inches): 6.00 Weight (Pounds): 202 HEENT: mucous membranes moist Respiratory/Chest: other - Oxygen by NRB mask Cardiovascular: normal rate Abdomen: soft, non tender Extremities: no edema Neurologic/Psychiatric: other - sleeping Laboratory Tests Test 05/25/20 11:22 05/25/20 16:26 05/25/20 17:01 05/25/20 20:15 POC Whole Blood Glucose 279 MG/DL (74-106) H 314 MG/DL (74-106) H 251 MG/DL (74-106) H Arterial Blood pH 7.518 (7.350-7.450) Arterial Blood Partial Pressure CO2 34.4 mmHg (35.0-45.0) L Arterial Blood Partial Pressure O2 59.8 mmHg (75.0-100.0) L Arterial Blood HCO3 27.3 mmol/L (22.0-26.0) H Arterial Blood Oxygen Saturation 89.3 % (95-100) *L Arterial Blood Base Excess 4.5 (-2-2) H Micheal Test Positive Test 05/26/20 04:00 05/26/20 05:07 White Blood Count 13.4 K/UL (4.8-10.8) H Red Blood Count 3.21 M/UL (4.70-6.10) L Hemoglobin 10.5 G/DL (14.2-18.0) L Hematocrit 29.2 % (42.0-52.0) L Mean Corpuscular Volume 91 FL (80-99) Mean Corpuscular Hemoglobin 32.6 PG (27.0-31.0) H Mean Corpuscular Hemoglobin Concent 35.9 G/DL (32.0-36.0) Red Cell Distribution Width 13.0 % (11.6-14.8) Platelet Count 232 K/UL (150-450) Mean Platelet Volume 6.8 FL (6.5-10.1) Neutrophils (%) (Auto) % (45.0-75.0) Lymphocytes (%) (Auto) % (20.0-45.0) Monocytes (%) (Auto) % (1.0-10.0) Eosinophils (%) (Auto) % (0.0-3.0) Basophils (%) (Auto) % (0.0-2.0) Sodium Level 143 MMOL/L (136-145) Potassium Level 4.4 MMOL/L (3.5-5.1) Chloride Level 100 MMOL/L (98-107) Carbon Dioxide Level 29 MMOL/L (21-32) Anion Gap 14 mmol/L (5-15) Blood Urea Nitrogen 90 mg/dL (7-18) H Creatinine 11.7 MG/DL (0.55-1.30) H Estimat Glomerular Filtration Rate 4.4 mL/min (>60) Glucose Level 278 MG/DL (74-106) H Calcium Level 9.4 MG/DL (8.5-10.1) Phosphorus Level 8.8 MG/DL (2.5-4.9) H Magnesium Level 2.7 MG/DL (1.8-2.4) H Total Bilirubin 0.7 MG/DL (0.2-1.0) Aspartate Amino Transf (AST/SGOT) 74 U/L (15-37) H Alanine Aminotransferase (ALT/SGPT) 58 U/L (12-78) Alkaline Phosphatase 107 U/L (46-116) C-Reactive Protein, Quantitative 24.9 mg/dL (0.00-0.90) H Total Protein 7.1 G/DL (6.4-8.2) Albumin 2.6 G/DL (3.4-5.0) L Globulin 4.5 g/dL Albumin/Globulin Ratio 0.6 (1.0-2.7) L POC Whole Blood Glucose 303 MG/DL (74-106) H Current Medications Medications (Trade) Dose Ordered Sig/Claude Route PRN Reason Start Time Stop Time Status Last Admin Dose Admin Acetaminophen (Tylenol) 500 mg Q4H PRN ORAL Mild Pain (Pain Scale 1-3) 05/23/20 23:45 06/22/20 23:44 Aspirin (ASA) 81 mg DAILY ORAL 05/23/20 15:00 07/07/20 14:59 05/26/20 09:36 Barium Sulfate (Varibar Honey) 250 ml NOW PRN RAD 05/23/20 14:45 05/26/20 14:37 Barium Sulfate (Varibar Orchid) 240 ml NOW PRN RAD 05/23/20 14:45 05/26/20 14:37 Barium Sulfate (Varibar Pudding) 230 ml NOW PRN RAD 05/23/20 14:45 05/26/20 14:37 Barium Sulfate (Varibar Thin Liquid powder) 148 gm NOW PRN RAD 05/23/20 14:45 05/26/20 14:37 Ceftriaxone Sodium 1 gm/ Dextrose 55 ml @ 110 mls/hr Q24H IVPB 05/25/20 12:00 06/01/20 11:59 05/25/20 12:28 Dexamethasone Sodium Phosphate (Decadron 10mg/ ml Inj) 6 mg DAILY IV 05/24/20 09:00 06/03/20 08:59 05/26/20 09:36 Dextrose (Dextrose 50%) 25 ml Q30M PRN IV Hypoglycemia 05/24/20 00:15 08/22/20 00:14 Dextrose (Dextrose 50%) 50 ml Q30M PRN IV Hypoglycemia 05/24/20 00:15 08/22/20 00:14 Docusate Sodium (Colace) 100 mg THREE TIMES A DAY ORAL 05/23/20 18:00 06/22/20 17:59 05/26/20 09:35 Ergocalciferol (Drisdol) 50,000 intlu QWEEK ORAL 05/25/20 13:00 06/24/20 12:59 05/25/20 13:19 Heparin Sodium (Porcine) (Heparin 5000 units/ml) 5,000 units EVERY 12 HOURS SUBQ 05/23/20 21:00 07/07/20 20:59 05/26/20 09:37 Hydralazine HCl (Apresoline) 25 mg Q4H PRN ORAL BP over 160 systolic 05/23/20 14:23 08/21/20 14:22 Insulin Aspart (NovoLOG) BEFORE MEALS AND HS SUBQ 05/24/20 06:30 08/22/20 06:29 05/26/20 05:25 Insulin Detemir (Levemir) 10 units EVERY 12 HOURS SUBQ 05/24/20 09:00 08/22/20 09:00 05/26/20 09:38 Metoclopramide HCl (Reglan) 10 mg Q6H PRN IVP Nausea & Vomiting 05/23/20 14:24 06/22/20 14:23 Metoprolol Tartrate (Lopressor) 25 mg EVERY 12 HOURS ORAL 05/24/20 09:00 08/22/20 08:59 05/26/20 09:36 Nateglinide (Starlix) 120 mg TIAC ORAL 05/23/20 16:30 06/22/20 16:29 05/26/20 05:24 Nitroglycerin (Ntg) 1 patch Q24H TDERMAL 05/23/20 15:00 06/22/20 14:59 05/25/20 14:31 Pantoprazole (Protonix) 40 mg EVERY 12 HOURS ORAL 05/23/20 21:00 06/22/20 20:59 05/26/20 09:36 Pioglitazone HCl (Actos) 15 mg ACBREAKFAST ORAL 05/24/20 06:30 06/23/20 06:29 05/26/20 05:24 Quetiapine Fumarate (SEROqueL) 25 mg BEDTIME ORAL 05/26/20 21:00 07/10/20 20:59 Sevelamer Carbonate (Renvela) 2,400 mg THREE TIMES A DAY ORAL 05/24/20 18:00 08/21/20 17:59 05/26/20 09:36 Kyaw Andrews MD May 26, 2020 10:01
--- NOTE | 2020-05-26 10:20 | Nephrology Progress Note ---
Assessment/Plan Problem List: (1) ESRD (end stage renal disease) on dialysis (2) Pneumonia due to COVID-19 virus (3) Acute respiratory failure with hypoxia (4) Hyperglycemia due to type 2 diabetes mellitus (5) Anemia, chronic renal failure (6) Pancreatitis, acute Assessment Patient is being admitted with COVID-19 pneumonia Has acute respiratory distress and hypoxia End-stage renal disease missed last 2 dialysis Anemia of chronic kidney disease Pancreatitis Hyperglycemia Plan May 26: Labs reviewed. Dialyzed yesterday. Due for dialysis tomorrow. Continue per consultants May 25: Patient due for dialysis today. Labs reviewed. Medication list reviewed continue per consultants. Vitamin D level pending. May 24: Patient dialyzed yesterday. We will order dialysis tomorrow. Will adjust phosphate binders. Medication list and labs reviewed. Continue per consultants. Monitor lipase level and check vitamin D level Previously: Hemodialysis today Renal diet Protonix, Renvela Nitropaste, aspirin Sliding scale insulin, Starlix Per orders Per consultants Subjective ROS Limited/Unobtainable: No Constitutional: Reports: malaise Objective Objective Last 24 Hour Vital Signs Date Time Temp Pulse Resp B/P (MAP) Pulse Ox O2 Delivery O2 Flow Rate FiO2 05/26/20 09:36 92 140/74 05/26/20 08:00 97.7 92 20 140/74 (96) 94 05/26/20 04:00 87 05/26/20 04:00 98.8 102 20 140/70 (93) 93 05/26/20 00:00 98.5 111 20 132/67 (88) 92 05/26/20 00:00 108 05/25/20 21:28 103 124/65 05/25/20 21:00 Non-Rebreather 15.0 05/25/20 20:00 84 05/25/20 20:00 98.1 103 22 124/65 (84) 90 05/25/20 16:00 80 05/25/20 16:00 98.4 100 20 131/71 (91) 95 05/25/20 14:31 129/61 05/25/20 12:00 98.6 101 20 129/61 (83) 95 05/25/20 12:00 104 Intake and Output 05/25/20 05/26/20 19:00 07:00 Intake Total 120 ml 240 ml Output Total 3200 ml 0 ml Balance -3080 ml 240 ml Intake Oral 120 ml 240 ml Output Urine Total 1200 ml 0 ml Hemodialysis UF 2000 ml # Voids 3 Laboratory Tests 05/25/20 11:22: POC Whole Blood Glucose 279H 05/25/20 16:26: POC Whole Blood Glucose 314H 05/25/20 17:01: Arterial Blood pH 7.518H, Arterial Blood Partial Pressure CO2 34.4L, Arterial Blood Partial Pressure O2 59.8L, Arterial Blood HCO3 27.3H, Arterial Blood Oxygen Saturation 89.3*L, Arterial Blood Base Excess 4.5H, Micheal Test Positive 05/25/20 20:15: POC Whole Blood Glucose 251H 05/26/20 04:00: White Blood Count 13.4H, Red Blood Count 3.21L, Hemoglobin 10.5L, Hematocrit 29.2L, Mean Corpuscular Volume 91, Mean Corpuscular Hemoglobin 32.6H, Mean Corpuscular Hemoglobin Concent 35.9, Red Cell Distribution Width 13.0, Platelet Count 232, Mean Platelet Volume 6.8, Neutrophils (%) (Auto) , Lymphocytes (%) (Auto) , Monocytes (%) (Auto) , Eosinophils (%) (Auto) , Basophils (%) (Auto) , Sodium Level 143, Potassium Level 4.4, Chloride Level 100, Carbon Dioxide Level 29, Anion Gap 14, Blood Urea Nitrogen 90H, Creatinine 11.7H, Estimat Glomerular Filtration Rate 4.4, Glucose Level 278H, Calcium Level 9.4, Phosphorus Level 8.8H, Magnesium Level 2.7H, Total Bilirubin 0.7, Aspartate Amino Transf (AST/SGOT) 74H, Alanine Aminotransferase (ALT/SGPT) 58, Alkaline Phosphatase 107, C-Reactive Protein, Quantitative 24.9H, Total Protein 7.1, Albumin 2.6L, Globulin 4.5, Albumin/Globulin Ratio 0.6L 05/26/20 05:07: POC Whole Blood Glucose 303H Height (Feet): 5 Height (Inches): 6.00 Weight (Pounds): 202 General Appearance: no apparent distress Cardiovascular: tachycardia Respiratory/Chest: decreased breath sounds Abdomen: distended Taran Spears MD May 26, 2020 10:20
--- NOTE | 2020-05-26 11:27 | Pulmonology Progress Note ---
Subjective ROS Limited/Unobtainable: Yes Interval Events: s/p HD yesterday, due for dialysis tomorrow Constitutional: Denies: fever HEENT: Repors: no symptoms Respiratory: Reports: no symptoms Cardiovascular: Reports: no symptoms Gastrointestinal/Abdominal: Reports: no symptoms Genitourinary: Reports: no symptoms Neurologic: Reports: no symptoms Allergies: Coded Allergies: No Known Allergies (Unverified , 05/22/20) Objective Last 24 Hour Vital Signs Date Time Temp Pulse Resp B/P (MAP) Pulse Ox O2 Delivery O2 Flow Rate FiO2 05/26/20 09:36 92 140/74 05/26/20 09:00 Non-Rebreather 15.0 05/26/20 08:00 85 05/26/20 08:00 97.7 92 20 140/74 (96) 94 05/26/20 04:00 87 05/26/20 04:00 98.8 102 20 140/70 (93) 93 05/26/20 00:00 98.5 111 20 132/67 (88) 92 05/26/20 00:00 108 05/25/20 21:28 103 124/65 05/25/20 21:00 Non-Rebreather 15.0 05/25/20 20:00 84 05/25/20 20:00 98.1 103 22 124/65 (84) 90 05/25/20 16:00 80 05/25/20 16:00 98.4 100 20 131/71 (91) 95 05/25/20 14:31 129/61 05/25/20 12:00 98.6 101 20 129/61 (83) 95 05/25/20 12:00 104 Intake and Output 05/25/20 05/26/20 19:00 07:00 Intake Total 120 ml 240 ml Output Total 3200 ml 0 ml Balance -3080 ml 240 ml Intake Oral 120 ml 240 ml Output Urine Total 1200 ml 0 ml Hemodialysis UF 2000 ml # Voids 3 Objective 05/26 saturating 93-94% on 15L NRB; pt appears less agitated today 05/25 saturating 88-93% on 15L NRB; pt appears agitated General Appearance: no acute distress HEENT: normocephalic Respiratory: chest wall non-tender, decreased breath sounds Cardiovascular: normal peripheral pulses, normal rate Abdomen: normal bowel sounds Laboratory Tests 05/25/20 16:26: POC Whole Blood Glucose 314H 05/25/20 17:01: Arterial Blood pH 7.518H, Arterial Blood Partial Pressure CO2 34.4L, Arterial Blood Partial Pressure O2 59.8L, Arterial Blood HCO3 27.3H, Arterial Blood Oxygen Saturation 89.3*L, Arterial Blood Base Excess 4.5H, Micheal Test Positive 05/25/20 20:15: POC Whole Blood Glucose 251H 05/26/20 04:00: White Blood Count 13.4H, Red Blood Count 3.21L, Hemoglobin 10.5L, Hematocrit 29.2L, Mean Corpuscular Volume 91, Mean Corpuscular Hemoglobin 32.6H, Mean Corpuscular Hemoglobin Concent 35.9, Red Cell Distribution Width 13.0, Platelet Count 232, Mean Platelet Volume 6.8, Neutrophils (%) (Auto) , Lymphocytes (%) (Auto) , Monocytes (%) (Auto) , Eosinophils (%) (Auto) , Basophils (%) (Auto) , Sodium Level 143, Potassium Level 4.4, Chloride Level 100, Carbon Dioxide Level 29, Anion Gap 14, Blood Urea Nitrogen 90H, Creatinine 11.7H, Estimat Glomerular Filtration Rate 4.4, Glucose Level 278H, Calcium Level 9.4, Phosphorus Level 8.8H, Magnesium Level 2.7H, Total Bilirubin 0.7, Aspartate Amino Transf (AST/SGOT) 74H, Alanine Aminotransferase (ALT/SGPT) 58, Alkaline Phosphatase 107, C-Reactive Protein, Quantitative 24.9H, Total Protein 7.1, Albumin 2.6L, Globulin 4.5, Albumin/Globulin Ratio 0.6L 05/26/20 05:07: POC Whole Blood Glucose 303H Current Medications Medications (Trade) Dose Ordered Sig/Claude Route PRN Reason Start Time Stop Time Status Last Admin Dose Admin Acetaminophen (Tylenol) 500 mg Q4H PRN ORAL Mild Pain (Pain Scale 1-3) 05/23/20 23:45 06/22/20 23:44 Aspirin (ASA) 81 mg DAILY ORAL 05/23/20 15:00 07/07/20 14:59 05/26/20 09:36 Barium Sulfate (Varibar Honey) 250 ml NOW PRN MC RAD 05/23/20 14:45 05/26/20 14:37 Barium Sulfate (Varibar Wagoner) 240 ml NOW PRN MC RAD 05/23/20 14:45 05/26/20 14:37 Barium Sulfate (Varibar Pudding) 230 ml NOW PRN RAD 05/23/20 14:45 05/26/20 14:37 Barium Sulfate (Varibar Thin Liquid powder) 148 gm NOW PRN RAD 05/23/20 14:45 05/26/20 14:37 Ceftriaxone Sodium 1 gm/ Dextrose 55 ml @ 110 mls/hr Q24H IVPB 05/25/20 12:00 06/01/20 11:59 05/25/20 12:28 Dexamethasone Sodium Phosphate (Decadron 10mg/ ml Inj) 6 mg DAILY IV 05/24/20 09:00 06/03/20 08:59 05/26/20 09:36 Dextrose (Dextrose 50%) 25 ml Q30M PRN IV Hypoglycemia 05/24/20 00:15 08/22/20 00:14 Dextrose (Dextrose 50%) 50 ml Q30M PRN IV Hypoglycemia 05/24/20 00:15 08/22/20 00:14 Docusate Sodium (Colace) 100 mg THREE TIMES A DAY ORAL 05/23/20 18:00 06/22/20 17:59 05/26/20 09:35 Ergocalciferol (Drisdol) 50,000 intlu QWEEK ORAL 05/25/20 13:00 06/24/20 12:59 05/25/20 13:19 Heparin Sodium (Porcine) (Heparin 5000 units/ml) 5,000 units EVERY 12 HOURS SUBQ 05/23/20 21:00 07/07/20 20:59 05/26/20 09:37 Hydralazine HCl (Apresoline) 25 mg Q4H PRN ORAL BP over 160 systolic 05/23/20 14:23 08/21/20 14:22 Insulin Aspart (NovoLOG) BEFORE MEALS AND HS SUBQ 05/24/20 06:30 08/22/20 06:29 05/26/20 05:25 Insulin Detemir (Levemir) 10 units EVERY 12 HOURS SUBQ 05/24/20 09:00 08/22/20 09:00 05/26/20 09:38 Metoclopramide HCl (Reglan) 10 mg Q6H PRN IVP Nausea & Vomiting 05/23/20 14:24 06/22/20 14:23 Metoprolol Tartrate (Lopressor) 25 mg EVERY 12 HOURS ORAL 05/24/20 09:00 08/22/20 08:59 05/26/20 09:36 Nateglinide (Starlix) 120 mg TIAC ORAL 05/23/20 16:30 06/22/20 16:29 05/26/20 05:24 Nitroglycerin (Ntg) 1 patch Q24H TDERMAL 05/23/20 15:00 06/22/20 14:59 05/25/20 14:31 Pantoprazole (Protonix) 40 mg EVERY 12 HOURS ORAL 05/23/20 21:00 06/22/20 20:59 05/26/20 09:36 Pioglitazone HCl (Actos) 15 mg ACBREAKFAST ORAL 05/24/20 06:30 06/23/20 06:29 05/26/20 05:24 Quetiapine Fumarate (SEROqueL) 25 mg BEDTIME ORAL 05/26/20 21:00 07/10/20 20:59 Sevelamer Carbonate (Renvela) 2,400 mg THREE TIMES A DAY ORAL 05/24/20 18:00 08/21/20 17:59 05/26/20 09:36 Assessment/Plan Assessment/Plan 1. COVID pneumonia. - Continue Decadron - On broad-spectrum antibiotics. - currently saturating at 93-94% on 15L NRB - keep saO2 >92% 2. Pulmonary edema. 3. ESRD, on dialysis. 4. Hypertension. 5. Diabetes mellitus. - on glucose-lowering agents - monitor BGs 6. Elevated inflammatory markers. - DVT prophylaxis with Lovenox/subcu heparin. 7. Pancreatitis. - Keep NPO due to elevated lipase. NPO except medication crush with apple sauce, per ST eval recommendation We will follow carefully. The care for this patient was discussed with my supervising physician Time spent for this case was approximately 31 minutes Mario Gutierrez May 26, 2020 11:27
[2020-05-26 12:00] VITALS: BP_SYST 125; BP_DIAS 3; BP_DIAS 63
--- NOTE | 2020-05-26 12:08 | Cardiac Electrophysiology PN ---
Assessment/Plan Assessment/Plan 1. Troponin elevation due to renal failure in this patient who is on hemodialysis. The EKG shows sinus rhythm at a rate of [address]-T wave abnormalities. On aspirin and metoprolol 25 bid 2. Hypertension. On Lopressor, HD and prn hydralazine 3. End-stage renal disease, on hemodialysis. 4. Diabetes, on insulin. Blood glucose is not controlled, in the 400. 5. COVID pneumonia, on dexamethasone DW RN Subjective Subjective Alert in NAD in covid isolation. HD yesterday. on 15 liter NRB FM Objective Last 24 Hour Vital Signs Date Time Temp Pulse Resp B/P (MAP) Pulse Ox O2 Delivery O2 Flow Rate FiO2 05/26/20 09:36 92 140/74 05/26/20 09:00 Non-Rebreather 15.0 05/26/20 08:00 85 05/26/20 08:00 97.7 92 20 140/74 (96) 94 05/26/20 04:00 87 05/26/20 04:00 98.8 102 20 140/70 (93) 93 05/26/20 00:00 98.5 111 20 132/67 (88) 92 05/26/20 00:00 108 05/25/20 21:28 103 124/65 05/25/20 21:00 Non-Rebreather 15.0 05/25/20 20:00 84 05/25/20 20:00 98.1 103 22 124/65 (84) 90 05/25/20 16:00 80 05/25/20 16:00 98.4 100 20 131/71 (91) 95 05/25/20 14:31 129/61 Intake and Output 05/25/20 05/26/20 19:00 07:00 Intake Total 120 ml 240 ml Output Total 3200 ml 0 ml Balance -3080 ml 240 ml Intake Oral 120 ml 240 ml Output Urine Total 1200 ml 0 ml Hemodialysis UF 2000 ml # Voids 3 Laboratory Tests Test 05/25/20 16:26 05/25/20 17:01 05/25/20 20:15 05/26/20 04:00 POC Whole Blood Glucose 314 MG/DL (74-106) H 251 MG/DL (74-106) H Arterial Blood pH 7.518 (7.350-7.450) Arterial Blood Partial Pressure CO2 34.4 mmHg (35.0-45.0) L Arterial Blood Partial Pressure O2 59.8 mmHg (75.0-100.0) L Arterial Blood HCO3 27.3 mmol/L (22.0-26.0) H Arterial Blood Oxygen Saturation 89.3 % (95-100) *L Arterial Blood Base Excess 4.5 (-2-2) H Micheal Test Positive White Blood Count 13.4 K/UL (4.8-10.8) H Red Blood Count 3.21 M/UL (4.70-6.10) L Hemoglobin 10.5 G/DL (14.2-18.0) L Hematocrit 29.2 % (42.0-52.0) L Mean Corpuscular Volume 91 FL (80-99) Mean Corpuscular Hemoglobin 32.6 PG (27.0-31.0) H Mean Corpuscular Hemoglobin Concent 35.9 G/DL (32.0-36.0) Red Cell Distribution Width 13.0 % (11.6-14.8) Platelet Count 232 K/UL (150-450) Mean Platelet Volume 6.8 FL (6.5-10.1) Neutrophils (%) (Auto) % (45.0-75.0) Lymphocytes (%) (Auto) % (20.0-45.0) Monocytes (%) (Auto) % (1.0-10.0) Eosinophils (%) (Auto) % (0.0-3.0) Basophils (%) (Auto) % (0.0-2.0) Sodium Level 143 MMOL/L (136-145) Potassium Level 4.4 MMOL/L (3.5-5.1) Chloride Level 100 MMOL/L (98-107) Carbon Dioxide Level 29 MMOL/L (21-32) Anion Gap 14 mmol/L (5-15) Blood Urea Nitrogen 90 mg/dL (7-18) H Creatinine 11.7 MG/DL (0.55-1.30) H Estimat Glomerular Filtration Rate 4.4 mL/min (>60) Glucose Level 278 MG/DL (74-106) H Calcium Level 9.4 MG/DL (8.5-10.1) Phosphorus Level 8.8 MG/DL (2.5-4.9) H Magnesium Level 2.7 MG/DL (1.8-2.4) H Total Bilirubin 0.7 MG/DL (0.2-1.0) Aspartate Amino Transf (AST/SGOT) 74 U/L (15-37) H Alanine Aminotransferase (ALT/SGPT) 58 U/L (12-78) Alkaline Phosphatase 107 U/L (46-116) C-Reactive Protein, Quantitative 24.9 mg/dL (0.00-0.90) H Total Protein 7.1 G/DL (6.4-8.2) Albumin 2.6 G/DL (3.4-5.0) L Globulin 4.5 g/dL Albumin/Globulin Ratio 0.6 (1.0-2.7) L Test 05/26/20 05:07 POC Whole Blood Glucose 303 MG/DL (74-106) H Objective HEAD AND NECK: No JVD. LUNGS: Coarse rhonchi. CARDIOVASCULAR: Regular S1 and S2 with no gallop. ABDOMEN: Soft. EXTREMITIES: No pitting edema. Rhett Nayak MD May 26, 2020 12:08
[2020-05-26] MEDS: cefTRIAXone 1 GM in D5W 55 ML IVPB SCH (12:48)
[2020-05-26] MEDS: Nitroglycerin Patch 0.4mg TDERMAL SCH (15:20)
[2020-05-26 16:00] VITALS: BP 119/57
[2020-05-26 20:00] VITALS: BP 144/65
--- NOTE | 2020-05-26 21:08 | General Progress Note ---
Subjective ROS Limited/Unobtainable: Yes Allergies: Coded Allergies: No Known Allergies (Unverified , 05/22/20) Objective Last 24 Hour Vital Signs Date Time Temp Pulse Resp B/P (MAP) Pulse Ox O2 Delivery O2 Flow Rate FiO2 05/26/20 21:00 Non-Rebreather 15.0 05/26/20 20:53 74 118/58 05/26/20 20:00 98.4 92 24 144/65 (91) 90 05/26/20 16:00 61 05/26/20 16:00 98.1 75 22 119/57 (77) 93 05/26/20 15:20 125/63 05/26/20 12:00 98.2 72 22 125/63 (83) 94 05/26/20 12:00 59 05/26/20 09:36 92 140/74 05/26/20 09:00 Non-Rebreather 15.0 05/26/20 08:00 85 05/26/20 08:00 97.7 92 20 140/74 (96) 94 05/26/20 04:00 87 05/26/20 04:00 98.8 102 20 140/70 (93) 93 05/26/20 00:00 98.5 111 20 132/67 (88) 92 05/26/20 00:00 108 05/25/20 21:28 103 124/65 Intake and Output 05/25/20 05/26/20 19:00 07:00 Intake Total 120 ml 240 ml Output Total 3200 ml 0 ml Balance -3080 ml 240 ml Intake Oral 120 ml 240 ml Output Urine Total 1200 ml 0 ml Hemodialysis UF 2000 ml # Voids 3 Laboratory Tests 05/26/20 04:00: White Blood Count 13.4H, Red Blood Count 3.21L, Hemoglobin 10.5L, Hematocrit 29.2L, Mean Corpuscular Volume 91, Mean Corpuscular Hemoglobin 32.6H, Mean Corpuscular Hemoglobin Concent 35.9, Red Cell Distribution Width 13.0, Platelet Count 232, Mean Platelet Volume 6.8, Neutrophils (%) (Auto) , Lymphocytes (%) (Auto) , Monocytes (%) (Auto) , Eosinophils (%) (Auto) , Basophils (%) (Auto) , Sodium Level 143, Potassium Level 4.4, Chloride Level 100, Carbon Dioxide Level 29, Anion Gap 14, Blood Urea Nitrogen 90H, Creatinine 11.7H, Estimat Glomerular Filtration Rate 4.4, Glucose Level 278H, Calcium Level 9.4, Phosphorus Level 8.8H, Magnesium Level 2.7H, Total Bilirubin 0.7, Aspartate Amino Transf (AST/SGOT) 74H, Alanine Aminotransferase (ALT/SGPT) 58, Alkaline Phosphatase 107, C-Reactive Protein, Quantitative 24.9H, Total Protein 7.1, Albumin 2.6L, Globulin 4.5, Albumin/Globulin Ratio 0.6L 05/26/20 05:07: POC Whole Blood Glucose 303H 05/26/20 12:45: POC Whole Blood Glucose [Pending] 05/26/20 17:03: POC Whole Blood Glucose 339H 05/26/20 20:48: POC Whole Blood Glucose 270H Height (Feet): 5 Height (Inches): 6.00 Weight (Pounds): 202 Assessment/Plan Problem List: (1) Anemia, chronic renal failure ICD Codes: N18.9 - Chronic kidney disease, unspecified; D63.1 - Anemia in chronic kidney disease SNOMED: 77086794, [id number] Qualifiers: Qualified Codes: N18.5 - Chronic kidney disease, stage 5; D63.1 - Anemia in chronic kidney disease (2) Hyperglycemia due to type 2 diabetes mellitus ICD Codes: E11.65 - Type 2 diabetes mellitus with hyperglycemia SNOMED: [id number], [id number] Qualifiers: Qualified Codes: E11.65 - Type 2 diabetes mellitus with hyperglycemia (3) ESRD (end stage renal disease) on dialysis ICD Codes: N18.6 - End stage renal disease; Z99.2 - Dependence on renal dialysis SNOMED: [id number] (4) Acute respiratory failure with hypoxia ICD Codes: J96.01 - Acute respiratory failure with hypoxia; J12.89 - Other viral pneumonia SNOMED: 77184357, [id number] (5) Pneumonia due to COVID-19 virus ICD Codes: U07.1 - COVID-19; J12.89 - Other viral pneumonia SNOMED: [id number] Status: progressing Assessment/Plan: covid pneumonia s/p oxygen labile sugar Estela Zuleta MD May 26, 2020 21:08
[2020-05-27] VITALS: BP 134/64
[2020-05-27 04:00] VITALS: BP 145/71
[2020-05-27] MEDS: NovoLOG Insulin Flexpen SUBQ SCH ×4 (05:32→21:00)
[2020-05-27 08:00] VITALS: BP 141/67
[2020-05-27] MEDS: Docusate 100mg cap ORAL SCH ×3 (08:43→17:07)
[2020-05-27] MEDS: dexAMETHasone 10mg/ml Inj IV SCH (08:43)
[2020-05-27] MEDS: Heparin 5000 units/ml inj SUBQ SCH ×2 (08:45→21:09)
[2020-05-27] MEDS: Aspirin Baby 81mg ORAL SCH (08:45)
--- NOTE | 2020-05-27 11:14 | Infectious Diseases Prog Note ---
Assessment/Plan Assessment/Plan antibiotics : ceftriaxone A 1. covid 19 pneumonia on 15 liters O2 with 94 % saturation 2. diabetes mellitus 3. hypertension 4. renal failure on HD 5. pancreatitis P 1. continue ceftriaxone 2. continue decadron day 6 3. continue isolation Subjective ROS Limited/Unobtainable: Yes Allergies: Coded Allergies: No Known Allergies (Unverified , 05/22/20) Objective Last 24 Hour Vital Signs Date Time Temp Pulse Resp B/P (MAP) Pulse Ox O2 Delivery O2 Flow Rate FiO2 05/27/20 08:45 91 141/67 05/27/20 08:00 101 05/27/20 08:00 98.3 91 21 141/67 (91) 94 05/27/20 04:00 98.4 83 24 145/71 (95) 91 05/27/20 04:00 86 05/27/20 00:00 77 05/27/20 00:00 99.1 76 24 134/64 (87) 90 05/26/20 21:00 Non-Rebreather 15.0 05/26/20 20:53 74 118/58 05/26/20 20:00 98.4 92 24 144/65 (91) 90 05/26/20 20:00 77 05/26/20 16:00 61 05/26/20 16:00 98.1 75 22 119/57 (77) 93 05/26/20 15:20 125/63 05/26/20 12:00 98.2 72 22 125/63 (83) 94 05/26/20 12:00 59 Height (Feet): 5 Height (Inches): 6.00 Weight (Pounds): 202 Laboratory Tests Test 05/26/20 12:45 05/26/20 17:03 05/26/20 20:48 05/27/20 05:10 POC Whole Blood Glucose Pending 339 MG/DL (74-106) H 270 MG/DL (74-106) H 167 MG/DL (74-106) H Current Medications Medications (Trade) Dose Ordered Sig/Claude Route PRN Reason Start Time Stop Time Status Last Admin Dose Admin Acetaminophen (Tylenol) 500 mg Q4H PRN ORAL Mild Pain (Pain Scale 1-3) 05/23/20 23:45 06/22/20 23:44 Aspirin (ASA) 81 mg DAILY ORAL 05/23/20 15:00 07/07/20 14:59 05/27/20 08:45 Ceftriaxone Sodium 1 gm/ Dextrose 55 ml @ 110 mls/hr Q24H IVPB 05/25/20 12:00 06/01/20 11:59 05/26/20 12:48 Dexamethasone Sodium Phosphate (Decadron 10mg/ ml Inj) 6 mg DAILY IV 05/24/20 09:00 06/03/20 08:59 05/27/20 08:43 Dextrose (Dextrose 50%) 25 ml Q30M PRN IV Hypoglycemia 05/24/20 00:15 08/22/20 00:14 Dextrose (Dextrose 50%) 50 ml Q30M PRN IV Hypoglycemia 05/24/20 00:15 08/22/20 00:14 Docusate Sodium (Colace) 100 mg THREE TIMES A DAY ORAL 05/23/20 18:00 06/22/20 17:59 05/27/20 08:43 Ergocalciferol (Drisdol) 50,000 intlu QWEEK ORAL 05/25/20 13:00 06/24/20 12:59 05/25/20 13:19 Heparin Sodium (Porcine) (Heparin 5000 units/ml) 5,000 units EVERY 12 HOURS SUBQ 05/23/20 21:00 07/07/20 20:59 05/27/20 08:45 Hydralazine HCl (Apresoline) 25 mg Q4H PRN ORAL BP over 160 systolic 05/23/20 14:23 08/21/20 14:22 Insulin Aspart (NovoLOG) BEFORE MEALS AND HS SUBQ 05/24/20 06:30 08/22/20 06:29 05/27/20 05:32 Insulin Detemir (Levemir) 10 units EVERY 12 HOURS SUBQ 05/24/20 09:00 08/22/20 09:00 05/26/20 20:51 Metoclopramide HCl (Reglan) 10 mg Q6H PRN IVP Nausea & Vomiting 05/23/20 14:24 06/22/20 14:23 Metoprolol Tartrate (Lopressor) 25 mg EVERY 12 HOURS ORAL 05/24/20 09:00 08/22/20 08:59 05/27/20 08:45 Nateglinide (Starlix) 120 mg TIAC ORAL 05/23/20 16:30 06/22/20 16:29 05/27/20 05:31 Nitroglycerin (Ntg) 1 patch Q24H TDERMAL 05/23/20 15:00 06/22/20 14:59 05/26/20 15:20 Pantoprazole (Protonix) 40 mg EVERY 12 HOURS ORAL 05/23/20 21:00 06/22/20 20:59 05/27/20 08:45 Pioglitazone HCl (Actos) 15 mg ACBREAKFAST ORAL 05/24/20 06:30 06/23/20 06:29 05/27/20 05:30 Quetiapine Fumarate (SEROqueL) 25 mg BEDTIME ORAL 05/26/20 21:00 07/10/20 20:59 05/26/20 20:53 Sevelamer Carbonate (Renvela) 2,400 mg THREE TIMES A DAY ORAL 05/24/20 18:00 08/21/20 17:59 05/27/20 08:44 Misty De La Cruz MD May 27, 2020 11:14
--- NOTE | 2020-05-27 11:45 | Nephrology Progress Note ---
Assessment/Plan Problem List: (1) ESRD (end stage renal disease) on dialysis (2) Pneumonia due to COVID-19 virus (3) Acute respiratory failure with hypoxia (4) Hyperglycemia due to type 2 diabetes mellitus (5) Anemia, chronic renal failure (6) Pancreatitis, acute Assessment Patient is being admitted with COVID-19 pneumonia Has acute respiratory distress and hypoxia End-stage renal disease missed last 2 dialysis Anemia of chronic kidney disease Pancreatitis Hyperglycemia Plan May 27: No labs drawn today. Due for dialysis today. Monitor renal parameters and electrolyte in a.m. Continue per consultants. May 26: Labs reviewed. Dialyzed yesterday. Due for dialysis tomorrow. Continue per consultants May 25: Patient due for dialysis today. Labs reviewed. Medication list reviewed continue per consultants. Vitamin D level pending. May 24: Patient dialyzed yesterday. We will order dialysis tomorrow. Will adjust phosphate binders. Medication list and labs reviewed. Continue per consultants. Monitor lipase level and check vitamin D level Previously: Hemodialysis today Renal diet Protonix, Renvela Nitropaste, aspirin Sliding scale insulin, Starlix Per orders Per consultants Subjective ROS Limited/Unobtainable: No Constitutional: Reports: malaise, weakness Objective Objective Last 24 Hour Vital Signs Date Time Temp Pulse Resp B/P (MAP) Pulse Ox O2 Delivery O2 Flow Rate FiO2 05/27/20 08:45 91 141/67 05/27/20 08:00 101 05/27/20 08:00 98.3 91 21 141/67 (91) 94 05/27/20 04:00 98.4 83 24 145/71 (95) 91 05/27/20 04:00 86 05/27/20 00:00 77 05/27/20 00:00 99.1 76 24 134/64 (87) 90 05/26/20 21:00 Non-Rebreather 15.0 05/26/20 20:53 74 118/58 05/26/20 20:00 98.4 92 24 144/65 (91) 90 05/26/20 20:00 77 05/26/20 16:00 61 05/26/20 16:00 98.1 75 22 119/57 (77) 93 05/26/20 15:20 125/63 05/26/20 12:00 98.2 72 22 125/63 (83) 94 05/26/20 12:00 59 Intake and Output 05/26/20 05/27/20 19:00 07:00 Intake Total 650 ml 120 ml Output Total 0 ml Balance 650 ml 120 ml Intake Oral 650 ml 120 ml Output Urine Total 0 ml Current Medications Medications (Trade) Dose Ordered Sig/Claude Route PRN Reason Start Time Stop Time Status Last Admin Dose Admin Acetaminophen (Tylenol) 500 mg Q4H PRN ORAL Mild Pain (Pain Scale 1-3) 05/23/20 23:45 06/22/20 23:44 Aspirin (ASA) 81 mg DAILY ORAL 05/23/20 15:00 07/07/20 14:59 05/27/20 08:45 Ceftriaxone Sodium 1 gm/ Dextrose 55 ml @ 110 mls/hr Q24H IVPB 05/25/20 12:00 06/01/20 11:59 05/26/20 12:48 Dexamethasone Sodium Phosphate (Decadron 10mg/ ml Inj) 6 mg DAILY IV 05/24/20 09:00 06/03/20 08:59 05/27/20 08:43 Dextrose (Dextrose 50%) 25 ml Q30M PRN IV Hypoglycemia 05/24/20 00:15 08/22/20 00:14 Dextrose (Dextrose 50%) 50 ml Q30M PRN IV Hypoglycemia 05/24/20 00:15 08/22/20 00:14 Docusate Sodium (Colace) 100 mg THREE TIMES A DAY ORAL 05/23/20 18:00 06/22/20 17:59 05/27/20 08:43 Ergocalciferol (Drisdol) 50,000 intlu QWEEK ORAL 05/25/20 13:00 06/24/20 12:59 05/25/20 13:19 Heparin Sodium (Porcine) (Heparin 5000 units/ml) 5,000 units EVERY 12 HOURS SUBQ 05/23/20 21:00 07/07/20 20:59 05/27/20 08:45 Hydralazine HCl (Apresoline) 25 mg Q4H PRN ORAL BP over 160 systolic 05/23/20 14:23 08/21/20 14:22 Insulin Aspart (NovoLOG) BEFORE MEALS AND HS SUBQ 05/24/20 06:30 08/22/20 06:29 05/27/20 05:32 Insulin Detemir (Levemir) 10 units EVERY 12 HOURS SUBQ 05/24/20 09:00 08/22/20 09:00 05/26/20 20:51 Metoclopramide HCl (Reglan) 10 mg Q6H PRN IVP Nausea & Vomiting 05/23/20 14:24 06/22/20 14:23 Metoprolol Tartrate (Lopressor) 25 mg EVERY 12 HOURS ORAL 05/24/20 09:00 08/22/20 08:59 05/27/20 08:45 Nateglinide (Starlix) 120 mg TIAC ORAL 05/23/20 16:30 06/22/20 16:29 05/27/20 05:31 Nitroglycerin (Ntg) 1 patch Q24H TDERMAL 05/23/20 15:00 06/22/20 14:59 05/26/20 15:20 Pantoprazole (Protonix) 40 mg EVERY 12 HOURS ORAL 05/23/20 21:00 06/22/20 20:59 05/27/20 08:45 Pioglitazone HCl (Actos) 15 mg ACBREAKFAST ORAL 05/24/20 06:30 06/23/20 06:29 05/27/20 05:30 Quetiapine Fumarate (SEROqueL) 25 mg BEDTIME ORAL 05/26/20 21:00 07/10/20 20:59 05/26/20 20:53 Sevelamer Carbonate (Renvela) 2,400 mg THREE TIMES A DAY ORAL 05/24/20 18:00 08/21/20 17:59 05/27/20 08:44 Laboratory Tests 05/26/20 12:45: POC Whole Blood Glucose [Pending] 05/26/20 17:03: POC Whole Blood Glucose 339H 05/26/20 20:48: POC Whole Blood Glucose 270H 05/27/20 05:10: POC Whole Blood Glucose 167H Height (Feet): 5 Height (Inches): 6.00 Weight (Pounds): 202 General Appearance: no apparent distress Cardiovascular: tachycardia Respiratory/Chest: decreased breath sounds Abdomen: distended Taran Spears MD May 27, 2020 11:45
[2020-05-27 12:00] VITALS: BP 143/73
[2020-05-27] MEDS: cefTRIAXone 1 GM in D5W 55 ML IVPB SCH (12:34)
--- NOTE | 2020-05-27 12:34 | Pulmonology Progress Note ---
Subjective ROS Limited/Unobtainable: Yes Interval Events: due for dialysis today Constitutional: Denies: fever HEENT: Repors: no symptoms Respiratory: Reports: no symptoms Cardiovascular: Reports: no symptoms Gastrointestinal/Abdominal: Reports: no symptoms Genitourinary: Reports: no symptoms Neurologic: Reports: no symptoms Allergies: Coded Allergies: No Known Allergies (Unverified , 05/22/20) Objective Last 24 Hour Vital Signs Date Time Temp Pulse Resp B/P (MAP) Pulse Ox O2 Delivery O2 Flow Rate FiO2 05/27/20 08:45 91 141/67 05/27/20 08:00 101 05/27/20 08:00 98.3 91 21 141/67 (91) 94 05/27/20 04:00 98.4 83 24 145/71 (95) 91 05/27/20 04:00 86 05/27/20 00:00 77 05/27/20 00:00 99.1 76 24 134/64 (87) 90 05/26/20 21:00 Non-Rebreather 15.0 05/26/20 20:53 74 118/58 05/26/20 20:00 98.4 92 24 144/65 (91) 90 05/26/20 20:00 77 05/26/20 16:00 61 05/26/20 16:00 98.1 75 22 119/57 (77) 93 05/26/20 15:20 125/63 Intake and Output 05/26/20 05/27/20 19:00 07:00 Intake Total 650 ml 120 ml Output Total 0 ml Balance 650 ml 120 ml Intake Oral 650 ml 120 ml Output Urine Total 0 ml Objective 05/27 now saturating ok on 5L NC 05/26 saturating 93-94% on 15L NRB; pt appears less agitated today 05/25 saturating 88-93% on 15L NRB; pt appears agitated General Appearance: no acute distress HEENT: normocephalic Respiratory: chest wall non-tender, decreased breath sounds Cardiovascular: normal peripheral pulses, normal rate Abdomen: normal bowel sounds Laboratory Tests 05/26/20 12:45: POC Whole Blood Glucose [Pending] 05/26/20 17:03: POC Whole Blood Glucose 339H 05/26/20 20:48: POC Whole Blood Glucose 270H 05/27/20 05:10: POC Whole Blood Glucose 167H 05/27/20 11:58: POC Whole Blood Glucose 279H Current Medications Medications (Trade) Dose Ordered Sig/Claude Route PRN Reason Start Time Stop Time Status Last Admin Dose Admin Acetaminophen (Tylenol) 500 mg Q4H PRN ORAL Mild Pain (Pain Scale 1-3) 05/23/20 23:45 06/22/20 23:44 Aspirin (ASA) 81 mg DAILY ORAL 05/23/20 15:00 07/07/20 14:59 05/27/20 08:45 Ceftriaxone Sodium 1 gm/ Dextrose 55 ml @ 110 mls/hr Q24H IVPB 05/25/20 12:00 06/01/20 11:59 05/26/20 12:48 Dexamethasone Sodium Phosphate (Decadron 10mg/ ml Inj) 6 mg DAILY IV 05/24/20 09:00 06/03/20 08:59 05/27/20 08:43 Dextrose (Dextrose 50%) 25 ml Q30M PRN IV Hypoglycemia 05/24/20 00:15 08/22/20 00:14 Dextrose (Dextrose 50%) 50 ml Q30M PRN IV Hypoglycemia 05/24/20 00:15 08/22/20 00:14 Docusate Sodium (Colace) 100 mg THREE TIMES A DAY ORAL 05/23/20 18:00 06/22/20 17:59 05/27/20 08:43 Ergocalciferol (Drisdol) 50,000 intlu QWEEK ORAL 05/25/20 13:00 06/24/20 12:59 05/25/20 13:19 Heparin Sodium (Porcine) (Heparin 5000 units/ml) 5,000 units EVERY 12 HOURS SUBQ 05/23/20 21:00 07/07/20 20:59 05/27/20 08:45 Hydralazine HCl (Apresoline) 25 mg Q4H PRN ORAL BP over 160 systolic 05/23/20 14:23 08/21/20 14:22 Insulin Aspart (NovoLOG) BEFORE MEALS AND HS SUBQ 05/24/20 06:30 08/22/20 06:29 05/27/20 05:32 Insulin Detemir (Levemir) 10 units EVERY 12 HOURS SUBQ 05/24/20 09:00 08/22/20 09:00 05/26/20 20:51 Metoclopramide HCl (Reglan) 10 mg Q6H PRN IVP Nausea & Vomiting 05/23/20 14:24 06/22/20 14:23 Metoprolol Tartrate (Lopressor) 25 mg EVERY 12 HOURS ORAL 05/24/20 09:00 08/22/20 08:59 05/27/20 08:45 Nateglinide (Starlix) 120 mg TIAC ORAL 05/23/20 16:30 06/22/20 16:29 05/27/20 05:31 Nitroglycerin (Ntg) 1 patch Q24H TDERMAL 05/23/20 15:00 06/22/20 14:59 05/26/20 15:20 Pantoprazole (Protonix) 40 mg EVERY 12 HOURS ORAL 05/23/20 21:00 06/22/20 20:59 05/27/20 08:45 Pioglitazone HCl (Actos) 15 mg ACBREAKFAST ORAL 05/24/20 06:30 06/23/20 06:29 05/27/20 05:30 Quetiapine Fumarate (SEROqueL) 25 mg BEDTIME ORAL 05/26/20 21:00 07/10/20 20:59 05/26/20 20:53 Sevelamer Carbonate (Renvela) 2,400 mg THREE TIMES A DAY ORAL 05/24/20 18:00 08/21/20 17:59 05/27/20 08:44 Assessment/Plan Assessment/Plan 1. COVID pneumonia. - Continue Decadron - On ceftriaxone - currently saturating ok on 5L NC - keep saO2 >92% 2. Pulmonary edema. 3. ESRD, on dialysis. 4. Hypertension. 5. Diabetes mellitus. - on glucose-lowering agents - monitor BGs 6. Elevated inflammatory markers. - DVT prophylaxis with Lovenox/subcu heparin. 7. Pancreatitis. - Keep NPO due to elevated lipase. NPO except medication crush with apple sauce, per ST eval recommendation We will follow carefully. The care for this patient was discussed with my supervising physician Time spent for this case was approximately 31 minutes Mario Gutierrez May 27, 2020 12:34
[2020-05-27] MEDS: Levemir Flexpen SUBQ SCH ×2 (12:56→21:12)
--- NOTE | 2020-05-27 15:07 | Cardiac Electrophysiology PN ---
Assessment/Plan Assessment/Plan 1. Troponin elevation due to renal failure in this patient who is on hemodialysis. The EKG shows sinus rhythm at a rate of [address]-T wave abnormalities. On aspirin and metoprolol 25 bid 2. Hypertension. On Lopressor, HD and prn hydralazine 3. End-stage renal disease, on hemodialysis. 4. Diabetes, on insulin. Blood glucose is not controlled, in the 400. 5. COVID pneumonia, on dexamethasone DW RN Subjective Subjective Alert in NAD in covid isolation. Getting HD on 15 liter NRB FM. BP dropped to 70s after 1 liter of HD and will be getting Albumin Objective Last 24 Hour Vital Signs Date Time Temp Pulse Resp B/P (MAP) Pulse Ox O2 Delivery O2 Flow Rate FiO2 05/27/20 12:00 96.7 87 20 143/73 (96) 95 05/27/20 12:00 91 05/27/20 11:10 Simple Mask 92 05/27/20 09:00 Non-Rebreather 15.0 05/27/20 08:45 91 141/67 05/27/20 08:00 101 05/27/20 08:00 98.3 91 21 141/67 (91) 94 05/27/20 04:00 98.4 83 24 145/71 (95) 91 05/27/20 04:00 86 05/27/20 00:00 77 05/27/20 00:00 99.1 76 24 134/64 (87) 90 05/26/20 21:00 Non-Rebreather 15.0 05/26/20 20:53 74 118/58 05/26/20 20:00 98.4 92 24 144/65 (91) 90 05/26/20 20:00 77 05/26/20 16:00 61 05/26/20 16:00 98.1 75 22 119/57 (77) 93 05/26/20 15:20 125/63 Intake and Output 05/26/20 05/27/20 19:00 07:00 Intake Total 650 ml 120 ml Output Total 0 ml Balance 650 ml 120 ml Intake Oral 650 ml 120 ml Output Urine Total 0 ml Laboratory Tests Test 05/26/20 17:03 05/26/20 20:48 05/27/20 05:10 05/27/20 11:58 POC Whole Blood Glucose 339 MG/DL (74-106) H 270 MG/DL (74-106) H 167 MG/DL (74-106) H 279 MG/DL (74-106) H Objective HEAD AND NECK: No JVD. LUNGS: Coarse rhonchi. CARDIOVASCULAR: Regular S1 and S2 with no gallop. ABDOMEN: Soft. EXTREMITIES: No pitting edema. Rehtt Nayak MD May 27, 2020 15:07
[2020-05-27 16:00] VITALS: BP 129/81
[2020-05-27] MEDS: Nitroglycerin Patch 0.4mg TDERMAL SCH (17:21)
[2020-05-27 20:00] VITALS: BP 143/68
--- NOTE | 2020-05-27 21:56 | General Progress Note ---
Subjective ROS Limited/Unobtainable: Yes Allergies: Coded Allergies: No Known Allergies (Unverified , 05/22/20) Objective Last 24 Hour Vital Signs Date Time Temp Pulse Resp B/P (MAP) Pulse Ox O2 Delivery O2 Flow Rate FiO2 05/27/20 21:08 70 135/86 05/27/20 17:21 129/81 05/27/20 16:00 98.6 82 20 129/81 (97) 94 05/27/20 16:00 79 05/27/20 14:35 Simple Mask 90 05/27/20 12:00 96.7 87 20 143/73 (96) 95 05/27/20 12:00 91 05/27/20 11:10 Simple Mask 92 05/27/20 09:00 Non-Rebreather 15.0 05/27/20 08:45 91 141/67 05/27/20 08:00 101 05/27/20 08:00 98.3 91 21 141/67 (91) 94 05/27/20 04:00 98.4 83 24 145/71 (95) 91 05/27/20 04:00 86 05/27/20 00:00 77 05/27/20 00:00 99.1 76 24 134/64 (87) 90 Intake and Output 05/26/20 05/27/20 19:00 07:00 Intake Total 650 ml 120 ml Output Total 0 ml Balance 650 ml 120 ml Intake Oral 650 ml 120 ml Output Urine Total 0 ml Laboratory Tests 05/27/20 05:10: POC Whole Blood Glucose 167H 05/27/20 11:58: POC Whole Blood Glucose 279H 05/27/20 16:57: POC Whole Blood Glucose [Pending] Height (Feet): 5 Height (Inches): 6.00 Weight (Pounds): 202 Assessment/Plan Problem List: (1) Anemia, chronic renal failure ICD Codes: N18.9 - Chronic kidney disease, unspecified; D63.1 - Anemia in chronic kidney disease SNOMED: 66335594, 49721401 Qualifiers: Qualified Codes: N18.5 - Chronic kidney disease, stage 5; D63.1 - Anemia in chronic kidney disease (2) Hyperglycemia due to type 2 diabetes mellitus ICD Codes: E11.65 - Type 2 diabetes mellitus with hyperglycemia SNOMED: 506314922381391, 19166526 Qualifiers: Qualified Codes: E11.65 - Type 2 diabetes mellitus with hyperglycemia (3) ESRD (end stage renal disease) on dialysis ICD Codes: N18.6 - End stage renal disease; Z99.2 - Dependence on renal dialysis SNOMED: 438375882 (4) Acute respiratory failure with hypoxia ICD Codes: J96.01 - Acute respiratory failure with hypoxia; J12.89 - Other viral pneumonia SNOMED: 27389738, 293936674 (5) Pneumonia due to COVID-19 virus ICD Codes: U07.1 - COVID-19; J12.89 - Other viral pneumonia SNOMED: 196179526683360447 Status: progressing Assessment/Plan: covid pneumonia afebrile no change reviewed chart Estela Zuleta MD May 27, 2020 21:56
[2020-05-28] VITALS: BP 123/63
[2020-05-28 04:00] VITALS: BP 141/68
[2020-05-28 05:01] LABS: HEMATOCRIT 30.6 % (42.0-52.0); HEMOGLOBIN 10.4 G/DL (14.2-18.0); MEAN CORPUSCULAR VOLUME 97 FL (80-99); PLATELET COUNT 194 K/UL (150-450); RED BLOOD COUNT 3.17 M/UL (4.70-6.10); RED CELL DISTRIBUTION WIDTH 12.6 % (11.6-14.8)
[2020-05-28 05:35] LABS: ALBUMIN 2.8 G/DL (3.4-5.0); ALBUMIN/GLOBULIN RATIO 0.7 (1.0-2.7); BILIRUBIN,TOTAL 0.8 MG/DL (0.2-1.0); CALCIUM 9.1 MG/DL (8.5-10.1); CREATININE 9.9 MG/DL (0.55-1.30); PHOSPHORUS 7.4 MG/DL (2.5-4.9); POTASSIUM 4.4 MMOL/L (3.5-5.1)
[2020-05-28] MEDS: NovoLOG Insulin Flexpen SUBQ SCH ×4 (06:46→21:53)
[2020-05-28 08:00] VITALS: BP 139/69
[2020-05-28] MEDS: Aspirin Baby 81mg ORAL SCH (09:46)
[2020-05-28] MEDS: dexAMETHasone 10mg/ml Inj IV SCH (09:46)
[2020-05-28] MEDS: Docusate 100mg cap ORAL SCH ×3 (09:46→17:02)
[2020-05-28] MEDS: Heparin 5000 units/ml inj SUBQ SCH ×2 (09:47→21:26)
[2020-05-28] MEDS: Levemir Flexpen SUBQ SCH ×2 (09:53→21:52)
--- NOTE | 2020-05-28 10:52 | Nephrology Progress Note ---
Assessment/Plan Problem List: (1) ESRD (end stage renal disease) on dialysis (2) Pneumonia due to COVID-19 virus (3) Acute respiratory failure with hypoxia (4) Hyperglycemia due to type 2 diabetes mellitus (5) Anemia, chronic renal failure (6) Pancreatitis, acute Assessment Patient is being admitted with COVID-19 pneumonia Has acute respiratory distress and hypoxia End-stage renal disease missed last 2 dialysis Anemia of chronic kidney disease Pancreatitis Hyperglycemia Plan May 28: Labs reviewed. Dialyzed yesterday. Next dialysis tomorrow or day after as needed. Continue per consultants. May 27: No labs drawn today. Due for dialysis today. Monitor renal parameters and electrolyte in a.m. Continue per consultants. May 26: Labs reviewed. Dialyzed yesterday. Due for dialysis tomorrow. Continue per consultants May 25: Patient due for dialysis today. Labs reviewed. Medication list reviewed continue per consultants. Vitamin D level pending. May 24: Patient dialyzed yesterday. We will order dialysis tomorrow. Will adjust phosphate binders. Medication list and labs reviewed. Continue per consultants. Monitor lipase level and check vitamin D level Previously: Hemodialysis today Renal diet Protonix, Renvela Nitropaste, aspirin Sliding scale insulin, Starlix Per orders Per consultants Subjective ROS Limited/Unobtainable: No Constitutional: Reports: malaise Objective Objective Last 24 Hour Vital Signs Date Time Temp Pulse Resp B/P (MAP) Pulse Ox O2 Delivery O2 Flow Rate FiO2 05/28/20 09:46 95 139/69 05/28/20 08:00 99.0 95 22 139/69 (92) 94 05/28/20 04:00 88 05/28/20 04:00 99.5 24 141/68 (92) 95 05/28/20 00:00 99.5 24 123/63 (83) 90 05/28/20 00:00 89 05/27/20 21:08 70 135/86 05/27/20 21:00 Non-Rebreather 15.0 05/27/20 20:00 89 05/27/20 20:00 99.2 22 143/68 (93) 96 05/27/20 17:21 129/81 05/27/20 16:00 98.6 82 20 129/81 (97) 94 05/27/20 16:00 79 05/27/20 14:35 Simple Mask 90 12/30/20 12:00 96.7 87 20 143/73 (96) 95 05/27/20 12:00 91 05/27/20 11:10 Simple Mask 92 Intake and Output 05/27/20 05/28/20 19:00 07:00 Intake Total 175 ml 100 ml Output Total 1200 ml 0 ml Balance -1025 ml 100 ml Intake Oral 120 ml 100 ml IV Total 55 ml Output Urine Total 1200 ml 0 ml # Voids 3 1 Laboratory Tests 05/27/20 11:58: POC Whole Blood Glucose 279H 05/27/20 16:57: POC Whole Blood Glucose [Pending] 05/28/20 04:30: White Blood Count 13.0H, Red Blood Count 3.17L, Hemoglobin 10.4L, Hematocrit 30.6L, Mean Corpuscular Volume 97, Mean Corpuscular Hemoglobin 32.8H, Mean Corpuscular Hemoglobin Concent 33.9, Red Cell Distribution Width 12.6, Platelet Count 194, Mean Platelet Volume 7.5, Neutrophils (%) (Auto) , Lymphocytes (%) (A uto) , Monocytes (%) (Auto) , Eosinophils (%) (Auto) , Basophils (%) (Auto) , Differential Total Cells Counted 100, Neutrophils % (Manual) 95H, Lymphocytes % (Manual) 2L, Monocytes % (Manual) 3, Eosinophils % (Manual) 0, Basophils % (Manual) 0, Band Neutrophils 0, Platelet Estimate Adequate, Platelet Morphology Normal, Polychromasia 1+, Sodium Level 142, Potassium Level 4.4, Chloride Level 99, Carbon Dioxide Level 32, Anion Gap 11, Blood Urea Nitrogen 97H, Creatinine 9.9H, Estimat Glomerular Filtration Rate 5.3, Glucose Level 226H, Calcium Level 9.1, Phosphorus Level 7.4H, Total Bilirubin 0.8, Aspartate Amino Transf (AST/SG OT) 50H, Alanine Aminotransferase (ALT/SGPT) 44, Alkaline Phosphatase 126H, C-Reactive Protein, Quantitative 28.1H, Pro-B-Type Natriuretic Peptide 4769H, Total Protein 7.0, Albumin 2.8L, Globulin 4.2, Albumin/Globulin Ratio 0.7L 05/28/20 06:24: POC Whole Blood Glucose 222H 05/28/20 10:37: Arterial Blood pH 7.462H, Arterial Blood Partial Pressure CO2 38.8, Arterial Blood Partial Pressure O2 54.8L, Arterial Blood HCO3 27.1H, Arterial Blood Oxygen Saturation 86.1*L, Arterial Blood Base Excess 3.2H, Micheal Test Positive Height (Feet): 5 Height (Inches): 6.00 Weight (Pounds): 202 General Appearance: no apparent distress Cardiovascular: tachycardia Respiratory/Chest: decreased breath sounds Abdomen: distended Taran Spears MD May 28, 2020 10:52
[2020-05-28 12:00] VITALS: BP 145/67
--- NOTE | 2020-05-28 13:33 | General Progress Note ---
Subjective ROS Limited/Unobtainable: No Allergies: Coded Allergies: No Known Allergies (Unverified , 05/22/20) Objective Last 24 Hour Vital Signs Date Time Temp Pulse Resp B/P (MAP) Pulse Ox O2 Delivery O2 Flow Rate FiO2 05/28/20 12:00 98.8 72 24 145/67 (93) 93 05/28/20 09:46 95 139/69 05/28/20 09:00 Non-Rebreather 15.0 05/28/20 08:00 99.0 95 22 139/69 (92) 94 05/28/20 08:00 68 05/28/20 04:00 88 05/28/20 04:00 99.5 24 141/68 (92) 95 05/28/20 00:00 99.5 24 123/63 (83) 90 05/28/20 00:00 89 05/27/20 21:08 70 135/86 05/27/20 21:00 Non-Rebreather 15.0 05/27/20 20:00 89 05/27/20 20:00 99.2 22 143/68 (93) 96 05/27/20 17:21 129/81 05/27/20 16:00 98.6 82 20 129/81 (97) 94 05/27/20 16:00 79 05/27/20 14:35 Simple Mask 90 Intake and Output 05/27/20 05/28/20 19:00 07:00 Intake Total 175 ml 100 ml Output Total 1200 ml 0 ml Balance -1025 ml 100 ml Intake Oral 120 ml 100 ml IV Total 55 ml Output Urine Total 1200 ml 0 ml # Voids 3 1 Laboratory Tests 05/27/20 16:57: POC Whole Blood Glucose [Pending] 05/28/20 04:30: White Blood Count 13.0H, Red Blood Count 3.17L, Hemoglobin 10.4L, Hematocrit 30.6L, Mean Corpuscular Volume 97, Mean Corpuscular Hemoglobin 32.8H, Mean Corpuscular Hemoglobin Concent 33.9, Red Cell Distribution Width 12.6, Platelet Count 194, Mean Platelet Volume 7.5, Neutrophils (%) (Auto) , Lymphocytes (%) (Auto) , Monocytes (%) (Auto) , Eosinophils (%) (Auto) , Basophils (%) (Auto) , Differential Total Cells Counted 100, Neutrophils % (Manual) 95H, Lymphocytes % (Manual) 2L, Monocytes % (Manual) 3, Eosinophils % (Manual) 0, Basophils % (Manual) 0, Band Neutrophils 0, Platelet Estimate Adequate, Platelet Morphology Normal, Polychromasia 1+, Sodium Level 142, Potassium Level 4.4, Chloride Level 99, Carbon Dioxide Level 32, Anion Gap 11, Blood Urea Nitrogen 97H, Creatinine 9.9H, Estimat Glomerular Filtration Rate 5.3, Glucose Level 226H, Calcium Level 9.1, Phosphorus Level 7.4H, Total Bilirubin 0.8, Aspartate Amino Transf (AST/SGOT) 50H, Alanine Aminotransferase (ALT/SGPT) 44, Alkaline Phosphatase 126H, C-Reactive Protein, Quantitative 28.1H, Pro-B-Type Natriuretic Peptide 4769H, Total Protein 7.0, Albumin 2.8L, Globulin 4.2, Albumin/Globulin Ratio 0.7L 05/28/20 06:24: POC Whole Blood Glucose 222H 05/28/20 10:37: Arterial Blood pH 7.462H, Arterial Blood Partial Pressure CO2 38.8, Arterial Blood Partial Pressure O2 54.8L, Arterial Blood HCO3 27.1H, Arterial Blood Oxygen Saturation 86.1*L, Arterial Blood Base Excess 3.2H, Micheal Test Positive 05/28/20 12:20: POC Whole Blood Glucose [Pending] Height (Feet): 5 Height (Inches): 6.00 Weight (Pounds): 202 General Appearance: confused EENT: normal ENT inspection Neck: supple Cardiovascular: normal rate Respiratory/Chest: decreased breath sounds Abdomen: normal bowel sounds, non tender, soft Extremities: non-tender Assessment/Plan Status: progressing Assessment/Plan: dysphagia respiratory failure on 100 % venuti mask ESRD HTN DM needs NGT placement and NGTF but patient is not stable today will reevaluate for tomorrow Bethel Garcia MD May 28, 2020 13:32
[2020-05-28] MEDS ORDERED: Varibar Honey 250ml MC PRN (14:15)
[2020-05-28] MEDS ORDERED: Varibar Pudding 230ml MC PRN (14:15)
[2020-05-28] MEDS ORDERED: Varibar Thin Liquid powder 148gm MC PRN (14:15)
[2020-05-28] MEDS ORDERED: Varibar Nectar 240ml MC PRN (14:15)
--- NOTE | 2020-05-28 15:10 | Pulmonology Progress Note ---
Subjective ROS Limited/Unobtainable: No Interval Events: Hypoxic despite NRBM today Constitutional: Reports: fever HEENT: Repors: no symptoms Respiratory: Reports: no symptoms Cardiovascular: Reports: no symptoms Gastrointestinal/Abdominal: Reports: no symptoms Genitourinary: Reports: no symptoms Neurologic: Reports: no symptoms Allergies: Coded Allergies: No Known Allergies (Unverified , 05/22/20) Objective Last 24 Hour Vital Signs Date Time Temp Pulse Resp B/P (MAP) Pulse Ox O2 Delivery O2 Flow Rate FiO2 05/28/20 12:00 98.8 72 24 145/67 (93) 93 05/28/20 12:00 77 05/28/20 09:46 95 139/69 05/28/20 09:00 Non-Rebreather 15.0 05/28/20 08:00 99.0 95 22 139/69 (92) 94 05/28/20 08:00 68 05/28/20 04:00 88 05/28/20 04:00 99.5 24 141/68 (92) 95 05/28/20 00:00 99.5 24 123/63 (83) 90 05/28/20 00:00 89 05/27/20 21:08 70 135/86 05/27/20 21:00 Non-Rebreather 15.0 05/27/20 20:00 89 05/27/20 20:00 99.2 22 143/68 (93) 96 05/27/20 17:21 129/81 05/27/20 16:00 98.6 82 20 129/81 (97) 94 05/27/20 16:00 79 Intake and Output 05/27/20 05/28/20 19:00 07:00 Intake Total 175 ml 100 ml Output Total 1200 ml 0 ml Balance -1025 ml 100 ml Intake Oral 120 ml 100 ml IV Total 55 ml Output Urine Total 1200 ml 0 ml # Voids 3 1 General Appearance: no acute distress HEENT: normocephalic Respiratory: chest wall non-tender, decreased breath sounds Cardiovascular: normal peripheral pulses, normal rate Abdomen: normal bowel sounds Laboratory Tests 05/27/20 16:57: POC Whole Blood Glucose [Pending] 05/28/20 04:30: White Blood Count 13.0H, Red Blood Count 3.17L, Hemoglobin 10.4L, Hematocrit 30.6L, Mean Corpuscular Volume 97, Mean Corpuscular Hemoglobin 32.8H, Mean Corpuscular Hemoglobin Concent 33.9, Red Cell Distribution Width 12.6, Platelet Count 194, Mean Platelet Volume 7.5, Neutrophils (%) (Auto) , Lymphocytes (%) (Auto) , Monocytes (%) (Auto) , Eosinophils (%) (Auto) , Basophils (%) (Auto) , Differential Total Cells Counted 100, Neutrophils % (Manual) 95H, Lymphocytes % (Manual) 2L, Monocytes % (Manual) 3, Eosinophils % (Manual) 0, Basophils % (Manual) 0, Band Neutrophils 0, Platelet Estimate Adequate, Platelet Morphology Normal, Polychromasia 1+, Sodium Level 142, Potassium Level 4.4, Chloride Level 99, Carbon Dioxide Level 32, Anion Gap 11, Blood Urea Nitrogen 97H, Creatinine 9.9H, Estimat Glomerular Filtration Rate 5.3, Glucose Level 226H, Calcium Level 9.1, Phosphorus Level 7.4H, Total Bilirubin 0.8, Aspartate Amino Transf (AST/SGOT) 50H, Alanine Aminotransferase (ALT/SGPT) 44, Alkaline Phosphatase 126H, C-Reactive Protein, Quantitative 28.1H, Pro-B-Type Natriuretic Peptide 4769H, Total Protein 7.0, Albumin 2.8L, Globulin 4.2, Albumin/Globulin Ratio 0.7L 05/28/20 06:24: POC Whole Blood Glucose 222H 05/28/20 10:37: Arterial Blood pH 7.462H, Arterial Blood Partial Pressure CO2 38.8, Arterial Blood Partial Pressure O2 54.8L, Arterial Blood HCO3 27.1H, Arterial Blood Oxygen Saturation 86.1*L, Arterial Blood Base Excess 3.2H, Micheal Test Positive 05/28/20 12:20: POC Whole Blood Glucose [Pending] Current Medications Medications (Trade) Dose Ordered Sig/Claude Route PRN Reason Start Time Stop Time Status Last Admin Dose Admin Acetaminophen (Tylenol) 500 mg Q4H PRN ORAL Mild Pain (Pain Scale 1-3) 05/23/20 23:45 06/22/20 23:44 Aspirin (ASA) 81 mg DAILY ORAL 05/23/20 15:00 07/07/20 14:59 05/28/20 09:46 Barium Sulfate (Varibar Honey) 250 ml NOW PRN MC RAD 05/28/20 14:15 05/31/20 14:07 Barium Sulfate (Varibar [place]) 240 ml NOW PRN RAD 05/28/20 14:15 05/31/20 14:07 Barium Sulfate (Varibar Pudding) 230 ml NOW PRN RAD 05/28/20 14:15 05/31/20 14:07 Barium Sulfate (Varibar Thin Liquid powder) 148 gm NOW PRN RAD 05/28/20 14:15 05/31/20 14:07 Ceftriaxone Sodium 1 gm/ Dextrose 55 ml @ 110 mls/hr Q24H IVPB 05/25/20 12:00 06/01/20 11:59 05/27/20 12:34 Dexamethasone Sodium Phosphate (Decadron 10mg/ ml Inj) 6 mg DAILY IV 05/24/20 09:00 06/03/20 08:59 05/28/20 09:46 Dextrose (Dextrose 50%) 25 ml Q30M PRN IV Hypoglycemia 05/24/20 00:15 08/22/20 00:14 Dextrose (Dextrose 50%) 50 ml Q30M PRN IV Hypoglycemia 05/24/20 00:15 08/22/20 00:14 Docusate Sodium (Colace) 100 mg THREE TIMES A DAY ORAL 05/23/20 18:00 06/22/20 17:59 05/28/20 09:46 Ergocalciferol (Drisdol) 50,000 intlu QWEEK ORAL 05/25/20 13:00 06/24/20 12:59 05/25/20 13:19 Heparin Sodium (Porcine) (Heparin 5000 units/ml) 5,000 units EVERY 12 HOURS SUBQ 05/23/20 21:00 07/07/20 20:59 05/28/20 09:47 Hydralazine HCl (Apresoline) 25 mg Q4H PRN ORAL BP over 160 systolic 05/23/20 14:23 08/21/20 14:22 Insulin Aspart (NovoLOG) BEFORE MEALS AND HS SUBQ 05/24/20 06:30 08/22/20 06:29 05/28/20 06:46 Insulin Detemir (Levemir) 10 units EVERY 12 HOURS SUBQ 05/24/20 09:00 08/22/20 09:00 05/28/20 09:53 Lansoprazole (Prevacid) 30 mg Q12HR ORAL 05/28/20 21:00 06/27/20 20:59 Metoclopramide HCl (Reglan) 10 mg Q6H PRN IVP Nausea & Vomiting 05/23/20 14:24 06/22/20 14:23 Metoprolol Tartrate (Lopressor) 25 mg EVERY 12 HOURS ORAL 05/24/20 09:00 08/22/20 08:59 05/28/20 09:46 Nateglinide (Starlix) 120 mg TIAC ORAL 05/23/20 16:30 06/22/20 16:29 05/28/20 06:41 Nitroglycerin (Ntg) 1 patch Q24H TDERMAL 05/23/20 15:00 06/22/20 14:59 05/27/20 17:21 Pioglitazone HCl (Actos) 15 mg ACBREAKFAST ORAL 05/24/20 06:30 06/23/20 06:29 05/28/20 06:41 Quetiapine Fumarate (SEROqueL) 25 mg BEDTIME ORAL 05/26/20 21:00 07/10/20 20:59 05/27/20 21:13 Sevelamer Carbonate (Renvela) 2,400 mg THREE TIMES A DAY ORAL 05/28/20 14:00 08/21/20 17:59 Assessment/Plan Assessment/Plan IMPRESSION: 1. COVID pneumonia. 2. Pulmonary edema. 3. ESRD, on dialysis. 4. Hypertension. 5. Diabetes mellitus. 6. Elevated inflammatory markers. 7. Pancreatitis. DISCUSSION: 1. COVID pneumonia. - Continue Decadron - On ceftriaxone - Oxygentaion worse today; on 15L NRBM - keep saO2 >92% 2. Pulmonary edema. 3. ESRD, on dialysis. 4. Hypertension. 5. Diabetes mellitus. - on glucose-lowering agents - monitor BGs 6. Elevated inflammatory markers. - DVT prophylaxis with Lovenox/subcu heparin. We will follow carefully. Needs further HD Jocelyn Gonzales Omar Syed MD May 28, 2020 15:09
[2020-05-28] MEDS: Renvela 2400 mg pkt ORAL SCH ×2 (15:12→17:03)
[2020-05-28] MEDS: cefTRIAXone 1 GM in D5W 55 ML IVPB SCH (15:12)
--- NOTE | 2020-05-28 15:12 | Infectious Diseases Prog Note ---
Assessment/Plan Assessment/Plan IMPRESSION: Sepsis with tachycardia, tachypnea, and fever. COVID-19 pneumonia Hypoxemic respiratory failure, End-stage renal disease, on hemodialysis, Diabetes with hyperglycemia, Anemia, l Lymphocytopenia, Hypertension. Pancreatitis RECOMMENDATION: Continue with dexamethasone. Continue Rocephin Subjective ROS Limited/Unobtainable: Yes Neurologic: Reports: confusion, other - on restraint Allergies: Coded Allergies: No Known Allergies (Unverified , 05/22/20) Objective Last 24 Hour Vital Signs Date Time Temp Pulse Resp B/P (MAP) Pulse Ox O2 Delivery O2 Flow Rate FiO2 05/28/20 12:00 98.8 72 24 145/67 (93) 93 05/28/20 12:00 77 05/28/20 09:46 95 139/69 05/28/20 09:00 Non-Rebreather 15.0 05/28/20 08:00 99.0 95 22 139/69 (92) 94 05/28/20 08:00 68 05/28/20 04:00 88 05/28/20 04:00 99.5 24 141/68 (92) 95 05/28/20 00:00 99.5 24 123/63 (83) 90 05/28/20 00:00 89 05/27/20 21:08 70 135/86 05/27/20 21:00 Non-Rebreather 15.0 05/27/20 20:00 89 05/27/20 20:00 99.2 22 143/68 (93) 96 05/27/20 17:21 129/81 05/27/20 16:00 98.6 82 20 129/81 (97) 94 05/27/20 16:00 79 Height (Feet): 5 Height (Inches): 6.00 Weight (Pounds): 202 HEENT: mucous membranes moist Respiratory/Chest: other - oxygen by NRB mask Cardiovascular: normal rate Abdomen: soft, non tender Extremities: no edema Neurologic/Psychiatric: other - drowsy Laboratory Tests Test 05/27/20 16:57 05/28/20 04:30 05/28/20 06:24 05/28/20 10:37 POC Whole Blood Glucose Pending 222 MG/DL (74-106) H White Blood Count 13.0 K/UL (4.8-10.8) H Red Blood Count 3.17 M/UL (4.70-6.10) L Hemoglobin 10.4 G/DL (14.2-18.0) L Hematocrit 30.6 % (42.0-52.0) L Mean Corpuscular Volume 97 FL (80-99) Mean Corpuscular Hemoglobin 32.8 PG (27.0-31.0) H Mean Corpuscular Hemoglobin Concent 33.9 G/DL (32.0-36.0) Red Cell Distribution Width 12.6 % (11.6-14.8) Platelet Count 194 K/UL (150-450) Mean Platelet Volume 7.5 FL (6.5-10.1) Neutrophils (%) (Auto) % (45.0-75.0) Lymphocytes (%) (Auto) % (20.0-45.0) Monocytes (%) (Auto) % (1.0-10.0) Eosinophils (%) (Auto) % (0.0-3.0) Basophils (%) (Auto) % (0.0-2.0) Differential Total Cells Counted 100 Neutrophils % (Manual) 95 % (45-75) H Lymphocytes % (Manual) 2 % (20-45) L Monocytes % (Manual) 3 % (1-10) Eosinophils % (Manual) 0 % (0-3) Basophils % (Manual) 0 % (0-2) Band Neutrophils 0 % (0-8) Platelet Estimate Adequate Platelet Morphology Normal Polychromasia 1+ Sodium Level 142 MMOL/L (136-145) Potassium Level 4.4 MMOL/L (3.5-5.1) Chloride Level 99 MMOL/L (98-107) Carbon Dioxide Level 32 MMOL/L (21-32) Anion Gap 11 mmol/L (5-15) Blood Urea Nitrogen 97 mg/dL (7-18) H Creatinine 9.9 MG/DL (0.55-1.30) H Estimat Glomerular Filtration Rate 5.3 mL/min (>60) Glucose Level 226 MG/DL (74-106) H Calcium Level 9.1 MG/DL (8.5-10.1) Phosphorus Level 7.4 MG/DL (2.5-4.9) H Total Bilirubin 0.8 MG/DL (0.2-1.0) Aspartate Amino Transf (AST/SGOT) 50 U/L (15-37) H Alanine Aminotransferase (ALT/SGPT) 44 U/L (12-78) Alkaline Phosphatase 126 U/L (46-116) H C-Reactive Protein, Quantitative 28.1 mg/dL (0.00-0.90) H Pro-B-Type Natriuretic Peptide 4769 pg/mL (0-125) H Total Protein 7.0 G/DL (6.4-8.2) Albumin 2.8 G/DL (3.4-5.0) L Globulin 4.2 g/dL Albumin/Globulin Ratio 0.7 (1.0-2.7) L Arterial Blood pH 7.462 (7.350-7.450) Arterial Blood Partial Pressure CO2 38.8 mmHg (35.0-45.0) Arterial Blood Partial Pressure O2 54.8 mmHg (75.0-100.0) L Arterial Blood HCO3 27.1 mmol/L (22.0-26.0) H Arterial Blood Oxygen Saturation 86.1 % (95-100) *L Arterial Blood Base Excess 3.2 (-2-2) H Micheal Test Positive Test 05/28/20 12:20 POC Whole Blood Glucose Pending Current Medications Medications (Trade) Dose Ordered Sig/Claude Route PRN Reason Start Time Stop Time Status Last Admin Dose Admin Acetaminophen (Tylenol) 500 mg Q4H PRN ORAL Mild Pain (Pain Scale 1-3) 05/23/20 23:45 06/22/20 23:44 Aspirin (ASA) 81 mg DAILY ORAL 05/23/20 15:00 07/07/20 14:59 05/28/20 09:46 Barium Sulfate (Varibar Honey) 250 ml NOW PRN RAD 05/28/20 14:15 05/31/20 14:07 Barium Sulfate (Varibar [place]) 240 ml NOW PRN MC RAD 05/28/20 14:15 05/31/20 14:07 Barium Sulfate (Varibar Pudding) 230 ml NOW PRN RAD 05/28/20 14:15 05/31/20 14:07 Barium Sulfate (Varibar Thin Liquid powder) 148 gm NOW PRN MC RAD 05/28/20 14:15 05/31/20 14:07 Ceftriaxone Sodium 1 gm/ Dextrose 55 ml @ 110 mls/hr Q24H IVPB 05/25/20 12:00 06/01/20 11:59 05/27/20 12:34 Dexamethasone Sodium Phosphate (Decadron 10mg/ ml Inj) 6 mg DAILY IV 05/24/20 09:00 06/03/20 08:59 05/28/20 09:46 Dextrose (Dextrose 50%) 25 ml Q30M PRN IV Hypoglycemia 05/24/20 00:15 08/22/20 00:14 Dextrose (Dextrose 50%) 50 ml Q30M PRN IV Hypoglycemia 05/24/20 00:15 08/22/20 00:14 Docusate Sodium (Colace) 100 mg THREE TIMES A DAY ORAL 05/23/20 18:00 06/22/20 17:59 05/28/20 09:46 Ergocalciferol (Drisdol) 50,000 intlu QWEEK ORAL 05/25/20 13:00 06/24/20 12:59 05/25/20 13:19 Heparin Sodium (Porcine) (Heparin 5000 units/ml) 5,000 units EVERY 12 HOURS SUBQ 05/23/20 21:00 07/07/20 20:59 05/28/20 09:47 Hydralazine HCl (Apresoline) 25 mg Q4H PRN ORAL BP over 160 systolic 05/23/20 14:23 08/21/20 14:22 Insulin Aspart (NovoLOG) BEFORE MEALS AND HS SUBQ 05/24/20 06:30 08/22/20 06:29 05/28/20 06:46 Insulin Detemir (Levemir) 10 units EVERY 12 HOURS SUBQ 05/24/20 09:00 08/22/20 09:00 05/28/20 09:53 Lansoprazole (Prevacid) 30 mg Q12HR ORAL 05/28/20 21:00 06/27/20 20:59 Metoclopramide HCl (Reglan) 10 mg Q6H PRN IVP Nausea & Vomiting 05/23/20 14:24 06/22/20 14:23 Metoprolol Tartrate (Lopressor) 25 mg EVERY 12 HOURS ORAL 05/24/20 09:00 08/22/20 08:59 05/28/20 09:46 Nateglinide (Starlix) 120 mg TIAC ORAL 05/23/20 16:30 06/22/20 16:29 05/28/20 06:41 Nitroglycerin (Ntg) 1 patch Q24H TDERMAL 05/23/20 15:00 06/22/20 14:59 05/27/20 17:21 Pioglitazone HCl (Actos) 15 mg ACBREAKFAST ORAL 05/24/20 06:30 06/23/20 06:29 05/28/20 06:41 Quetiapine Fumarate (SEROqueL) 25 mg BEDTIME ORAL 05/26/20 21:00 07/10/20 20:59 05/27/20 21:13 Sevelamer Carbonate (Renvela) 2,400 mg THREE TIMES A DAY ORAL 05/28/20 14:00 08/21/20 17:59 Kyaw Andrews MD May 28, 2020 15:12
[2020-05-28] MEDS: Nitroglycerin Patch 0.4mg TDERMAL SCH (15:14)
[2020-05-28 16:00] VITALS: BP 145/67
--- NOTE | 2020-05-28 16:16 | General Progress Note ---
Subjective ROS Limited/Unobtainable: Yes Allergies: Coded Allergies: No Known Allergies (Unverified , 05/22/20) Objective Last 24 Hour Vital Signs Date Time Temp Pulse Resp B/P (MAP) Pulse Ox O2 Delivery O2 Flow Rate FiO2 05/28/20 15:14 145/67 05/28/20 12:00 98.8 72 24 145/67 (93) 93 05/28/20 12:00 77 05/28/20 09:46 95 139/69 05/28/20 09:00 Non-Rebreather 15.0 05/28/20 08:00 99.0 95 22 139/69 (92) 94 05/28/20 08:00 68 05/28/20 04:00 88 05/28/20 04:00 99.5 24 141/68 (92) 95 05/28/20 00:00 99.5 24 123/63 (83) 90 05/28/20 00:00 89 05/27/20 21:08 70 135/86 05/27/20 21:00 Non-Rebreather 15.0 05/27/20 20:00 89 05/27/20 20:00 99.2 22 143/68 (93) 96 05/27/20 17:21 129/81 Intake and Output 05/27/20 05/28/20 19:00 07:00 Intake Total 175 ml 100 ml Output Total 1200 ml 0 ml Balance -1025 ml 100 ml Intake Oral 120 ml 100 ml IV Total 55 ml Output Urine Total 1200 ml 0 ml # Voids 3 1 Laboratory Tests 05/27/20 16:57: POC Whole Blood Glucose [Pending] 05/28/20 04:30: White Blood Count 13.0H, Red Blood Count 3.17L, Hemoglobin 10.4L, Hematocrit 30.6L, Mean Corpuscular Volume 97, Mean Corpuscular Hemoglobin 32.8H, Mean Corpuscular Hemoglobin Concent 33.9, Red Cell Distribution Width 12.6, Platelet Count 194, Mean Platelet Volume 7.5, Neutrophils (%) (Auto) , Lymphocytes (%) (Auto) , Monocytes (%) (Auto) , Eosinophils (%) (Auto) , Basophils (%) (Auto) , Differential Total Cells Counted 100, Neutrophils % (Manual) 95H, Lymphocytes % (Manual) 2L, Monocytes % (Manual) 3, Eosinophils % (Manual) 0, Basophils % (Manual) 0, Band Neutrophils 0, Platelet Estimate Adequate, Platelet Morphology Normal, Polychromasia 1+, Sodium Level 142, Potassium Level 4.4, Chloride Level 99, Carbon Dioxide Level 32, Anion Gap 11, Blood Urea Nitrogen 97H, Creatinine 9.9H, Estimat Glomerular Filtration Rate 5.3, Glucose Level 226H, Calcium Level 9.1, Phosphorus Level 7.4H, Total Bilirubin 0.8, Aspartate Amino Transf (AST/SGOT) 50H, Alanine Aminotransferase (ALT/SGPT) 44, Alkaline Phosphatase 126H, C-Reactive Protein, Quantitative 28.1H, Pro-B-Type Natriuretic Peptide 4769H, Total Protein 7.0, Albumin 2.8L, Globulin 4.2, Albumin/Globulin Ratio 0.7L 05/28/20 06:24: POC Whole Blood Glucose 222H 05/28/20 10:37: Arterial Blood pH 7.462H, Arterial Blood Partial Pressure CO2 38.8, Arterial Blood Partial Pressure O2 54.8L, Arterial Blood HCO3 27.1H, Arterial Blood Oxygen Saturation 86.1*L, Arterial Blood Base Excess 3.2H, Micheal Test Positive 05/28/20 12:20: POC Whole Blood Glucose [Pending] Height (Feet): 5 Height (Inches): 6.00 Weight (Pounds): 202 Assessment/Plan Problem List: (1) Anemia, chronic renal failure ICD Codes: N18.9 - Chronic kidney disease, unspecified; D63.1 - Anemia in chronic kidney disease SNOMED: 53825075, [id number] Qualifiers: Qualified Codes: N18.5 - Chronic kidney disease, stage 5; D63.1 - Anemia in chronic kidney disease (2) Hyperglycemia due to type 2 diabetes mellitus ICD Codes: E11.65 - Type 2 diabetes mellitus with hyperglycemia SNOMED: 209938955137377, [id number] Qualifiers: Qualified Codes: E11.65 - Type 2 diabetes mellitus with hyperglycemia (3) ESRD (end stage renal disease) on dialysis ICD Codes: N18.6 - End stage renal disease; Z99.2 - Dependence on renal dialysis SNOMED: 880557205 (4) Acute respiratory failure with hypoxia ICD Codes: J96.01 - Acute respiratory failure with hypoxia; J12.89 - Other viral pneumonia SNOMED: 68404960, 777052610 (5) Pneumonia due to COVID-19 virus ICD Codes: U07.1 - COVID-19; J12.89 - Other viral pneumonia SNOMED: [id number] Status: progressing Assessment/Plan: covid pneumonia hypoxic desaturates failed swallow study consulted gi Estela Curry MD May 28, 2020 16:16
--- NOTE | 2020-05-28 19:49 | Cardiac Electrophysiology PN ---
Assessment/Plan Assessment/Plan 1. Troponin elevation due to renal failure in this patient who is on hemodialysis. The EKG shows sinus rhythm at a rate of [address]-T wave abnormalities. On aspirin and metoprolol 25 bid 2. Hypertension. On Lopressor, HD and prn hydralazine 3. End-stage renal disease, on hemodialysis. 4. Diabetes, on insulin. Blood glucose is not controlled, in the 400. 5. COVID pneumonia, on dexamethasone and 15 liter NRBFM DW RN Subjective Subjective Alert in NAD in covid isolation on 15 liter NRB FM. BP better after iv fluids and Albumin. Had 2 liter HD yesterday Objective Last 24 Hour Vital Signs Date Time Temp Pulse Resp B/P (MAP) Pulse Ox O2 Delivery O2 Flow Rate FiO2 05/28/20 16:00 98.6 92 22 145/67 (93) 93 05/28/20 16:00 99 05/28/20 15:14 145/67 05/28/20 12:00 98.8 72 24 145/67 (93) 93 05/28/20 12:00 77 05/28/20 09:46 95 139/69 05/28/20 09:00 Non-Rebreather 15.0 05/28/20 08:00 99.0 95 22 139/69 (92) 94 05/28/20 08:00 68 05/28/20 04:00 88 05/28/20 04:00 99.5 24 141/68 (92) 95 05/28/20 00:00 99.5 24 123/63 (83) 90 05/28/20 00:00 89 05/27/20 21:08 70 135/86 05/27/20 21:00 Non-Rebreather 15.0 05/27/20 20:00 89 05/27/20 20:00 99.2 22 143/68 (93) 96 Intake and Output 05/27/20 05/28/20 19:00 07:00 Intake Total 175 ml 100 ml Output Total 1200 ml 0 ml Balance -1025 ml 100 ml Intake Oral 120 ml 100 ml IV Total 55 ml Output Urine Total 1200 ml 0 ml # Voids 3 1 Laboratory Tests Test 05/28/20 04:30 05/28/20 06:24 05/28/20 10:37 05/28/20 12:20 White Blood Count 13.0 K/UL (4.8-10.8) H Red Blood Count 3.17 M/UL (4.70-6.10) L Hemoglobin 10.4 G/DL (14.2-18.0) L Hematocrit 30.6 % (42.0-52.0) L Mean Corpuscular Volume 97 FL (80-99) Mean Corpuscular Hemoglobin 32.8 PG (27.0-31.0) H Mean Corpuscular Hemoglobin Concent 33.9 G/DL (32.0-36.0) Red Cell Distribution Width 12.6 % (11.6-14.8) Platelet Count 194 K/UL (150-450) Mean Platelet Volume 7.5 FL (6.5-10.1) Neutrophils (%) (Auto) % (45.0-75.0) Lymphocytes (%) (Auto) % (20.0-45.0) Monocytes (%) (Auto) % (1.0-10.0) Eosinophils (%) (Auto) % (0.0-3.0) Basophils (%) (Auto) % (0.0-2.0) Differential Total Cells Counted 100 Neutrophils % (Manual) 95 % (45-75) H Lymphocytes % (Manual) 2 % (20-45) L Monocytes % (Manual) 3 % (1-10) Eosinophils % (Manual) 0 % (0-3) Basophils % (Manual) 0 % (0-2) Band Neutrophils 0 % (0-8) Platelet Estimate Adequate Platelet Morphology Normal Polychromasia 1+ Sodium Level 142 MMOL/L (136-145) Potassium Level 4.4 MMOL/L (3.5-5.1) Chloride Level 99 MMOL/L (98-107) Carbon Dioxide Level 32 MMOL/L (21-32) Anion Gap 11 mmol/L (5-15) Blood Urea Nitrogen 97 mg/dL (7-18) H Creatinine 9.9 MG/DL (0.55-1.30) H Estimat Glomerular Filtration Rate 5.3 mL/min (>60) Glucose Level 226 MG/DL (74-106) H Calcium Level 9.1 MG/DL (8.5-10.1) Phosphorus Level 7.4 MG/DL (2.5-4.9) H Total Bilirubin 0.8 MG/DL (0.2-1.0) Aspartate Amino Transf (AST/SGOT) 50 U/L (15-37) H Alanine Aminotransferase (ALT/SGPT) 44 U/L (12-78) Alkaline Phosphatase 126 U/L (46-116) H C-Reactive Protein, Quantitative 28.1 mg/dL (0.00-0.90) H Pro-B-Type Natriuretic Peptide 4769 pg/mL (0-125) H Total Protein 7.0 G/DL (6.4-8.2) Albumin 2.8 G/DL (3.4-5.0) L Globulin 4.2 g/dL Albumin/Globulin Ratio 0.7 (1.0-2.7) L POC Whole Blood Glucose 222 MG/DL (74-106) H Pending Arterial Blood pH 7.462 (7.350-7.450) Arterial Blood Partial Pressure CO2 38.8 mmHg (35.0-45.0) Arterial Blood Partial Pressure O2 54.8 mmHg (75.0-100.0) L Arterial Blood HCO3 27.1 mmol/L (22.0-26.0) H Arterial Blood Oxygen Saturation 86.1 % (95-100) *L Arterial Blood Base Excess 3.2 (-2-2) H Micheal Test Positive Objective HEAD AND NECK: No JVD. LUNGS: Coarse rhonchi. CARDIOVASCULAR: Regular S1 and S2 with no gallop. ABDOMEN: Soft. EXTREMITIES: No pitting edema. Rhett Nayak MD May 28, 2020 19:49
[2020-05-28 20:00] VITALS: BP 144/75
--- NOTE | 2020-05-28 22:07 | Psychiatric Progress Note ---
Psychiatry Progress Note Psychiatry Progress Note Medications Current Medications Medications (Trade) Dose Ordered Sig/Claude Route PRN Reason Start Time Stop Time Status Last Admin Dose Admin Acetaminophen (Tylenol) 500 mg Q4H PRN ORAL Mild Pain (Pain Scale 1-3) 05/23/20 23:45 06/22/20 23:44 Aspirin (ASA) 81 mg DAILY ORAL 05/23/20 15:00 07/07/20 14:59 05/28/20 09:46 Barium Sulfate (Varibar Honey) 250 ml NOW PRN RAD 05/28/20 14:15 05/31/20 14:07 Barium Sulfate (Varibar [place]) 240 ml NOW PRN RAD 05/28/20 14:15 05/31/20 14:07 Barium Sulfate (Varibar Pudding) 230 ml NOW PRN RAD 05/28/20 14:15 05/31/20 14:07 Barium Sulfate (Varibar Thin Liquid powder) 148 gm NOW PRN RAD 05/28/20 14:15 05/31/20 14:07 Ceftriaxone Sodium 1 gm/ Dextrose 55 ml @ 110 mls/hr Q24H IVPB 05/25/20 12:00 06/01/20 11:59 05/28/20 15:12 Dexamethasone Sodium Phosphate (Decadron 10mg/ ml Inj) 6 mg DAILY IV 05/24/20 09:00 06/03/20 08:59 05/28/20 09:46 Dextrose (Dextrose 50%) 25 ml Q30M PRN IV Hypoglycemia 05/24/20 00:15 08/22/20 00:14 Dextrose (Dextrose 50%) 50 ml Q30M PRN IV Hypoglycemia 05/24/20 00:15 08/22/20 00:14 Docusate Sodium (Colace) 100 mg THREE TIMES A DAY ORAL 05/23/20 18:00 06/22/20 17:59 05/28/20 09:46 Ergocalciferol (Drisdol) 50,000 intlu QWEEK ORAL 05/25/20 13:00 06/24/20 12:59 05/25/20 13:19 Heparin Sodium (Porcine) (Heparin 5000 units/ml) 5,000 units EVERY 12 HOURS SUBQ 05/23/20 21:00 07/07/20 20:59 05/28/20 21:26 Hydralazine HCl (Apresoline) 25 mg Q4H PRN ORAL BP over 160 systolic 05/23/20 14:23 08/21/20 14:22 Insulin Aspart (NovoLOG) BEFORE MEALS AND HS SUBQ 05/24/20 06:30 08/22/20 06:29 05/28/20 21:53 Insulin Detemir (Levemir) 10 units EVERY 12 HOURS SUBQ 05/24/20 09:00 08/22/20 09:00 05/28/20 21:52 Lansoprazole (Prevacid) 30 mg Q12HR ORAL 05/28/20 21:00 06/27/20 20:59 05/28/20 21:23 Metoclopramide HCl (Reglan) 10 mg Q6H PRN IVP Nausea & Vomiting 05/23/20 14:24 06/22/20 14:23 Metoprolol Tartrate (Lopressor) 25 mg EVERY 12 HOURS ORAL 05/24/20 09:00 08/22/20 08:59 05/28/20 21:23 Nateglinide (Starlix) 120 mg TIAC ORAL 05/23/20 16:30 06/22/20 16:29 05/28/20 06:41 Nitroglycerin (Ntg) 1 patch Q24H TDERMAL 05/23/20 15:00 06/22/20 14:59 05/28/20 15:14 Pioglitazone HCl (Actos) 15 mg ACBREAKFAST ORAL 05/24/20 06:30 06/23/20 06:29 05/28/20 06:41 Quetiapine Fumarate (SEROqueL) 25 mg BEDTIME ORAL 05/26/20 21:00 07/10/20 20:59 05/28/20 21:23 Sevelamer Carbonate (Renvela) 2,400 mg THREE TIMES A DAY ORAL 05/28/20 14:00 08/21/20 17:59 05/28/20 15:12 Neurological/Psychiatric: Reports: anxiety, depressed, emotional problems Allergies: Coded Allergies: No Known Allergies (Unverified , 05/22/20) Objective Data Height (Feet): 5 Height (Inches): 6.00 Weight (Pounds): 202 General Appearance: confused Additional Comments: MENTAL STATUS EXAMINATION: Patient is having waxing and waning consciousness. Mood is anxious. Affect is blunted, congruent with mood. Thought process is concrete. Thought content, no suicidal or homicidal ideation. Cognition is impaired. Insight and judgment is impaired. ASSESSMENT: [place] I Acute metabolic encephalopathy. Dementia. [place] II Deferred. [place] III As above. [place] IV Low. [place] V 20. PLAN: 1. We will start patient on Haldol p.r.n. 2. Bilateral soft restraints. Assessment/Plan Status: progressing Mel Clarke MD May 28, 2020 22:07
[2020-05-29] VITALS: BP 148/74
[2020-05-29 04:00] VITALS: BP 135/75
[2020-05-29] MEDS: NovoLOG Insulin Flexpen SUBQ SCH ×2 (05:51→13:06)
[2020-05-29 07:07] LABS: HEMATOCRIT 29.2 % (42.0-52.0); HEMOGLOBIN 9.6 G/DL (14.2-18.0); MEAN CORPUSCULAR VOLUME 98 FL (80-99); PLATELET COUNT 132 K/UL (150-450); WHITE BLOOD COUNT 11.4 K/UL (4.8-10.8)
[2020-05-29 08:00] VITALS: BP 148/74
[2020-05-29] MEDS: Heparin 5000 units/ml inj SUBQ SCH (08:44)
[2020-05-29] MEDS: Renvela 2400 mg pkt ORAL SCH ×2 (08:44→13:00)
[2020-05-29] MEDS: Aspirin Baby 81mg ORAL SCH (08:45)
[2020-05-29] MEDS: Docusate 100mg cap ORAL SCH ×2 (08:45→13:00)
[2020-05-29 08:46] LABS: ALANINE AMINOTRANSFERASE 40 U/L (12-78); ALBUMIN 2.5 G/DL (3.4-5.0); ALBUMIN/GLOBULIN RATIO 0.6 (1.0-2.7); ALKALINE PHOSPHATASE 125 U/L (46-116); ASPARTATE AMINO TRANSFERASE 49 U/L (15-37); BILIRUBIN,TOTAL 0.8 MG/DL (0.2-1.0); BLOOD UREA NITROGEN 147 mg/dL (7-18); CALCIUM 9.1 MG/DL (8.5-10.1); CARBON DIOXIDE 27 MMOL/L (21-32); PHOSPHORUS 10.3 MG/DL (2.5-4.9)
[2020-05-29] MEDS: dexAMETHasone 10mg/ml Inj IV SCH (08:48)
[2020-05-29 08:52] LABS: CHLORIDE 98 MMOL/L (98-107); POTASSIUM 5.3 MMOL/L (3.5-5.1); SODIUM 142 MMOL/L (136-145)
[2020-05-29] MEDS: Levemir Flexpen SUBQ SCH (08:52)
--- NOTE | 2020-05-29 10:05 | Pulmonology Progress Note ---
Subjective ROS Limited/Unobtainable: Yes Interval Events: none major reported per nursing Constitutional: Reports: fever HEENT: Repors: no symptoms Respiratory: Reports: no symptoms Cardiovascular: Reports: no symptoms Gastrointestinal/Abdominal: Reports: no symptoms Genitourinary: Reports: no symptoms Neurologic: Reports: no symptoms Allergies: Coded Allergies: No Known Allergies (Unverified , 05/22/20) Objective Last 24 Hour Vital Signs Date Time Temp Pulse Resp B/P (MAP) Pulse Ox O2 Delivery O2 Flow Rate FiO2 05/29/20 08:44 101 135/75 05/29/20 08:00 97.8 107 28 148/74 (98) 95 05/29/20 04:00 101 05/29/20 04:00 98.7 93 22 135/75 (95) 97 05/29/20 00:00 73 05/29/20 00:00 98.9 101 22 148/74 (98) 94 05/28/20 21:23 95 144/75 05/28/20 21:00 Non-Rebreather 15.0 05/28/20 20:00 103 05/28/20 20:00 99.3 95 24 144/75 (98) 95 05/28/20 16:00 98.6 92 22 145/67 (93) 93 05/28/20 16:00 99 05/28/20 15:14 145/67 05/28/20 12:00 98.8 72 24 145/67 (93) 93 05/28/20 12:00 77 Intake and Output 05/28/20 05/29/20 19:00 07:00 Intake Total 55 ml Output Total 0 ml Balance 55 ml 0 ml IV Total 55 ml Output Urine Total 0 ml # Voids 1 1 Objective 05/29 now back on 15L NRB saturating at 94%; ABG improved; due for dialysis today 05/27 now saturating ok on 5L NC 05/26 saturating 93-94% on 15L NRB; pt appears less agitated today 05/25 saturating 88-93% on 15L NRB; pt appears agitated General Appearance: no acute distress HEENT: normocephalic Respiratory: chest wall non-tender, decreased breath sounds Cardiovascular: normal peripheral pulses, normal rate Abdomen: normal bowel sounds Laboratory Tests 05/28/20 10:37: Arterial Blood pH 7.462H, Arterial Blood Partial Pressure CO2 38.8, Arterial Blood Partial Pressure O2 54.8L, Arterial Blood HCO3 27.1H, Arterial Blood Oxygen Saturation 86.1*L, Arterial Blood Base Excess 3.2H, Micheal Test Positive 05/28/20 12:20: POC Whole Blood Glucose [Pending] 05/29/20 04:00: White Blood Count 11.4H, Red Blood Count 3.00L, Hemoglobin 9.6L, Hematocrit 29.2L, Mean Corpuscular Volume 98, Mean Corpuscular Hemoglobin 32.1H, Mean Corpuscular Hemoglobin Concent 32.9, Red Cell Distribution Width 13.0, Platelet Count 132L, Mean Platelet Volume 8.1, Neutrophils (%) (Auto) , Lymphocytes (%) (Auto) , Monocytes (%) (Auto) , Eosinophils (%) (Auto) , Basophils (%) (Auto) , Neutrophils % (Manual) [Pending], Lymphocytes % (Manual) [Pending], Platelet Est imate [Pending], Platelet Morphology [Pending], Sodium Level 142, Potassium Level 5.3H, Chloride Level 98, Carbon Dioxide Level 27, Blood Urea Nitrogen 147H , Creatinine 13.0H, Estimat Glomerular Filtration Rate 3.9, Glucose Level 307H, Calcium Level 9.1, Phosphorus Level 10.3H, Magnesium Level 3.2H, Total Bilirubin 0.8, Aspartate Amino Transf (AST/SGOT) 49H, Alanine Aminotransferase (ALT/SGPT) 40, Alkaline Phosphatase 125H, C-Reactive Protein, Quantitative 32.9H, Total Protein 6.8, Albumin 2.5L, Globulin 4.3, Albumin/Globulin Ratio 0.6L 05/29/20 05:48: POC Whole Blood Glucose 291H 05/29/20 07:53: Arterial Blood pH 7.455H, Arterial Blood Partial Pressure CO2 36.6, Arterial Blood Partial Pressure O2 80.8, Arterial Blood HCO3 25.2, Arterial Blood Oxygen Saturation 94.2L, Arterial Blood Base Excess 1.4, Micheal Test Positive Current Medications Medications (Trade) Dose Ordered Sig/Claude Route PRN Reason Start Time Stop Time Status Last Admin Dose Admin Acetaminophen (Tylenol) 500 mg Q4H PRN ORAL Mild Pain (Pain Scale 1-3) 05/23/20 23:45 06/22/20 23:44 Aspirin (ASA) 81 mg DAILY ORAL 05/23/20 15:00 07/07/20 14:59 05/28/20 09:46 Barium Sulfate (Varibar Honey) 250 ml NOW PRN RAD 05/28/20 14:15 05/31/20 14:07 Barium Sulfate (Varibar [place]) 240 ml NOW PRN RAD 05/28/20 14:15 05/31/20 14:07 Barium Sulfate (Varibar Pudding) 230 ml NOW PRN RAD 05/28/20 14:15 05/31/20 14:07 Barium Sulfate (Varibar Thin Liquid powder) 148 gm NOW PRN RAD 05/28/20 14:15 05/31/20 14:07 Ceftriaxone Sodium 1 gm/ Dextrose 55 ml @ 110 mls/hr Q24H IVPB 05/25/20 12:00 06/01/20 11:59 05/28/20 15:12 Dexamethasone Sodium Phosphate (Decadron 10mg/ ml Inj) 6 mg DAILY IV 05/24/20 09:00 06/03/20 08:59 05/29/20 08:48 Dextrose (Dextrose 50%) 25 ml Q30M PRN IV Hypoglycemia 05/24/20 00:15 08/22/20 00:14 Dextrose (Dextrose 50%) 50 ml Q30M PRN IV Hypoglycemia 05/24/20 00:15 08/22/20 00:14 Docusate Sodium (Colace) 100 mg THREE TIMES A DAY ORAL 05/23/20 18:00 06/22/20 17:59 05/28/20 09:46 Ergocalciferol (Drisdol) 50,000 intlu QWEEK ORAL 05/25/20 13:00 06/24/20 12:59 05/25/20 13:19 Heparin Sodium (Porcine) (Heparin 5000 units/ml) 5,000 units EVERY 12 HOURS SUBQ 05/23/20 21:00 07/07/20 20:59 05/28/20 21:26 Hydralazine HCl (Apresoline) 25 mg Q4H PRN ORAL BP over 160 systolic 05/23/20 14:23 08/21/20 14:22 Insulin Aspart (NovoLOG) BEFORE MEALS AND HS SUBQ 05/24/20 06:30 08/22/20 06:29 05/29/20 05:51 Insulin Detemir (Levemir) 10 units EVERY 12 HOURS SUBQ 05/24/20 09:00 08/22/20 09:00 05/29/20 08:52 Lansoprazole (Prevacid) 30 mg Q12HR ORAL 05/28/20 21:00 06/27/20 20:59 05/28/20 21:23 Metoclopramide HCl (Reglan) 10 mg Q6H PRN IVP Nausea & Vomiting 05/23/20 14:24 06/22/20 14:23 Metoprolol Tartrate (Lopressor) 25 mg EVERY 12 HOURS ORAL 05/24/20 09:00 08/22/20 08:59 05/28/20 21:23 Nateglinide (Starlix) 120 mg TIAC ORAL 05/23/20 16:30 06/22/20 16:29 05/29/20 05:51 Nitroglycerin (Ntg) 1 patch Q24H TDERMAL 05/23/20 15:00 06/22/20 14:59 05/28/20 15:14 Pioglitazone HCl (Actos) 15 mg ACBREAKFAST ORAL 05/24/20 06:30 06/23/20 06:29 05/29/20 05:51 Quetiapine Fumarate (SEROqueL) 25 mg BEDTIME ORAL 05/26/20 21:00 07/10/20 20:59 05/28/20 21:23 Sevelamer Carbonate (Renvela) 2,400 mg THREE TIMES A DAY ORAL 05/28/20 14:00 08/21/20 17:59 05/28/20 15:12 Assessment/Plan Assessment/Plan 1. COVID pneumonia. - Continue Decadron - On ceftriaxone - currently saturating at 94% on 15L NRB - keep saO2 >92% 2. Pulmonary edema. 3. ESRD, on dialysis. - needs further HD 4. Hypertension. 5. Diabetes mellitus. - on glucose-lowering agents - monitor BGs 6. Elevated inflammatory markers. - DVT prophylaxis with Lovenox/subcu heparin. 7. Pancreatitis. - Keep NPO due to elevated lipase. 8. Sepsis with tachycardia, tachypnea, and fever - ID following failed ST eval, GI being consulted We will follow carefully. The care for this patient was discussed with my supervising physician Time spent for this case was approximately 31 minutes The patient was seen and examined at bedside and all new and available data was reviewed in the patients chart. I agree with the above findings, impression, and plan. (Patient was seen earlier today. Signature timestamp does not reflect patient encounter time) Mario Cruz MD May 29, 2020 10:05 Clyde Griffin MD May 29, 2020 15:03
--- NOTE | 2020-05-29 11:40 | Diagnostic Imaging Report ---
EXAM: XR Chest, 1 View CLINICAL HISTORY: ABD TEND TECHNIQUE: Frontal view of the chest. COMPARISON: Chest x-rays dated 05/22/20 FINDINGS: Lungs: No significant interval change in bilateral pulmonary opacities and reticular interstitial markings. Pleural space: Unremarkable. The costophrenic angles are sharp. No visible pneumothorax. Heart: Unremarkable. No cardiomegaly. Mediastinum: Unremarkable. Bones/joints: Multilevel degenerative disc space loss and endplate osteophytes throughout the visualized spine. Vasculature: Atherosclerotic calcifications within the aortic arch. Tubes, lines and devices: Telemetry leads overlie the thorax. IMPRESSION: No significant interval change in bilateral pulmonary opacities and reticular interstitial markings, concerning for pneumonia.
[2020-05-29 12:00] VITALS: BP 131/70
[2020-05-29] MEDS: cefTRIAXone 1 GM in D5W 55 ML IVPB SCH (13:00)
--- NOTE | 2020-05-29 13:34 | Infectious Diseases Prog Note ---
Assessment/Plan Assessment/Plan IMPRESSION: Sepsis improving COVID-19 pneumonia Hypoxemic respiratory failure, End-stage renal disease, on hemodialysis, Diabetes with hyperglycemia, Anemia, Lymphocytopenia, Hypertension. Pancreatitis RECOMMENDATION: Continue with dexamethasone. Continue Rocephin util tomorrow Subjective ROS Limited/Unobtainable: Yes Respiratory: Reports: shortness of breath, productive cough Allergies: Coded Allergies: No Known Allergies (Unverified , 05/22/20) Objective Last 24 Hour Vital Signs Date Time Temp Pulse Resp B/P (MAP) Pulse Ox O2 Delivery O2 Flow Rate FiO2 05/29/20 12:00 97.6 110 26 131/70 (90) 95 05/29/20 08:44 101 135/75 05/29/20 08:00 102 05/29/20 08:00 97.8 107 28 148/74 (98) 95 05/29/20 04:00 101 05/29/20 04:00 98.7 93 22 135/75 (95) 97 05/29/20 00:00 73 05/29/20 00:00 98.9 101 22 148/74 (98) 94 05/28/20 21:23 95 144/75 05/28/20 21:00 Non-Rebreather 15.0 05/28/20 20:00 103 05/28/20 20:00 99.3 95 24 144/75 (98) 95 05/28/20 16:00 98.6 92 22 145/67 (93) 93 05/28/20 16:00 99 05/28/20 15:14 145/67 Height (Feet): 5 Height (Inches): 6.00 Weight (Pounds): 202 HEENT: mucous membranes moist Respiratory/Chest: other - oxygen by NRB mask Cardiovascular: tachycardia Abdomen: soft, non tender Extremities: no edema Neurologic/Psychiatric: alert, responsive Laboratory Tests Test 05/29/20 04:00 05/29/20 05:48 05/29/20 07:53 White Blood Count 11.4 K/UL (4.8-10.8) H Red Blood Count 3.00 M/UL (4.70-6.10) L Hemoglobin 9.6 G/DL (14.2-18.0) L Hematocrit 29.2 % (42.0-52.0) L Mean Corpuscular Volume 98 FL (80-99) Mean Corpuscular Hemoglobin 32.1 PG (27.0-31.0) H Mean Corpuscular Hemoglobin Concent 32.9 G/DL (32.0-36.0) Red Cell Distribution Width 13.0 % (11.6-14.8) Platelet Count 132 K/UL (150-450) L Mean Platelet Volume 8.1 FL (6.5-10.1) Neutrophils (%) (Auto) % (45.0-75.0) Lymphocytes (%) (Auto) % (20.0-45.0) Monocytes (%) (Auto) % (1.0-10.0) Eosinophils (%) (Auto) % (0.0-3.0) Basophils (%) (Auto) % (0.0-2.0) Differential Total Cells Counted 100 Neutrophils % (Manual) 94 % (45-75) H Lymphocytes % (Manual) 5 % (20-45) L Monocytes % (Manual) 1 % (1-10) Eosinophils % (Manual) 0 % (0-3) Basophils % (Manual) 0 % (0-2) Band Neutrophils 0 % (0-8) Platelet Estimate Decreased L Platelet Morphology Normal Anisocytosis 1+ Sodium Level 142 MMOL/L (136-145) Potassium Level 5.3 MMOL/L (3.5-5.1) H Chloride Level 98 MMOL/L (98-107) Carbon Dioxide Level 27 MMOL/L (21-32) Blood Urea Nitrogen 147 mg/dL (7-18) H Creatinine 13.0 MG/DL (0.55-1.30) H Estimat Glomerular Filtration Rate 3.9 mL/min (>60) Glucose Level 307 MG/DL (74-106) H Calcium Level 9.1 MG/DL (8.5-10.1) Phosphorus Level 10.3 MG/DL (2.5-4.9) H Magnesium Level 3.2 MG/DL (1.8-2.4) H Total Bilirubin 0.8 MG/DL (0.2-1.0) Aspartate Amino Transf (AST/SGOT) 49 U/L (15-37) H Alanine Aminotransferase (ALT/SGPT) 40 U/L (12-78) Alkaline Phosphatase 125 U/L (46-116) H C-Reactive Protein, Quantitative 32.9 mg/dL (0.00-0.90) H Total Protein 6.8 G/DL (6.4-8.2) Albumin 2.5 G/DL (3.4-5.0) L Globulin 4.3 g/dL Albumin/Globulin Ratio 0.6 (1.0-2.7) L POC Whole Blood Glucose 291 MG/DL (74-106) H Arterial Blood pH 7.455 (7.350-7.450) Arterial Blood Partial Pressure CO2 36.6 mmHg (35.0-45.0) Arterial Blood Partial Pressure O2 80.8 mmHg (75.0-100.0) Arterial Blood HCO3 25.2 mmol/L (22.0-26.0) Arterial Blood Oxygen Saturation 94.2 % (95-100) L Arterial Blood Base Excess 1.4 (-2-2) Micheal Test Positive Current Medications Medications (Trade) Dose Ordered Sig/Claude Route PRN Reason Start Time Stop Time Status Last Admin Dose Admin Acetaminophen (Tylenol) 500 mg Q4H PRN ORAL Mild Pain (Pain Scale 1-3) 05/23/20 23:45 06/22/20 23:44 Aspirin (ASA) 81 mg DAILY ORAL 05/23/20 15:00 07/07/20 14:59 05/28/20 09:46 Barium Sulfate (Varibar Honey) 250 ml NOW PRN RAD 05/28/20 14:15 05/31/20 14:07 Barium Sulfate (Varibar [place]) 240 ml NOW PRN RAD 05/28/20 14:15 05/31/20 14:07 Barium Sulfate (Varibar Pudding) 230 ml NOW PRN RAD 05/28/20 14:15 05/31/20 14:07 Barium Sulfate (Varibar Thin Liquid powder) 148 gm NOW PRN RAD 05/28/20 14:15 05/31/20 14:07 Ceftriaxone Sodium 1 gm/ Dextrose 55 ml @ 110 mls/hr Q24H IVPB 05/25/20 12:00 06/01/20 11:59 05/29/20 13:00 Dexamethasone Sodium Phosphate (Decadron 10mg/ ml Inj) 6 mg DAILY IV 05/24/20 09:00 06/03/20 08:59 05/29/20 08:48 Dextrose (Dextrose 50%) 25 ml Q30M PRN IV Hypoglycemia 05/24/20 00:15 08/22/20 00:14 Dextrose (Dextrose 50%) 50 ml Q30M PRN IV Hypoglycemia 05/24/20 00:15 08/22/20 00:14 Docusate Sodium (Colace) 100 mg THREE TIMES A DAY ORAL 05/23/20 18:00 06/22/20 17:59 05/28/20 09:46 Ergocalciferol (Drisdol) 50,000 intlu QWEEK ORAL 05/25/20 13:00 06/24/20 12:59 05/25/20 13:19 Heparin Sodium (Porcine) (Heparin 5000 units/ml) 5,000 units EVERY 12 HOURS SUBQ 05/23/20 21:00 07/07/20 20:59 05/28/20 21:26 Hydralazine HCl (Apresoline) 25 mg Q4H PRN ORAL BP over 160 systolic 05/23/20 14:23 08/21/20 14:22 Insulin Aspart (NovoLOG) BEFORE MEALS AND HS SUBQ 05/24/20 06:30 08/22/20 06:29 05/29/20 13:06 Insulin Detemir (Levemir) 10 units EVERY 12 HOURS SUBQ 05/24/20 09:00 08/22/20 09:00 05/29/20 08:52 Lansoprazole (Prevacid) 30 mg Q12HR ORAL 05/28/20 21:00 06/27/20 20:59 05/28/20 21:23 Metoclopramide HCl (Reglan) 10 mg Q6H PRN IVP Nausea & Vomiting 05/23/20 14:24 06/22/20 14:23 Metoprolol Tartrate (Lopressor) 25 mg EVERY 12 HOURS ORAL 05/24/20 09:00 08/22/20 08:59 05/28/20 21:23 Nateglinide (Starlix) 120 mg TIAC ORAL 05/23/20 16:30 06/22/20 16:29 05/29/20 05:51 Nitroglycerin (Ntg) 1 patch Q24H TDERMAL 05/23/20 15:00 06/22/20 14:59 05/28/20 15:14 Pioglitazone HCl (Actos) 15 mg ACBREAKFAST ORAL 05/24/20 06:30 06/23/20 06:29 05/29/20 05:51 Quetiapine Fumarate (SEROqueL) 25 mg BEDTIME ORAL 05/26/20 21:00 07/10/20 20:59 05/28/20 21:23 Sevelamer Carbonate (Renvela) 2,400 mg THREE TIMES A DAY ORAL 05/28/20 14:00 08/21/20 17:59 05/28/20 15:12 Kyaw Andrews MD May 29, 2020 13:34
--- NOTE | 2020-05-29 14:28 | Cardiac Electrophysiology PN ---
Assessment/Plan Assessment/Plan 1. Troponin elevation due to renal failure in this patient who is on hemodialysis. The EKG shows sinus rhythm at a rate of [address]-T wave abnormalities. On aspirin and metoprolol 25 bid 2. Hypertension. On Lopressor, HD and prn hydralazine 3. End-stage renal disease, on hemodialysis. 4. Diabetes, on insulin. Blood glucose is not controlled, in the 400. 5. COVID pneumonia, on dexamethasone and 15 liter NRBFM 6. Dysphagia, NGT placement pending DW RN Subjective Subjective Alert in NAD in covid isolation on 15 liter NRB FM. BP better after iv fluids and Albumin. NPO now. NGT pending Objective Last 24 Hour Vital Signs Date Time Temp Pulse Resp B/P (MAP) Pulse Ox O2 Delivery O2 Flow Rate FiO2 05/29/20 12:00 98 05/29/20 12:00 97.6 110 26 131/70 (90) 95 05/29/20 08:44 101 135/75 05/29/20 08:00 102 05/29/20 08:00 97.8 107 28 148/74 (98) 95 05/29/20 04:00 101 05/29/20 04:00 98.7 93 22 135/75 (95) 97 05/29/20 00:00 73 05/29/20 00:00 98.9 101 22 148/74 (98) 94 05/28/20 21:23 95 144/75 05/28/20 21:00 Non-Rebreather 15.0 05/28/20 20:00 103 05/28/20 20:00 99.3 95 24 144/75 (98) 95 05/28/20 16:00 98.6 92 22 145/67 (93) 93 05/28/20 16:00 99 05/28/20 15:14 145/67 Intake and Output 05/28/20 05/29/20 19:00 07:00 Intake Total 55 ml Output Total 0 ml Balance 55 ml 0 ml IV Total 55 ml Output Urine Total 0 ml # Voids 1 1 Laboratory Tests Test 05/29/20 04:00 05/29/20 05:48 05/29/20 07:53 White Blood Count 11.4 K/UL (4.8-10.8) H Red Blood Count 3.00 M/UL (4.70-6.10) L Hemoglobin 9.6 G/DL (14.2-18.0) L Hematocrit 29.2 % (42.0-52.0) L Mean Corpuscular Volume 98 FL (80-99) Mean Corpuscular Hemoglobin 32.1 PG (27.0-31.0) H Mean Corpuscular Hemoglobin Concent 32.9 G/DL (32.0-36.0) Red Cell Distribution Width 13.0 % (11.6-14.8) Platelet Count 132 K/UL (150-450) L Mean Platelet Volume 8.1 FL (6.5-10.1) Neutrophils (%) (Auto) % (45.0-75.0) Lymphocytes (%) (Auto) % (20.0-45.0) Monocytes (%) (Auto) % (1.0-10.0) Eosinophils (%) (Auto) % (0.0-3.0) Basophils (%) (Auto) % (0.0-2.0) Differential Total Cells Counted 100 Neutrophils % (Manual) 94 % (45-75) H Lymphocytes % (Manual) 5 % (20-45) L Monocytes % (Manual) 1 % (1-10) Eosinophils % (Manual) 0 % (0-3) Basophils % (Manual) 0 % (0-2) Band Neutrophils 0 % (0-8) Platelet Estimate Decreased L Platelet Morphology Normal Anisocytosis 1+ Sodium Level 142 MMOL/L (136-145) Potassium Level 5.3 MMOL/L (3.5-5.1) H Chloride Level 98 MMOL/L (98-107) Carbon Dioxide Level 27 MMOL/L (21-32) Blood Urea Nitrogen 147 mg/dL (7-18) H Creatinine 13.0 MG/DL (0.55-1.30) H Estimat Glomerular Filtration Rate 3.9 mL/min (>60) Glucose Level 307 MG/DL (74-106) H Calcium Level 9.1 MG/DL (8.5-10.1) Phosphorus Level 10.3 MG/DL (2.5-4.9) H Magnesium Level 3.2 MG/DL (1.8-2.4) H Total Bilirubin 0.8 MG/DL (0.2-1.0) Aspartate Amino Transf (AST/SGOT) 49 U/L (15-37) H Alanine Aminotransferase (ALT/SGPT) 40 U/L (12-78) Alkaline Phosphatase 125 U/L (46-116) H C-Reactive Protein, Quantitative 32.9 mg/dL (0.00-0.90) H Total Protein 6.8 G/DL (6.4-8.2) Albumin 2.5 G/DL (3.4-5.0) L Globulin 4.3 g/dL Albumin/Globulin Ratio 0.6 (1.0-2.7) L POC Whole Blood Glucose 291 MG/DL (74-106) H Arterial Blood pH 7.455 (7.350-7.450) Arterial Blood Partial Pressure CO2 36.6 mmHg (35.0-45.0) Arterial Blood Partial Pressure O2 80.8 mmHg (75.0-100.0) Arterial Blood HCO3 25.2 mmol/L (22.0-26.0) Arterial Blood Oxygen Saturation 94.2 % (95-100) L Arterial Blood Base Excess 1.4 (-2-2) Micheal Test Positive Objective HEAD AND NECK: No JVD. LUNGS: Coarse rhonchi. CARDIOVASCULAR: Regular S1 and S2 with no gallop. ABDOMEN: Soft. EXTREMITIES: No pitting edema. Rhett Nayak MD May 29, 2020 14:28
--- NOTE | 2020-05-29 17:15 | Emergency Room Report ---
History of Present Illness General Chief Complaint: Dyspnea/Respdistress Source: Patient Present Illness Allergies: Coded Allergies: No Known Allergies (Unverified , 05/22/20) COVID-19 Screening Contact w/high risk pt: Yes Experienced COVID-19 symptoms?: Yes COVID-19 Testing performed CONFERENCE DIRECTOR: Yes COVID-19 Screening: Positive COVID-19 COVID-19 Testing Source: outside source Nursing Documentation-PMH Hx Cardiac Problems: No Hx Hypertension: Yes Hx Diabetes: Yes Hx Cancer: No Hx Gastrointestinal Problems: No Hx Dialysis: Yes - LUE shunt Hx Neurological Problems: No Physical Exam Vital Signs Date Time Temp Pulse Resp B/P (MAP) Pulse Ox O2 Delivery O2 Flow Rate FiO2 05/25/20 07:32 Non-Rebreather 15.0 05/25/20 07:55 98.7 101 19 127/81 (96) 95 05/27/20 11:10 92 Procedures Central Line Central Line : Consent: Emergent Central Line Lumen: triple Maximal Sterile Barrier Tech: yes cap, yes mask, yes sterile gown No Max Barrier Tech Because: emergency insertion Central Line Postion: femoral (R) US Guided Line?: No Vessel visualized with U/S: Right Femoral Vein Complications: none Central Line Post Position: sutured, good blood return Attempts: One Patient Tolerated: Well Complications: None Intubation Intubation : Consent: Emergent Intubation Method: orotracheal Tube Size (cm): 7.5 Breath Sounds after Intubation: equal Intubation Complications: no complications Post Intubation Xray: Yes Attempts: One Patient Tolerated: Well Complications: None Medical Decision Making Diagnostic Impression: Primary Impression: Pneumonia due to COVID-19 virus Additional Impressions: Acute respiratory failure with hypoxia Pancreatitis, acute Qualified Codes: K85.90 - Acute pancreatitis without necrosis or infection, unspecified ACS (acute coronary syndrome) Hyperglycemia due to type 2 diabetes mellitus Qualified Codes: E11.65 - Type 2 diabetes mellitus with hyperglycemia Anemia, chronic renal failure Qualified Codes: N18.5 - Chronic kidney disease, stage 5; D63.1 - Anemia in chronic kidney disease ER Course I was called for a CODE BLUE. When I arrived CPR was in progress. Please see separate CODE BLUE sheet for details. Patient was emergently intubated as described above. Per nursing report the patient had become agitated and tore off his nonrebreather and quickly desatted and then had worsening bradycardia and asystole. He was given multiple rounds of epinephrine and sodium bicarbonate. Return of spontaneous circulation was achieved and an emergent femoral central line was placed as described above without any complications. I was called again for another CODE BLUE. Return of spontaneous circulation was achieved after 2 rounds of CPR and 2 doses of epinephrine. I was called for a current third CODE BLUE. CPR was in progress when I arrived. Patient was coded for a total of approximately 15 minutes. He received multiple rounds of epinephrine and sodium bicarbonate. On physical examination pupils were fixed and dilated and patient was completely unresponsive. He was pulseless. After several rounds on pulse check the patient was pulseless and was in V. fib. He was shocked 1 time with 120 J. CPR was then resumed and after another round of CPR the patient was pulseless and monitor was in PEA arrest. Time of 1614. Last Vital Signs Date Time Temp Pulse Resp B/P (MAP) Pulse Ox O2 Delivery O2 Flow Rate FiO2 05/29/20 12:00 98 05/29/20 12:00 97.6 26 131/70 (90) 95 05/29/20 09:00 Non-Rebreather 15.0 05/27/20 14:35 90 Disposition: ADMITTED INPATIENT Condition: Serious Referrals: NON PHYSICIAN (PCP) Carlos Mccrary M.D. May 29, 2020 17:15
--- NOTE | 2020-05-29 20:31 | General Progress Note ---
Subjective ROS Limited/Unobtainable: Yes Allergies: Coded Allergies: No Known Allergies (Unverified , 05/22/20) Objective Last 24 Hour Vital Signs Date Time Temp Pulse Resp B/P (MAP) Pulse Ox O2 Delivery O2 Flow Rate FiO2 05/29/20 12:00 98 05/29/20 12:00 97.6 110 26 131/70 (90) 95 05/29/20 09:00 Non-Rebreather 15.0 05/29/20 08:44 101 135/75 05/29/20 08:00 102 05/29/20 08:00 97.8 107 28 148/74 (98) 95 05/29/20 04:00 101 05/29/20 04:00 98.7 93 22 135/75 (95) 97 05/29/20 00:00 73 05/29/20 00:00 98.9 101 22 148/74 (98) 94 05/28/20 21:23 95 144/75 05/28/20 21:00 Non-Rebreather 15.0 Intake and Output 05/28/20 05/29/20 19:00 07:00 Intake Total 55 ml Output Total 0 ml Balance 55 ml 0 ml IV Total 55 ml Output Urine Total 0 ml # Voids 1 1 Laboratory Tests 05/29/20 04:00: White Blood Count 11.4H, Red Blood Count 3.00L, Hemoglobin 9.6L, Hematocrit 29.2L, Mean Corpuscular Volume 98, Mean Corpuscular Hemoglobin 32.1H, Mean Corpuscular Hemoglobin Concent 32.9, Red Cell Distribution Width 13.0, Platelet Count 132L, Mean Platelet Volume 8.1, Neutrophils (%) (Auto) , Lymphocytes (%) (Auto) , Monocytes (%) (Auto) , Eosinophils (%) (Auto) , Basophils (%) (Auto) , Differential Total Cells Counted 100, Neutrophils % (Manual) 94H, Lymphocytes % (Manual) 5L, Monocytes % (Manual) 1, Eosinophils % (Manual) 0, Basophils % (Manual) 0, Band Neutrophils 0, Platelet Estimate DecreasedL, Platelet Morphology Normal, Anisocytosis 1+, Sodium Level 142, Potassium Level 5.3H, Chloride Level 98, Carbon Dioxide Level 27, Blood Urea Nitrogen 147H, Creatinine 13.0H, Estimat Glomerular Filtration Rate 3.9, Glucose Level 307H, Calcium Level 9.1, Phosphorus Level 10.3H, Magnesium Level 3.2H, Total Bilirubin 0.8, Aspartate Amino Transf (AST/SGOT) 49H, Alanine Aminotransferase (ALT/SGPT) 40, Alkaline Phosphatase 125H, C-Reactive Protein, Quantitative 32.9H, Total Protein 6.8, Albumin 2.5L, Globulin 4.3, Albumin/Globulin Ratio 0.6L 05/29/20 05:48: POC Whole Blood Glucose 291H 05/29/20 07:53: Arterial Blood pH 7.455H, Arterial Blood Partial Pressure CO2 36.6, Arterial Blood Partial Pressure O2 80.8, Arterial Blood HCO3 25.2, Arterial Blood Oxygen Saturation 94.2L, Arterial Blood Base Excess 1.4, Micheal Test Positive 05/29/20 15:14: POC Whole Blood Glucose [Pending] Height (Feet): 5 Height (Inches): 6.00 Weight (Pounds): 202 Assessment/Plan Problem List: (1) Anemia, chronic renal failure ICD Codes: N18.9 - Chronic kidney disease, unspecified; D63.1 - Anemia in chronic kidney disease SNOMED: 58374111, 12901401 Qualifiers: Qualified Codes: N18.5 - Chronic kidney disease, stage 5; D63.1 - Anemia in chronic kidney disease (2) Hyperglycemia due to type 2 diabetes mellitus ICD Codes: E11.65 - Type 2 diabetes mellitus with hyperglycemia SNOMED: 035790271809521, 73052563 Qualifiers: Qualified Codes: E11.65 - Type 2 diabetes mellitus with hyperglycemia (3) ESRD (end stage renal disease) on dialysis ICD Codes: N18.6 - End stage renal disease; Z99.2 - Dependence on renal dialysis SNOMED: 519752965 (4) Acute respiratory failure with hypoxia ICD Codes: J96.01 - Acute respiratory failure with hypoxia; J12.89 - Other viral pneumonia SNOMED: 01262479, 640979220 (5) Pneumonia due to COVID-19 virus ICD Codes: U07.1 - COVID-19; J12.89 - Other viral pneumonia SNOMED: 325611399565332733 Status: progressing Assessment/Plan: covid pneumonia resp failure s/p cardiopulmonary arrest failed swallow study consulted gi dr medley sepsis Estela Seals MD May 29, 2020 20:31
--- NOTE | 2020-05-29 20:57 | Psychiatric Progress Note ---
Psychiatry Progress Note Psychiatry Progress Note Medications Current Medications Medications (Trade) Dose Ordered Sig/Claude Route PRN Reason Start Time Stop Time Status Last Admin Dose Admin Acetaminophen (Tylenol) 500 mg Q4H PRN ORAL Mild Pain (Pain Scale 1-3) 05/23/20 23:45 06/22/20 23:44 Aspirin (ASA) 81 mg DAILY ORAL 05/23/20 15:00 07/07/20 14:59 05/28/20 09:46 Barium Sulfate (Varibar Honey) 250 ml NOW PRN RAD 05/28/20 14:15 05/31/20 14:07 Barium Sulfate (Varibar [place]) 240 ml NOW PRN RAD 05/28/20 14:15 05/31/20 14:07 Barium Sulfate (Varibar Pudding) 230 ml NOW PRN RAD 05/28/20 14:15 05/31/20 14:07 Barium Sulfate (Varibar Thin Liquid powder) 148 gm NOW PRN RAD 05/28/20 14:15 05/31/20 14:07 Ceftriaxone Sodium 1 gm/ Dextrose 55 ml @ 110 mls/hr Q24H IVPB 05/25/20 12:00 06/01/20 11:59 05/29/20 13:00 Dexamethasone Sodium Phosphate (Decadron 10mg/ ml Inj) 6 mg DAILY IV 05/24/20 09:00 06/03/20 08:59 05/29/20 08:48 Dextrose (Dextrose 50%) 25 ml Q30M PRN IV Hypoglycemia 05/24/20 00:15 08/22/20 00:14 Dextrose (Dextrose 50%) 50 ml Q30M PRN IV Hypoglycemia 05/24/20 00:15 08/22/20 00:14 Docusate Sodium (Colace) 100 mg THREE TIMES A DAY ORAL 05/23/20 18:00 06/22/20 17:59 05/28/20 09:46 Ergocalciferol (Drisdol) 50,000 intlu QWEEK ORAL 05/25/20 13:00 06/24/20 12:59 05/25/20 13:19 Heparin Sodium (Porcine) (Heparin 5000 units/ml) 5,000 units EVERY 12 HOURS SUBQ 05/23/20 21:00 07/07/20 20:59 05/28/20 21:26 Hydralazine HCl (Apresoline) 25 mg Q4H PRN ORAL BP over 160 systolic 05/23/20 14:23 08/21/20 14:22 Insulin Aspart (NovoLOG) BEFORE MEALS AND HS SUBQ 05/24/20 06:30 08/22/20 06:29 05/29/20 13:06 Insulin Detemir (Levemir) 10 units EVERY 12 HOURS SUBQ 05/24/20 09:00 08/22/20 09:00 05/29/20 08:52 Lansoprazole (Prevacid) 30 mg Q12HR ORAL 05/28/20 21:00 06/27/20 20:59 05/28/20 21:23 Metoclopramide HCl (Reglan) 10 mg Q6H PRN IVP Nausea & Vomiting 05/23/20 14:24 06/22/20 14:23 Metoprolol Tartrate (Lopressor) 25 mg EVERY 12 HOURS ORAL 05/24/20 09:00 08/22/20 08:59 05/28/20 21:23 Nateglinide (Starlix) 120 mg TIAC ORAL 05/23/20 16:30 06/22/20 16:29 05/29/20 05:51 Nitroglycerin (Ntg) 1 patch Q24H TDERMAL 05/23/20 15:00 06/22/20 14:59 05/28/20 15:14 Pioglitazone HCl (Actos) 15 mg ACBREAKFAST ORAL 05/24/20 06:30 06/23/20 06:29 05/29/20 05:51 Quetiapine Fumarate (SEROqueL) 25 mg BEDTIME ORAL 05/26/20 21:00 07/10/20 20:59 05/28/20 21:23 Sevelamer Carbonate (Renvela) 2,400 mg THREE TIMES A DAY ORAL 05/28/20 14:00 08/21/20 17:59 05/28/20 15:12 Neurological/Psychiatric: Reports: anxiety, depressed, emotional problems Allergies: Coded Allergies: No Known Allergies (Unverified , 05/22/20) Objective Data Height (Feet): 5 Height (Inches): 6.00 Weight (Pounds): 202 General Appearance: confused Additional Comments: MENTAL STATUS EXAMINATION: Patient is having waxing and waning consciousness. Mood is anxious. Affect is blunted, congruent with mood. Thought process is concrete. Thought content, no suicidal or homicidal ideation. Cognition is impaired. Insight and judgment is impaired. ASSESSMENT: Elaine I Acute metabolic encephalopathy. Dementia. Elaine II Deferred. Elaine III As above. Elaine IV Low. Elaine V 20. PLAN: 1. We will start patient on Haldol p.r.n. 2. Bilateral soft restraints. Assessment/Plan Status: progressing Mel Clarke MD May 29, 2020 20:57
--- NOTE | 2020-05-29 21:19 | General Progress Note ---
Subjective Allergies: Coded Allergies: No Known Allergies (Unverified , 05/22/20) Subjective Patient seen this am, around 11 am on 100% NRM non communicative doing poorly - not felt to be candidate for NGT subsequent to my visit was transferred to ICU and Objective Last 24 Hour Vital Signs Date Time Temp Pulse Resp B/P (MAP) Pulse Ox O2 Delivery O2 Flow Rate FiO2 05/29/20 12:00 98 05/29/20 12:00 97.6 110 26 131/70 (90) 95 05/29/20 09:00 Non-Rebreather 15.0 05/29/20 08:44 101 135/75 05/29/20 08:00 102 05/29/20 08:00 97.8 107 28 148/74 (98) 95 05/29/20 04:00 101 05/29/20 04:00 98.7 93 22 135/75 (95) 97 05/29/20 00:00 73 05/29/20 00:00 98.9 101 22 148/74 (98) 94 05/28/20 21:23 95 144/75 Intake and Output 05/28/20 05/29/20 19:00 07:00 Intake Total 55 ml Output Total 0 ml Balance 55 ml 0 ml IV Total 55 ml Output Urine Total 0 ml # Voids 1 1 Laboratory Tests 05/29/20 04:00: White Blood Count 11.4H, Red Blood Count 3.00L, Hemoglobin 9.6L, Hematocrit 29.2L, Mean Corpuscular Volume 98, Mean Corpuscular Hemoglobin 32.1H, Mean Corpuscular Hemoglobin Concent 32.9, Red Cell Distribution Width 13.0, Platelet Count 132L, Mean Platelet Volume 8.1, Neutrophils (%) (Auto) , Lymphocytes (%) (Auto) , Monocytes (%) (Auto) , Eosinophils (%) (Auto) , Basophils (%) (Auto) , Differential Total Cells Counted 100, Neutrophils % (Manual) 94H, Lymphocytes % (Manual) 5L, Monocytes % (Manual) 1, Eosinophils % (Manual) 0, Basophils % (Manual) 0, Band Neutrophils 0, Platelet Estimate DecreasedL, Platelet Morphology Normal, Anisocytosis 1+, Sodium Level 142, Potassium Level 5.3H, Chloride Level 98, Carbon Dioxide Level 27, Blood Urea Nitrogen 147H, Creatinine 13.0H, Estimat Glomerular Filtration Rate 3.9, Glucose Level 307H, Calcium Level 9.1, Phosphorus Level 10.3H, Magnesium Level 3.2H, Total Bilirubin 0.8, Aspartate Amino Transf (AST/SGOT) 49H, Alanine Aminotransferase (ALT/SGPT) 40, Alkaline Phosphatase 125H, C-Reactive Protein, Quantitative 32.9H, Total Protein 6.8, Albumin 2.5L, Globulin 4.3, Albumin/Globulin Ratio 0.6L 05/29/20 05:48: POC Whole Blood Glucose 291H 05/29/20 07:53: Arterial Blood pH 7.455H, Arterial Blood Partial Pressure CO2 36.6, Arterial Blood Partial Pressure O2 80.8, Arterial Blood HCO3 25.2, Arterial Blood Oxygen Saturation 94.2L, Arterial Blood Base Excess 1.4, Micheal Test Positive 05/29/20 15:14: POC Whole Blood Glucose [Pending] Height (Feet): 5 Height (Inches): 6.00 Weight (Pounds): 202 Objective Elderly man NCAT (+) O2 Mask coarse ronchi RR abd soft no edema Assessment/Plan Status: progressing Assessment/Plan: Assessment -COVID PNA - Resp failure - Dypphagia - HTN - DM Recommendation - supportive care - O2 - not candidate for NGT placement Morgan Osei MD May 29, 2020 21:19
--- NOTE | 2020-06-01 12:29 | Discharge Summary ---
Discharge Summary Discharge Summary _ Date of admission: 05/22/2020 Date of expiration: 05/29/2020 History of Present Illness and Brief Hospital Course Mr. Rosario was a 69-year-old male with a history of high blood pressure, diabetes, and renal failure on hemodialysis, who presented to the ER for evaluation of shortness of breath x5 days. Associated symptoms included fever, chills, body pain, nonproductive cough and congestion. Patient was hypoxic on room air on arrival. Patient was immediately given supplemental oxygen and his saturation improved. Patient reported that his shortness of breath was worse on exertion and when laying flat. Patient tested positive for Covid 19 in the ER. Initial chest x-ray on 05/22/2020 showed patchy bilateral infiltrates, and trace pleural effusions. Patient received supplemental oxygen, antibiotics, steroids, and Lovenox in the ER and was admitted to the hospital for further management and care. Given his presentation and chest x-ray findings, dexamethasone was continued given his hypoxia. He was also provided with broad-spectrum antibiotics for pneumonia coverage. By admission day 4, he was on 15 L of oxygen via nonrebreather mask. However his oxygen saturation remained suboptimal. He also had a history of diabetes mellitus and was put on glucose-lowering agents. His blood glucose level was closely monitored. However optimal blood glucose control was difficult to be achieved secondary to his critical illness and steroid use. His lab studies showed elevated inflammatory markers and he was given DVT prophylaxis with Lovenox and subcu heparin. His laboratory studies showed elevated lipase and he was kept on n.p.o. except his medications. His nutrition was further complicated by his dysphagia. Patient required NG tube placement and NG tube feeding but his condition was not stable for NG tube placement. Patient continued to have waxing and waning consciousness with anxious mood. He was started on Haldol as needed per psychiatry recommendation. Patient had a history of ESRD and he was dialyzed on admission day 2 and continued to be dialyzed every 2 days. Phosphate binders were adjusted accordingly. Lipase level and vitamin D level were monitored. He was put on renal diet. Patient's prognosis remained grave throughout admission. His oxygen saturation did not improve despite incremental increase in supplemental oxygen support. On 05/29/2020 at 15: 10, patient began to desaturate. Respiratory therapist began compression and manual resuscitation. After successful rounds of compression, ROSC was achieved. Patient was intubated with ET tube 7.5, 22 cm @ lip. At 15:43, CODE BLUE was called again. Respiratory therapist started compressions. After multiple rounds of compressions, patient achieved ROSC. Patient remained on ventilator support. At 16:13, patient coded again. Compression was started. ROSC was not achieved despite multiple rounds of compressions. Patient was pronounced at 18:01 on 05/29/2020. Cause of : Cardiopulmonary arrest. Consultants: Cardiology Dr. Nayak Infectious disease Dr. Andrews Pulmonology Dr. Griffin Psychiatry Dr. Clarke Nephrology Dr. Azar Final diagnoses Troponin elevation, likely due to renal failure Hypertension, ESRD Diabetes mellitus COVID-19 pneumonia Dysphagia sepsis undue that Sepsis Hypoxemic respiratory failure Anemia of chronic renal failure Lymphocytopenia Pancreatitis Pulmonary edema I have been assigned to dictate discharge summary for this account. Mario Gutierrez Jun 01, 2020 12:29
--- NOTE | 2020-06-03 02:10 | Cardiology Report ---
APPROVED REPORT EKG Measurement Heart [id number] CT 140P-14 [id number] <Conclusion> Sinus tachycardia Otherwise normal ECG
--- NOTE | 2020-06-03 02:19 | Cardiology Report ---
APPROVED REPORT EXAM: Two-dimensional and M-mode echocardiogram with Doppler and color Doppler. INDICATION Congestive Heart Failure M-Mode DIMENSIONS IVSd1.0 (0.7-1.1cm)Left Atrium (MM)3.2 (1.6-4.0cm) LVDd4.4 (3.5-5.6cm)Aortic Root4.0 (2.0-3.7cm) PWd1.0 (0.7-1.1cm)Aortic Cusp Exc.1.7 (1.5-2.0cm) IVSs1.6 cmEPSS0.5 (>1.0cm) LVDs2.8 (2.5-4.0cm) PWs1.6 cm <Conclusion> Technically difficult study due to poor acoustical windows, patient has oxygen tube, and patient has difficulty to breath. Poor endocardial definition Grossly normal left ventricular chamber size, systolic function and wall motion to extent visualized. Left ventricular ejection fraction estimated to be 65 %. No evidence of left ventricular hypertrophy. No evidence of pericardial effusion. Mild left atrial enlargement. Right cardiac chamber sizes are within normal limits. Focal aortic valve sclerosis with adequate cusp excursion. Thickened mitral valve leaflets with normal excursion. Mitral annulus and aortic root calcification. Pulmonic valve not well visualized. Normal tricuspid valve structure. IVC at normal size with physiologic collapse. A color flow and spectral Doppler study was performed and revealed: Trace aortic regurgitation. Mild mitral regurgitation. Mitral diastolic velocities suggest reduced left ventricular relaxation c/w mild LV diastolic dysfunction (Grade I ). Mild tricuspid regurgitation. Tricuspid systolic velocities suggests peak right ventricular systolic pressure of 28 mmHg. Trace pulmonic regurgitation present.
--- NOTE | 2020-06-03 02:33 | Cardiology Report ---
APPROVED REPORT EKG Measurement Heart [id number] [id number] <Conclusion> Sinus rhythm with short NH Otherwise normal ECG
== END 2020-05-29 23:44 | disposition expired | DRG 871 ==
LOC: EDBD 21:46 → EMR 22:01 → 2E 23:42 → EDBEDREQSVC 23:46 → EDBEDREQ 23:46 → ICU 05-29 15:53
PROC: 5A12012 Performance of Cardiac Output, Single, Manual (ICD-10-PCS; principal; 2020-05-29)
PROC: 06HM33Z Insertion of Infusion Device into Right Femoral Vein, Percutaneous Approach (ICD-10-PCS; 2020-05-29)
PROC: 0BH17EZ Insertion of Endotracheal Airway into Trachea, Via Natural or Artificial Opening (ICD-10-PCS; 2020-05-29)
DX: A41.89 Other specified sepsis (principal); U07.1 COVID-19; J96.01 Acute respiratory failure with hypoxia; J12.82 Pneumonia due to coronavirus disease 2019; K85.90 Acute pancreatitis without necrosis or infection, unspecified; N18.6 End stage renal disease; G93.41 Metabolic encephalopathy; I12.0 Hypertensive chronic kidney disease with stage 5 chronic kidney disease or end stage renal disease; E11.65 Type 2 diabetes mellitus with hyperglycemia; D63.1 Anemia in chronic kidney disease; E11.22 Type 2 diabetes mellitus with diabetic chronic kidney disease; Z99.2 Dependence on renal dialysis; R13.10 Dysphagia, unspecified; D72.810 Lymphocytopenia
CPT/HCPCS: 36415; 71045; 80053; 80061; 81003; 82306; 82550; 82553; 82607; 82728; 82746; 82803; 82962; 82977; 83036; 83540; 83550; 83605; 83615; 83690; 83735; 83880; 84100; 84443; 84484; 84550; 85007; 85025; 85379; 85610; 85730; 86140; 86706; 87040; 87081; 92950; 93005; 93306; 94640; 96365; 96367; 96375; 99291; J1815; U0002